=== PATIENT | female | born 1955 | race Caucasian/White ===

== ENCOUNTER 2020-11-11 16:25 | Emergency (ER) | payer MEDICARE, OTHER, SELFPAY ==
--- NOTE | 2020-11-11 | ECG_ITS ---
Test Reason : SHOTNESS OF BREATH Blood Pressure : / mmHG Vent. Rate : 059 BPM Atrial Rate : 059 BPM P-R Int : 150 ms QRS Dur : 084 ms QT Int : 410 ms P-R-T Axes : 073 034 065 degrees QTc Int : 405 ms Sinus bradycardia Otherwise normal ECG No previous ECGs available Referred By: Generic ED Physician Electronically Signed By:MARKY WEBB MD
--- NOTE | ~2020-11-11 | XR_ITS ---
EXAMINATION: CHEST 2 VIEWS CLINICAL INFORMATION: SOB . COMPARISON: No recent pertinent prior studies are available for comparison. TECHNIQUE: PA and lateral views of the chest obtained. FINDINGS: The lungs are well expanded. No focal infiltrate, effusion, edema, or pneumothorax. Cardiac and mediastinal silhouettes are within normal limits for technique. No acute bony abnormality seen XR/XR chest 2V IMPRESSION: No evidence of acute disease
[2020-11-11 16:40] VITALS: BP 128/84; PULSE 65; RESP 22; TEMP 36.6; O2SAT 100; BMI 24.3
[2020-11-11 17:06] LABS: MANUAL DIFF FLAG NO
[2020-11-11 17:07] LABS: Basophils Percent Auto 0.5 % (0-2); Eosinophils Absolute Auto 0.2 X10*3/uL (0.0-0.4); Eosinophils Percent Auto 3.6 % (0-4); Hematocrit 37.2 % (37-47); Hemoglobin 12.6 g/dl (12.0-16.0); Imm Gran Abs Auto 0.03 X10*3/uL (0.00-0.03); Imm Gran Pct Auto 0.5 % (0.0-0.4); Lymphocytes Absolute Auto 1.5 X10*3/uL (1.2-4.9); Lymphocytes Percent Auto 25.6 % (20-40); Mean Corpuscular HGB Conc 33.9 g/dl (31.0-35.0); Mean Corpuscular Hemoglobin 34.4 pg (27.0-33.0); Mean Corpuscular Volume 101.6 fL (80-98); Monocytes Absolute Auto 0.4 X10*3/uL (0.1-1.2); Monocytes Percent Auto 7.5 % (2-11); Neutrophils Absolute Auto 3.6 X10*3/uL (2.0-8.3); Neutrophils Percent Auto 62.3 % (45-73); Platelet Count 261 X10*3/uL (160-400); Red Blood Count 3.66 X10*6/uL (4.20-5.50); Red Cell Distribution Width 12.1 % (11.0-16.0); White Blood Count 5.9 X10*3/uL (4.8-10.8)
[2020-11-11 17:16] VITALS: BP 113/80; PULSE 66; RESP 18; TEMP 36.8; O2SAT 100
--- NOTE | 2020-11-11 17:19 | PC.NURSE ---
PT REPORTS FALLING ABOUT 2 WEEKS AGO. RIGHT RIB PAIN AFTER. NOW FEELING SOB AND HEAVY FEELING ON HER CHEST, PAIN WITH INSPIRATION. NSR ON TELE. PT CONCERNED OVER COVID BUT HAS HAD BOTH DOSES OF VACCINE. LABS DRAWN IN TRIAGE, WAITING RESULTS.
[2020-11-11 17:26] LABS: Anion Gap 10 (12-20); Blood Urea Nitrogen 15 mg/dL (9-16); Calcium 9.2 mg/dL (8.4-10.2); Carbon Dioxide 29 mmol/L (22-29); Chloride 101 mmol/L (96-108); Creatinine Clr Calc Pharmacy 57.2; Estimated Glomerular Filt Rate > 60; Glucose Random 88 mg/dL (60-115); Potassium 4.2 mmol/L (3.3-5.1); Sodium 136 mmol/L (135-145)
[2020-11-11 17:31] LABS: D Dimer < 200 NG/ML
[2020-11-11 17:33] LABS: Troponin-I High Sensitivity < 3.5 ng/L (<3.5-17.0)
--- NOTE | 2020-11-11 17:36 | ED.SOB ---
HPI - SOB/Dyspnea General Chief Complaint: Dyspnea Stated Complaint: SOB/Chest pressure Time Seen by Provider: 11/11/20 17:18 Source: patient Mode of arrival: ambulatory Limitations: no limitations History of Present Illness HPI Narrative: 64 years old female who is otherwise healthy, patient presented with mid chest pain started since yesterday described as pressure, pain has been constant since yesterday, no radiation for the pain just localized to the mid chest, nothing make it worse, nothing make it better, never had similar pain in the past, pain was associated with shortness of breath also been described as constant but worsen with exertion. Patient was skiing in her backyard 10 days ago when she fell on her right side complain of right-sided chest wall that is getting better now. Patient declined any recent travel, no lower extremity swelling or tenderness. No history of PE/DVT. Related Data Allergies Allergy/AdvReac Type Severity Reaction Status Date / Time No Known Allergies Allergy Verified 11/11/20 16:49 [No Known Allergies*] Review of Systems Review of Systems: All other systems are reviewed and are negative Constitutional: Reports as per HPI and Reports no additional constitutional complaints Eyes: Reports as per HPI and Reports no additional eye complaints Reports system reviewed and no additional complaints, except as documented Cardiovascular: Reports as per HPI and Reports no additional cardiovascular complaints Respiratory: Reports as per HPI and Reports no additional respiratory complaints Gastrointestinal: Reports as per HPI and Reports no additional gastrointestinal complaints Genitourinary: Reports no additional female genitourinary complaints Musculoskeletal: Reports no additional musculoskeletal complaints Skin/Breast: Reports system reviewed and no additional complaints, except as docu Psychiatric: Reports no additional psychiatric complaints Endocrine: Reports no additional endocrine complaints Hematologic/Lymphatic: Reports no additional hematologic/lymphatic complaints Allergic/Immunologic: Reports no additional allergic/immunologic complaints Reports system reviewed and no additional complaints, except as documented and Reports Abnormal speech present [facility] Past Medical History Medical History Hemochromatosis No known health problems Social History Social History Smoking Status: Never smoker Smoked in Last 30 Days: No Use of substances other than those prescribed or required for medical reasons: No Advance Directives: No Advance Directives Information Provided: Yes Physical Exam Vital Signs: Vital Signs: Last Vital Signs Temp 98.3 F 11/11/20 17:16 Pulse 66 11/11/20 17:16 Resp 18 11/11/20 17:16 BP 113/80 11/11/20 17:16 Pulse Ox 100 11/11/20 17:16 Body Mass Index 24.3 Vital signs have been reviewed as normal and appeared to be correct. Blood pressure normal. Heart rate normal. Respiration rate normal. Temperature normal. Oxygen saturation normal. Appearance: Alert. Oriented X3. No acute distress. Head: Normal external exam. Normocephalic. Atraumatic. No Franco signs noted. No raccoon eyes noted Eyes: PERRLA. EOMI. Conjunctiva and sclera normal. Eyelids normal. ENT: TM's Normal. Pharynx normal. Uvula midline. Moist mucous membranes. No trismus noted. No drooling noted. No muffled voice noted. Neck: Normal inspection. Neck supple. FROM. No adenopathy. Thyroid Normal. No meningeal signs. No neck mass noted. CVS: Normal heart rate and rhythm. Heart sound normal. No murmurs noted. Pulses normal throughout. Respiratory: No respiratory distress. Painless inspiration. Breath sounds normal. No wheezes/rales/rhonchi noted. Chest nontender. No accessory muscle usage noted or decreased air movement noted. Abdomen: Soft and nontender. Bowel sounds normal in all 4 quadrants. No distention noted. No organomegaly noted. No visible injury noted. Back: No CVA tenderness. Full range of motion noted. Skin: Skin warm and dry. Normal skin color. Normal skin turgor. No rashes/lesions/lacerations noted. Extremities: No lower extremity edema. Extremities exhibit normal range of motion. Extremities nontender. Neuro: Oriented X 3. No motor deficit. No sensory deficit. Reflexes normal. Course Course Course Narrative: Assessment and plan. 64-year-old female otherwise healthy, recently vaccinated for COVID-19, presented with chest pain/shortness of breath. Patient has HEART score 1, patient also has no risk for PE/DVT with normal D-dimer. Chest x-ray ruled out traumatic etiology for patient's symptoms. Patient maintains normal vital sign while she is in the emergency department. Patient was reassured and instructed to follow-up with her PCP for routine follow-up. MDM - SOB/Dyspnea Lab Data Attestation: I reviewed the patient's lab results. Result diagrams: 11/11/20 17:00 11/11/20 17:00 Labs: Lab Results 11/11/20 11/11/20 11/11/20 Range/Units 17:00 17:00 17:00 WBC 5.9 (4.8-10.8) X10*3/uL RBC 3.66 L (4.20-5.50) X10*6/uL Hgb 12.6 (12.0-16.0) g/dl Hct 37.2 (37-47) % MCV 101.6 H (80-98) fL MCH 34.4 H (27.0-33.0) pg MCHC 33.9 (31.0-35.0) g/dl RDW 12.1 (11.0-16.0) % Plt Count 261 (160-400) X10*3/uL MPV 9.0 L (9.4-12.3) fL Immature Gran % (Auto) 0.5 H (0.0-0.4) % Neut % (Auto) 62.3 (45-73) % Lymph % (Auto) 25.6 (20-40) % [place] % (Auto) 7.5 (2-11) % Eos % (Auto) 3.6 (0-4) % Baso % (Auto) 0.5 (0-2) % Lymph # (Auto) 1.5 (1.2-4.9) X10*3/uL [place] # (Auto) 0.4 (0.1-1.2) X10*3/uL Eos # (Auto) 0.2 (0.0-0.4) X10*3/uL Baso # (Auto) 0.0 (0.0-0.2) X10*3/uL Abs Immat Gran (auto) 0.03 (0.00-0.03) X10*3/uL Absolute Neuts (auto) 3.6 (2.0-8.3) X10*3/uL Absolute Nucleated RBC 0.000 (0.0-0.012) X10*3/uL Nucleated RBC % (auto) 0.0 (0.0-0.2) /100WBC D-Dimer < 200 NG/ML Hold Blue Top SEE NOTE Sodium 136 (135-145) mmol/L Potassium 4.2 (3.3-5.1) mmol/L Chloride 101 (96-108) mmol/L Carbon Dioxide 29 (22-29) mmol/L Anion Gap 10 L (12-20) BUN 15 (9-16) mg/dL Creatinine 0.80 (0.5-1.4) mg/dL Estim Creat Clear Calc 57.2 Estimated GFR > 60 Random Glucose 88 (60-115) mg/dL Calcium 9.2 (8.4-10.2) mg/dL Troponin I High Sens (<3.5-17.0) ng/L B-Natriuretic Peptide (<100) pg/mL Coronavirus (PCR) (Negative) Influenza Type A (PCR) (Negative) Influenza Type B (PCR) (Negative) RSV RNA Qual (PCR) (Negative) 11/11/20 11/11/20 11/11/20 Range/Units 17:00 17:00 17:00 WBC (4.8-10.8) X10*3/uL RBC (4.20-5.50) X10*6/uL Hgb (12.0-16.0) g/dl Hct (37-47) % MCV (80-98) fL MCH (27.0-33.0) pg MCHC (31.0-35.0) g/dl RDW (11.0-16.0) % Plt Count (160-400) X10*3/uL MPV (9.4-12.3) fL Immature Gran % (Auto) (0.0-0.4) % Neut % (Auto) (45-73) % Lymph % (Auto) (20-40) % [place] % (Auto) (2-11) % Eos % (Auto) (0-4) % Baso % (Auto) (0-2) % Lymph # (Auto) (1.2-4.9) X10*3/uL [place] # (Auto) (0.1-1.2) X10*3/uL Eos # (Auto) (0.0-0.4) X10*3/uL Baso # (Auto) (0.0-0.2) X10*3/uL Abs Immat Gran (auto) (0.00-0.03) X10*3/uL Absolute Neuts (auto) (2.0-8.3) X10*3/uL Absolute Nucleated RBC (0.0-0.012) X10*3/uL Nucleated RBC % (auto) (0.0-0.2) /100WBC D-Dimer NG/ML Hold Blue Top Sodium (135-145) mmol/L Potassium (3.3-5.1) mmol/L Chloride (96-108) mmol/L Carbon Dioxide (22-29) mmol/L Anion Gap (12-20) BUN (9-16) mg/dL Creatinine (0.5-1.4) mg/dL Estim Creat Clear Calc Estimated GFR Random Glucose (60-115) mg/dL Calcium (8.4-10.2) mg/dL Troponin I High Sens < 3.5 (<3.5-17.0) ng/L B-Natriuretic Peptide 54 (<100) pg/mL Coronavirus (PCR) NEGATIVE (Negative) Influenza Type A (PCR) NEGATIVE (Negative) Influenza Type B (PCR) NEGATIVE (Negative) RSV RNA Qual (PCR) NEGATIVE (Negative) Imaging Data Chest x-ray: Radiologist's impression: No evidence of acute disease. ECG Data Interpretation: Sinus bradycardia at 59 beats per minute, normal axis deviation, normal intervals, no ST-T changes. Discharge Plan Discharge Clinical Impression: Chest pain Patient Disposition: Home, Self-Care Instructions: Chest Pain (ED) Referrals: Juan David Ramos MD [Primary Care Provider] - 2 days
[2020-11-11 17:48] LABS: Influenza A PCR NEGATIVE (Negative); Influenza B PCR NEGATIVE (Negative); Resp Syncy Virus RNA Qual PCR NEGATIVE (Negative); SARS COV2 PCR INHOUSE NEGATIVE (Negative)
[2020-11-11 18:24] LABS: B Type Natriuretic Peptide 54 pg/mL (<100)
[2020-11-11 19:02] VITALS: BP 116/55; PULSE 64; RESP 16; O2SAT 98
== END 2020-11-11 19:04 | disposition home or self-care (01) ==
PROVIDERS: Emergency Provider Emergency Medicine; PCP Family Medicine
DX: R07.9 Chest pain, unspecified (principal); R00.1 Bradycardia, unspecified; Z20.822 Contact with and (suspected) exposure to COVID-19
CPT/HCPCS: 0241U; 36415; 71046; 80048; 83880; 84484; 85025; 85379; 93005; 99283; 99284

== ENCOUNTER 2021-04-17 13:58 | Outpatient (REF) | payer MEDICARE, OTHER, SELFPAY ==
[2021-04-17 15:27] LABS: MANUAL DIFF FLAG NO
[2021-04-17 15:29] LABS: Basophils Percent Auto 0.3 % (0-2); Eosinophils Absolute Auto 0.1 X10*3/uL (0.0-0.4); Eosinophils Percent Auto 1.7 % (0-4); Hematocrit 36.6 % (37-47); Hemoglobin 12.5 g/dl (12.0-16.0); Imm Gran Abs Auto 0.01 X10*3/uL (0.00-0.03); Imm Gran Pct Auto 0.2 % (0.0-0.4); Lymphocytes Absolute Auto 1.4 X10*3/uL (1.2-4.9); Lymphocytes Percent Auto 23.7 % (20-40); Mean Corpuscular HGB Conc 34.2 g/dl (31.0-35.0); Mean Corpuscular Hemoglobin 34.3 pg (27.0-33.0); Mean Corpuscular Volume 100.5 fL (80-98); Mean Platelet Volume 9.8 fL (9.4-12.3); Monocytes Absolute Auto 0.4 X10*3/uL (0.1-1.2); Monocytes Percent Auto 6.8 % (2-11); Neutrophils Absolute Auto 4.1 X10*3/uL (2.0-8.3); Neutrophils Percent Auto 67.3 % (45-73); Platelet Count 217 X10*3/uL (160-400); Red Blood Count 3.64 X10*6/uL (4.20-5.50); Red Cell Distribution Width 12.5 % (11.0-16.0)
[2021-04-17 15:48] LABS: Alanine Aminotransferase 12 U/L (0-31); Albumin Level 4.4 g/dL (3.5-5.0); Alkaline Phosphatase 58 U/L (39-117); Aspartate Amino Transferase 22 U/L (5-31); Bilirubin Direct 0.2 mg/dL (0.0-0.5); Bilirubin Total 0.5 mg/dL (0.0-1.0); Total Protein 7.1 g/dL (6.5-8.0)
[2021-04-18 16:37] LABS: Folate 13.9 ng/mL (> or = 4.0); Vitamin B12 592 pg/mL (200-900)
== END 2021-04-17 13:59 | disposition home or self-care (01) ==
LOC: HO.LAB 13:58
PROVIDERS: PCP Family Medicine; Visit Provider Nurse Practitioner
DX: D75.89 Other specified diseases of blood and blood-forming organs (principal); R14.0 Abdominal distension (gaseous)
CPT/HCPCS: 36415; 80076; 82607; 82746; 85025; 99202

== ENCOUNTER → 2021-06-07 13:42 | Outpatient (BNVA) | payer MEDICARE, OTHER, SELFPAY | PROVIDERS: PCP Family Medicine; Referring Provider Family Medicine; Visit Provider Nurse Practitioner | DX: Z12.11 Encounter for screening for malignant neoplasm of colon (principal); D75.89 Other specified diseases of blood and blood-forming organs; R23.8 Other skin changes | CPT/HCPCS: 99212 ==

== ENCOUNTER 2021-06-13 14:00 | Outpatient (RCR) | payer MEDICARE, OTHER, SELFPAY | END 2021-06-22 09:44 | disposition home or self-care (01) | LOC: HO.PT 14:00 | PROVIDERS: PCP Family Medicine; Visit Provider Nurse Practitioner Family | DX: M25.572 Pain in left ankle and joints of left foot (principal) | CPT/HCPCS: 97110; 97112; 97162; 97530 ==

== ENCOUNTER 2021-11-19 13:59 | Outpatient (REF) | payer MEDICARE, OTHER, SELFPAY ==
--- NOTE | ~2021-11-19 | XR_ITS ---
EXAMINATION: XR LUMBOSACRAL SPINE CLINICAL INFORMATION: Low back pain. COMPARISON: None TECHNIQUE: Three views of the lumbosacral spine. FINDINGS: There is normal lumbar lordosis. The vertebral heights, alignment and disc heights are normal. There is no visible acute fracture, dislocation or lytic process seen. There is moderate right L4-L5 facet joint arthropathy. No lytic or sclerotic process seen. Incidental findings of a radiopaque density adjacent to right L2 vertebra, question pelvic stone. Paravertebral soft tissues are normal. XR/XR lumbar spine 2-3V IMPRESSION: Moderate right L4-L5 facet joint arthropathy. No visible acute fracture, dislocation or lytic process seen. Suspect right renal pelvic stone.
== END 2021-11-19 14:00 | disposition home or self-care (01) ==
LOC: HO.XRAY 13:59
PROVIDERS: PCP Nurse Practitioner Family; Visit Provider Nurse Practitioner Family
DX: M54.50 Low back pain, unspecified (principal)
CPT/HCPCS: 72100

== ENCOUNTER → 2021-12-28 13:30 | Outpatient (BNVA) | payer MEDICARE, OTHER, SELFPAY | PROVIDERS: PCP Nurse Practitioner Family; Visit Provider Advanced Practice Midwife | DX: Z01.411 Encounter for gynecological examination (general) (routine) with abnormal findings (principal); N95.1 Menopausal and female climacteric states | CPT/HCPCS: 99212 ==

== ENCOUNTER 2022-04-08 11:51 | Outpatient (REF) | payer MEDICARE, OTHER, SELFPAY ==
--- NOTE | ~2022-04-08 | MM_ITS ---
EXAMINATION: MM SCREENING DIGITAL BREAST TOMOSYNTHESIS, BILATERAL CLINICAL INFORMATION: Screening. Asymptomatic. The lifetime risk of breast cancer based on the Tyrer-Cuzick Model is 4%. COMPARISON: Outside mammography 2-D images: 04/29/2014, 04/28/2013 ([facility]). TECHNIQUE: Digital breast tomosynthesis is performed in both the craniocaudal and mediolateral oblique views along with computer-aided detection (CAD). Synthesized 2D images are generated from the tomosynthesis. FINDINGS: There are scattered areas of fibroglandular density (ACR BI-RADS breast composition Category b). Left breast parenchymal pattern is similar to prior outside studies. There is no mass or architectural abnormality. Neither breast shows abnormal calcifications. The bilateral axilla and skin contours are unremarkable. Right CC view has subtle asymmetric density outer quadrant mid depth 6.5 cm from nipple without MLO correlate, possibly summation artifact. Patient will be recalled for additional imaging. MM/MM tomosynthesis screening BI IMPRESSION: Right: -Asymmetric density mid outer quadrant on CC view, possibly summation artifact. Left: -No mammographic evidence of malignancy. ASSESSMENT: BI-RADS 0: Incomplete - Need Additional Imaging Evaluation RECOMMENDATION: 1. Additional views of the right breast (spot CC, rolled CC x2). 2. Targeted ultrasound if warranted after review of the additional views. 3. Radiology department staff will contact the patient for additional imaging. This patient's information was entered into a reminder system with a target due date for their next mammogram.
== END 2022-04-08 11:52 | disposition home or self-care (01) ==
LOC: HO.MAMMO 11:51
PROVIDERS: Visit Provider Advanced Practice Midwife
DX: Z12.31 Encounter for screening mammogram for malignant neoplasm of breast (principal)
CPT/HCPCS: 77063; 77067

== ENCOUNTER 2022-04-23 13:00 | Outpatient (RCR) | payer MEDICARE, OTHER, SELFPAY | END 2022-06-11 14:37 | disposition home or self-care (01) | LOC: HO.PTWFD 13:00 | PROVIDERS: PCP Nurse Practitioner Family; Visit Provider Nurse Practitioner Family | DX: M25.511 Pain in right shoulder (principal) | CPT/HCPCS: 97014; 97110; 97140; 97161; 97535 ==

== ENCOUNTER 2022-04-24 13:16 | Outpatient (REF) | payer MEDICARE, OTHER, SELFPAY ==
--- NOTE | ~2022-04-24 | XR_ITS ---
EXAMINATION: XR SACROILIAC JOINTS CLINICAL INFORMATION: Sacrococcygeal disorder COMPARISON: None TECHNIQUE: 3 views of the sacroiliac joints FINDINGS: Bone alignment is normal. No fracture or dislocation is seen. Sacroiliac joints are normal without evidence of sacroiliitis. There are degenerative changes of the visualized lower lumbar spine. There are mild degenerative changes at the hip joints with small acetabular osteophytes. Soft tissues are unremarkable. XR/XR sacroiliac joint 1-2V IMPRESSION: Normal sacroiliac joints.
--- NOTE | ~2022-04-24 | XR_ITS ---
EXAMINATION: XR HIP, RIGHT CLINICAL INFORMATION: Sacrococcygeal disorder COMPARISON: None TECHNIQUE: Two views of the right hip and one view of the pelvis. FINDINGS: Bone alignment is normal. No fracture or dislocation is seen. There is mild right hip arthritis with superior lateral acetabular osteophyte. Bones of the pelvis are normal. There are degenerative changes of the visualized lower lumbar spine, right greater than left. Soft tissues are unremarkable. XR/XR hip RT w PEL1V IMPRESSION: Mild right hip arthritis.
== END 2022-04-24 13:17 | disposition home or self-care (01) ==
LOC: HO.XRAY 13:16
PROVIDERS: PCP Physician Assistant; Visit Provider Nurse Practitioner Family
DX: M53.3 Sacrococcygeal disorders, not elsewhere classified (principal)
CPT/HCPCS: 72200; 73502

== ENCOUNTER 2022-06-27 09:16 | Outpatient (REF) | payer MEDICARE, OTHER, SELFPAY ==
[2022-06-27 10:18] LABS: Hematocrit 37.5 % (37.0-47.0); Hemoglobin 12.7 g/dl (12.0-16.0); Mean Corpuscular HGB Conc 33.9 g/dl (31.0-35.0); Mean Corpuscular Volume 100.3 fL (80.0-98.0); Mean Platelet Volume 9.4 fL (9.4-12.3); Platelet Count 254 X10*3/uL (160-400); Red Blood Count 3.74 X10*6/uL (4.20-5.50); Red Cell Distribution Width 12.3 % (11.0-16.0); White Blood Count 4.4 X10*3/uL (4.8-10.8)
[2022-06-27 10:43] LABS: Alanine Aminotransferase 16 U/L (0-31); Albumin Level 4.3 g/dL (3.5-5.0); Alkaline Phosphatase 47 U/L (39-117); Anion Gap 14 (12-20); Aspartate Amino Transferase 23 U/L (5-31); Bilirubin Total 0.3 mg/dL (0.0-1.0); Blood Urea Nitrogen 11 mg/dL (9-16); Calcium 9.1 mg/dL (8.4-10.2); Carbon Dioxide 25 mmol/L (22-29); Chloride 100 mmol/L (96-108); Cholesterol 184 mg/dL; Estimated Glomerular Filt Rate > 60; Glucose Fasting 88 mg/dL (60-99); HDL Cholesterol 75 mg/dL; Iron 138 mcg/dL (30-160); LDL Cholesterol Calculated 97 mg/dl; Percent Iron Saturation 59 % (15-50); Potassium 4.4 mmol/L (3.3-5.1); Sodium 135 mmol/L (135-145); Total Iron Binding Capacity 234 mcg/dL (228-428); Total Protein 6.7 g/dL (6.5-8.0); Triglycerides 61 mg/dL; Unsaturated Iron Binding 96 ug/dL
[2022-06-27 11:07] LABS: Ferritin 128 ng/mL (10-250); TSH reflex Free T4 1.42 uIU/mL (0.32-4.0)
== END 2022-06-27 09:17 | disposition home or self-care (01) ==
LOC: HO.LAB 09:16
PROVIDERS: Visit Provider Physician Assistant
DX: E83.119 Hemochromatosis, unspecified (principal); Z13.220 Encounter for screening for lipoid disorders; Z13.29 Encounter for screening for other suspected endocrine disorder; Z13.1 Encounter for screening for diabetes mellitus
CPT/HCPCS: 36415; 80053; 80061; 82728; 83540; 84443; 85027

== ENCOUNTER 2022-07-02 10:21 | Outpatient (REF) | payer MEDICARE, OTHER, SELFPAY ==
--- NOTE | ~2022-07-02 | MM_ITS ---
EXAMINATION: MM DIAGNOSTIC DIGITAL BREAST TOMOSYNTHESIS, RIGHT CLINICAL INFORMATION: Recall from screening for subtle asymmetric density mid outer right breast limited to CC view, possibly summation artifact. COMPARISON: Mammography: 04/08/2022, outside mammography 04/29/2014 and 04/28/2013 ([facility]). TECHNIQUE: Digital breast tomosynthesis is performed. 2D images are generated from the tomosynthesis. The following views are obtained: Spot CC, rolled CC x2. FINDINGS: There are scattered areas of fibroglandular density (ACR BI-RADS breast composition Category b). The subtle asymmetric density is less conspicuous on the spot CC view. There is no correlate on the rolled CC views and no correlate is seen on the MLO screening exam. Finding is therefore believed to represent summation artifact. As a precaution, short interval follow-up right mammography will be requested to exclude remote possibility of a developing density. Results are discussed with the patient at time of visit. MM/MM tomosynthesis added views R IMPRESSION: Additional views show no persistent asymmetric density on the rolled CC view is suggesting summation artifact as suspected. ASSESSMENT: BI-RADS 3: Probably Benign RECOMMENDATION: Diagnostic right mammography in 6 months. This patient's information was entered into a reminder system with a target due date for their next mammogram.
== END 2022-07-02 10:22 | disposition home or self-care (01) ==
LOC: HO.MAMMO 10:21
PROVIDERS: PCP Physician Assistant; Visit Provider Physician Assistant
DX: R92.2 Inconclusive mammogram (principal)
CPT/HCPCS: 77061; 77065

== ENCOUNTER 2022-08-09 11:42 | Outpatient (REF) | payer MEDICARE, OTHER, SELFPAY ==
[2022-08-09 12:21] LABS: Appearance Urine Clear; Color Urine Yellow; Glucose Urine UA Negative (Negative); Leukocyte Esterase Urine Negative (Negative); Nitrite Urine Negative (Negative); Urine Blood Negative (Negative); Urine Ketones Negative (Negative); Urine Protein Negative (Neg-Trace)
== END 2022-08-09 11:43 | disposition home or self-care (01) ==
LOC: HO.LAB 11:42
PROVIDERS: PCP Physician Assistant; Visit Provider Physician Assistant
DX: R30.0 Dysuria (principal)
CPT/HCPCS: 81003

== ENCOUNTER 2022-11-05 11:40 | Outpatient (REF) | payer MEDICARE, OTHER, SELFPAY ==
--- NOTE | ~2022-11-05 | XR_ITS ---
EXAMINATION: RIGHT HIP AND RIGHT SHOULDER CLINICAL INFORMATION: Pain COMPARISON: None TECHNIQUE: Right shoulder 4 views. Right hip 2 views FINDINGS: Right hip: There is no visible acute fracture, dislocation or subluxation. The joint space is maintained normal. No bony erosive changes seen. The soft tissues are normal. Right shoulder: The glenohumeral and AC joint space is maintained normal. No visible acute fracture, dislocation or subluxation seen. The soft tissues are normal. XR/XR hip RT min 2V IMPRESSION: 1. Unremarkable right hip exam. 2. Unremarkable right shoulder exam.
--- NOTE | ~2022-11-05 | XR_ITS ---
EXAMINATION: RIGHT HIP AND RIGHT SHOULDER CLINICAL INFORMATION: Pain COMPARISON: None TECHNIQUE: Right shoulder 4 views. Right hip 2 views FINDINGS: Right hip: There is no visible acute fracture, dislocation or subluxation. The joint space is maintained normal. No bony erosive changes seen. The soft tissues are normal. Right shoulder: The glenohumeral and AC joint space is maintained normal. No visible acute fracture, dislocation or subluxation seen. The soft tissues are normal. XR/XR shoulder RT min 2V IMPRESSION: 1. Unremarkable right hip exam. 2. Unremarkable right shoulder exam.
== END 2022-11-05 11:41 | disposition home or self-care (01) ==
LOC: HO.XRAY 11:40
PROVIDERS: PCP Physician Assistant; Visit Provider Internal Medicine
DX: M25.511 Pain in right shoulder (principal); M25.551 Pain in right hip
CPT/HCPCS: 73030; 73502

== ENCOUNTER → 2022-12-30 13:49 | Outpatient (BNVA) | payer MEDICARE, OTHER, SELFPAY | PROVIDERS: PCP Physician Assistant; Visit Provider Advanced Practice Midwife ==

== ENCOUNTER 2022-12-31 14:25 | Outpatient (REF) | payer MEDICARE, OTHER, SELFPAY ==
--- NOTE | ~2022-12-31 | MM_ITS ---
EXAMINATION: MM DIAGNOSTIC DIGITAL BREAST TOMOSYNTHESIS, RIGHT CLINICAL INFORMATION: Short interval six-month follow-up right breast for subtle asymmetric density mid outer breast limited to CC view, suspected summation artifact. Assess for developing density. The lifetime risk of breast cancer based on the Tyrer-Cuzick Model is 4%. COMPARISON: Mammography: 07/02/2022, 04/08/2022, outside mammography 05/13/2018 ([facility]) TECHNIQUE: Digital breast tomosynthesis is performed in both the craniocaudal and mediolateral oblique views along with computer-aided detection (CAD). Synthesized 2D images are generated from the tomosynthesis. FINDINGS: There are scattered areas of fibroglandular density (ACR BI-RADS breast composition Category b). The asymmetric density noted on prior exam 04/08/2022 is no longer demonstrated. There is no developing density or interval mass or architectural abnormality. No abnormal calcifications. The stromal markings appearing normal. The skin contours are smooth. The axilla is unremarkable. Results are provided to the patient at time of visit by the technologist. MM/MM tomosynthesis diagnostic RT IMPRESSION: -The asymmetric density for follow-up is no longer demonstrated. -No mammographic evidence of malignancy. ASSESSMENT: BI-RADS 1: Negative RECOMMENDATION: Routine annual mammography screening. This patient's information was entered into a reminder system with a target due date for their next mammogram.
== END 2022-12-31 14:26 | disposition home or self-care (01) ==
LOC: HO.MAMMO 14:25
PROVIDERS: PCP Physician Assistant; Visit Provider Physician Assistant
DX: N64.89 Other specified disorders of breast (principal)
CPT/HCPCS: 77061; 77065

== ENCOUNTER 2023-02-04 11:18 | Outpatient (REF) | payer MEDICARE, OTHER, SELFPAY ==
[2023-02-04 12:10] LABS: Hematocrit 36.1 % (37.0-47.0); Hemoglobin 12.1 g/dl (12.0-16.0); Mean Corpuscular HGB Conc 33.5 g/dl (31.0-35.0); Mean Corpuscular Hemoglobin 34.1 pg (27.0-33.0); Mean Corpuscular Volume 101.7 fL (80.0-98.0); Mean Platelet Volume 9.4 fL (9.4-12.3); Platelet Count 233 X10*3/uL (160-400); Red Blood Count 3.55 X10*6/uL (4.20-5.50); Red Cell Distribution Width 12.1 % (11.0-16.0); White Blood Count 3.9 X10*3/uL (4.8-10.8)
[2023-02-04 13:53] LABS: Alanine Aminotransferase 13 U/L (0-31); Albumin Level 4.2 g/dL (3.5-5.0); Alkaline Phosphatase 57 U/L (39-117); Anion Gap 10 (12-20); Aspartate Amino Transferase 22 U/L (5-31); Bilirubin Total 0.6 mg/dL (0.0-1.0); Blood Urea Nitrogen 9 mg/dL (9-16); Calcium 9.3 mg/dL (8.4-10.2); Carbon Dioxide 28 mmol/L (22-29); Chloride 105 mmol/L (96-108); Cholesterol 187 mg/dL; Estimated Glomerular Filt Rate > 60; Glucose Fasting 95 mg/dL (60-99); HDL Cholesterol 83 mg/dL; LDL Cholesterol Calculated 94 mg/dl; Magnesium 2.2 mg/dL (1.6-2.6); Potassium 4.5 mmol/L (3.3-5.1); Sodium 138 mmol/L (135-145); Total Protein 6.6 g/dL (6.5-8.0); Triglycerides 52 mg/dL
[2023-02-04 14:21] LABS: Vitamin B12 803 pg/mL (200-900)
== END 2023-02-04 11:19 | disposition home or self-care (01) ==
LOC: HO.LAB 11:18
PROVIDERS: PCP Physician Assistant; Visit Provider Physician Assistant
DX: M25.551 Pain in right hip (principal); M25.552 Pain in left hip; E83.110 Hereditary hemochromatosis; M81.0 Age-related osteoporosis without current pathological fracture; E53.8 Deficiency of other specified B group vitamins; D75.89 Other specified diseases of blood and blood-forming organs; Z13.1 Encounter for screening for diabetes mellitus; Z13.220 Encounter for screening for lipoid disorders
CPT/HCPCS: 36415; 80053; 80061; 82607; 82746; 83735; 85027

== ENCOUNTER 2023-05-20 12:29 | Outpatient (AMB) | payer MEDICARE, OTHER, SELFPAY ==
--- NOTE | 2023-05-20 12:32 | A.OFFVIS_ITS ---
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 Hx of PT with mild relief. Patient reports off and on pain for many years. She states a pulling sensation when walking, sit ting and exercising. She describes her pain as sharp and severe in nature. Most of the pain is located within her right groin. Patient states that she has not been able to walk for exercise because of her pain. She has tried Tylenol and anti-inflammatory medicines which gave her minimal relief. Allergies No Known Allergies [No Known Allergies*] Allergy (Verified 05/20/23 12:38) Medication List - Last Reconciled 05/20/23 by Irvin Zamora MD alendronate 70 mg PO QWEEK buspirone 75 mg PO BEDTIME calcium carbonate (Calcium 500) 500 mg PO DAILY cholecalciferol (vitamin D3) 10 mcg PO DAILY escitalopram oxalate 20 mg PO DAILY 90 days estradiol 0.01%(0.1mg/gram) (Estrace) 1 g vaginal 2XW PRN [id number] 500-400-80 mg tabs PO omega-3 fatty acids (Fish Oil Concentrate) 1,000 mg PO DAILY turmeric mg PO vitamin B complex 1 tab PO DAILY PFSH Medical History Hemochromatosis No known health problems Osteoporosis Surgical History H/O colonoscopy History of esophagogastroduodenoscopy (EGD) Family History Other Mental health disorder Social History Household Members Other:: partner Housing: House Alcohol intake: current Alcohol intake frequency: a few times a week Alcohol type: beer Patient Tobacco Use Status: Former Tobacco user Cigarettes Per Day: 20 Years Smoked: 15 e-Cigarette/Vaping Use: Never Used service: No Current occupational status: retired Cognitive needs: No Hearing needs: No Vision needs: Yes (Glasses) Physical Exam Const Other: Well-nourished well-developed very friendly female awake alert and oriented x3 in no acute distress Extrem Other: Bilateral lower extremity examination shows good capillary refill, no skin lesions noted, normal sensation light touch Right hip examination shows decreased range of motion when compared to her left hip, pain with range of motion, no tenderness over her bursa, increased pain with forward flexion and internal rotation Results Reviewed Results Reviewed: X-rays of the patient's right hip show mild diffuse joint space narrowing, no acute bony abnormalities Assessment & Plan Assessment & Plan (1) Right hip pain: Code(s): M25.551 - Pain in right hip Plan: Ms. Pepper presents with progressively worsening right hip pain possibly due to avascular necrosis of her femoral head. Thus, I will send the patient for an MRI for further evaluation. I will contact her by phone once the MRI results are available. She will continue with her activity modifications in the meantime. Feel free to call me at any time should questions regarding her orthopedic management arise. I spent 22 minutes in reviewing the patient's records and imaging studies, seeing the patient and documenting in the medical record. Orders: Orders MR hip RT wo con Today M25.551 - Pain in right hip Coding Level of Care Code New Pt Level 2 (66996) Diagnoses Right hip pain M25.551
== END 2023-05-20 13:12 | disposition home or self-care (01) ==
PROVIDERS: PCP Physician Assistant; Visit Provider Orthopaedic Surgery
DX: M25.551 Pain in right hip (principal)
CPT/HCPCS: 99202

== ENCOUNTER → 2023-05-20 12:29 | Outpatient (BNVA) | payer MEDICARE, OTHER, SELFPAY | PROVIDERS: PCP Physician Assistant; Visit Provider Orthopaedic Surgery | DX: M25.551 Pain in right hip (principal) | CPT/HCPCS: 99202 ==

== ENCOUNTER 2023-06-24 17:47 | Outpatient (REF) | payer MEDICARE, OTHER, SELFPAY ==
--- NOTE | ~2023-06-24 | MR_ITS ---
EXAMINATION: MR HIP WITHOUT CONTRAST, RIGHT CLINICAL INFORMATION: Chronic right hip pain. Gluteal pain. COMPARISON: Right hip radiographs dated 11/05/2022. TECHNIQUE: MRI of the right hip was obtained using routine sequences on a high-field strength magnet. FINDINGS: ACETABULAR LABRUM: Mild attenuation and irregularity of the anterosuperior labrum consistent with nondisplaced, irregular tearing. ARTICULAR CARTILAGE/BONE: Mild articular cartilage thinning with small marginal osteophytes. No stress reaction, fracture, or avascular necrosis. No concerning lytic or blastic osseous lesion. The alpha angle equals approximately 40 degrees as measured at the 3 o'clock position on the sagittal oblique images. The acetabular depth is within normal limits. Partially visualized mild osteoarthritis within the left hip on large [id number] imaging. Mild degenerative disc disease within the lower lumbar spine. Tarlov cysts within the sacrum. MUSCLES/TENDONS: Attenuation and irregularity of the gluteus minimus tendon with adjacent edema. There are thin anterior tendon fibers remain intact. Findings are consistent with tendinosis and chronic partial tearing. There is more moderate edema adjacent to the gluteus medius tendon, consistent with moderate tendinosis. Mild proximal right hamstring tendinosis. JOINT FLUID/BURSA: Small amount of fluid within the greater trochanteric bursa, consistent with mild bursitis. No significant joint effusion. INTRAPELVIC STRUCTURES: Unremarkable. MR/MR hip RT wo con IMPRESSION: 1. Mild right hip osteoarthritis. No stress reaction, fracture, or avascular necrosis. 2. Nondisplaced, irregular tearing of the anterosuperior labrum. 3. Prominent tendinosis and chronic partial tearing of the gluteus minimus tendon. More moderate gluteus medius tendinosis. Mild proximal right hamstring tendinosis. 4. Mild greater trochanteric bursitis.
== END 2023-06-24 17:48 | disposition home or self-care (01) ==
LOC: HO.MRI 17:47
PROVIDERS: PCP Physician Assistant; Visit Provider Physician Assistant
DX: M25.551 Pain in right hip (principal)
CPT/HCPCS: 73721

== ENCOUNTER 2023-07-02 11:29 | Outpatient (AMB) | payer MEDICARE, OTHER, SELFPAY ==
--- NOTE | 2023-07-02 11:31 | MHC.OFFVIS ---
Intake Vital Signs 07/02/23 11:37 Height 5 ft 3 in Weight 138 lb BMI 24.4 Intake Visit Reasons: MRI review of RT hip Intake Note: Ema is a 67 year old female who presents today for a MRI review of her right hip. The patient states that her symptoms did decrease somewhat when she stops exercising for a while. She has gotten massages in the past. She has also been seen by a myofascial retail marketing specialist. Those treatments gave her fairly good relief. Patient does take fish oil. She has taken glucosamine and chondroitin which gave her minimal relief. Allergies No Known Allergies [No Known Allergies*] Allergy (Verified 05/20/23 12:38) Medication List - Last Reconciled 07/02/23 by Irvin Zamora MD alendronate 70 mg PO QWEEK buspirone 75 mg PO BEDTIME calcium carbonate (Calcium 500) 500 mg PO DAILY cholecalciferol (vitamin D3) 10 mcg PO DAILY escitalopram oxalate 20 mg PO DAILY 90 days estradiol 0.01%(0.1mg/gram) (Estrace) 1 g vaginal 2XW PRN jjfirvqqazr-qiyzwyaomyd-gobpjw 500-400-80 mg tabs PO omega-3 fatty acids (Fish Oil Concentrate) 1,000 mg PO DAILY turmeric mg PO vitamin B complex 1 tab PO DAILY PFSH Medical History Hemochromatosis No known health problems Osteoporosis Surgical History H/O colonoscopy History of esophagogastroduodenoscopy (EGD) Family History Other Mental health disorder Social History Household Members Other:: partner Housing: House Alcohol intake: current Alcohol intake frequency: a few times a week Alcohol type: beer Patient Tobacco Use Status: Former Tobacco user Cigarettes Per Day: 20 Years Smoked: 15 e-Cigarette/Vaping Use: Never Used service: No Current occupational status: retired Cognitive needs: No Hearing needs: No Vision needs: Yes (Glasses) Physical Exam Vital Signs: BMI result Body Mass Index 24.4 Const Other: Well-nourished well-developed very friendly female awake alert and oriented x3 in no acute distress Extrem Other: Right hip examination shows slightly decreased range of motion when compared to her left hip, mild tenderness over her bursa Results Reviewed Results Reviewed: MRI of the patient's right hip shows mild diffuse degenerative changes as well as a small labral tear, inflammation versus possible partial-thickness tearing of her gluteus medius tendon, no evidence of avascular necrosis or severe degenerative joint disease Assessment & Plan Assessment & Plan (1) Right hip pain: Code(s): M25.551 - Pain in right hip Plan: Ms. Pepper presents with intermittent right hip pain most likely due to soft tissue tightness and inflammation. At this point the patient does not appear to have a surgically correctable problem. I had a lengthy discussion with the patient regarding exercise, stretching and modalities such as massage therapy and myofascial release. The patient will continue to focus on exercises and treatments that improve or do not exacerbate her symptoms. She will follow up with me on an as-needed basis. Feel free to call me at any time should questions regarding her orthopedic management arise. I spent 22 minutes in reviewing the patient's records and imaging studies, seeing the patient and documenting in the medical record. Coding Level of Care Code Est Pt Level 2 (70146) Diagnoses Right hip pain M25.551
[2023-07-02 11:37] VITALS: BMI 24.4
== END 2023-07-02 12:08 | disposition home or self-care (01) ==
PROVIDERS: PCP Physician Assistant; Visit Provider Orthopaedic Surgery
DX: M25.551 Pain in right hip (principal)
CPT/HCPCS: 99212

== ENCOUNTER → 2023-07-02 11:29 | Outpatient (BNVA) | payer MEDICARE, OTHER, SELFPAY | PROVIDERS: PCP Physician Assistant; Visit Provider Orthopaedic Surgery | DX: M25.551 Pain in right hip (principal) | CPT/HCPCS: 99212 ==

== ENCOUNTER → 2023-07-29 12:45 | Outpatient (BNV) | payer MEDICARE, OTHER, SELFPAY | PROVIDERS: PCP Physician Assistant; Visit Provider Radiology Diagnostic Radiology | DX: Z12.31 Encounter for screening mammogram for malignant neoplasm of breast (principal) | CPT/HCPCS: 77063; 77067 ==

== ENCOUNTER 2023-07-29 12:52 | Outpatient (REF) | payer MEDICARE, OTHER, SELFPAY | END 2023-07-29 12:53 | disposition home or self-care (01) | LOC: HO.MAMMO 12:52 | PROVIDERS: PCP Physician Assistant; Visit Provider Physician Assistant | DX: Z12.31 Encounter for screening mammogram for malignant neoplasm of breast (principal) | CPT/HCPCS: 77063; 77067 ==

== ENCOUNTER 2024-01-14 20:00 | Emergency (ER) | payer MEDICARE, OTHER, SELFPAY ==
[2024-01-14 20:03] VITALS: BP 151/97; PULSE 52; RESP 16; TEMP 36.6; O2SAT 96; BMI 25.8
--- NOTE | 2024-01-14 23:32 | ED_ITS ---
HPI - Skin/Abscess/Foreign Bdy General Chief complaint: Skin/Abscess/Foreign Body Stated complaint: tick stuck in neck Time Seen by Provider: 01/14/24 23:05 Source: patient Mode of arrival: ambulatory Limitations: no limitations History of Present Illness HPI narrative: 68-year-old female who presents emergency department for imbedded tick in her left neck. She states she went for a hike yesterday. She noted pain in her left neck and then size small tick embedded in her neck. She states she tried to remove it at home but was unsuccessful. Related Data Home Medications ?Medication ?Instructions ?Recorded ?Confirmed cholecalciferol (vitamin D3) 10 10 mcg PO DAILY 04/17/21 07/02/23 mcg (400 unit) capsule omega-3 fatty acids 1,000 mg 1,000 mg PO DAILY 04/17/21 07/02/23 capsule (Fish Oil Concentrate) turmeric 400 mg capsule mg PO 04/17/21 07/02/23 alendronate 70 mg tablet 70 mg PO QWEEK 01/30/22 07/02/23 calcium carbonate 500 mg calcium 500 mg PO DAILY 12/30/22 07/02/23 (1,250 mg) chewable tablet (Calcium 500) cvjavukcini-duopxiugvlc-nfjdwn 500 tab PO 12/30/22 07/02/23 mg-400 mg-80 mg tablet vitamin B complex 1 tab PO DAILY 12/30/22 07/02/23 Previous Rx's ?Medication ?Instructions ?Recorded estradiol 0.01% (0.1 mg/gram) 1 g vaginal 2XW PRN atrophy #42.5 12/30/22 vaginal cream (Estrace) grams escitalopram oxalate 20 mg tablet 20 mg PO DAILY 90 days #90 tabs 09/25/23 buspirone 30 mg tablet 75 mg (2.5 x 30 mg) PO BEDTIME 11/04/23 #225 tabs Allergies Allergy/AdvReac Type Severity Reaction Status Date / Time No Known Allergies Allergy Verified 01/14/24 20:05 [No Known Allergies*] Review of Systems Review of Systems: Yes all other systems are reviewed and are negative PMFSH Past Medical History Medical History Hemochromatosis No known health problems Osteoporosis Surgical History H/O colonoscopy History of esophagogastroduodenoscopy (EGD) Family History Family History Other Mental health disorder Social History Social History Household Members Other:: partner Housing: House Alcohol intake: current Alcohol intake frequency: a few times a week Alcohol type: beer Patient Tobacco Use Status: Former Tobacco user Cigarettes Per Day: 20 Years Smoked: 15 e-Cigarette/Vaping Use: Never Used Advance Directives: Yes Advance Directives on File: Yes Advance Directives Date on File: 10/08/21 service: No Current occupational status: retired Cognitive needs: No Hearing needs: No Vision needs: Yes (Glasses) Physical Exam Vital Signs: Vital Signs: Last Vital Signs Temp 97.9 F 01/14/24 20:03 Pulse 52 01/14/24 20:03 Resp 16 01/14/24 20:03 BP 151/97 H 01/14/24 20:03 Pulse Ox 96 01/14/24 20:03 O2 Del Method Room Air 01/14/24 20:03 BMI result Body Mass Index 25.8 Vital signs revealed an elevated blood pressure of 151/97 Exam: Skin: Patient has a small imbedded tick in her left neck, no surrounding erythema Medical Decision Making Medical Decision Making MDM Narrative: 68-year-old female who presents emergency department for evaluation of an imbedded tick in her left neck, tick his probably been embedded for proximally 24 hours since the patient went for a hike yesterday. Differential diagnosis: ?Includes but is not limited to deer tick, dog tick, cellulitis Patient was initially treated with the following: Doxycycline 200 mg orally prop hylactically for Lyme disease Course: The take was successfully removed intact by me. Patient was given doxycycline 200 mg prophylactically for Lyme disease Bacitracin was applied to her wound. She was given printed and verbal instructions discharged home Procedures Procedure Narrative Procedure Narrative: Left neck imbedded tick removal procedure Using forceps I was able to grasp the tick in using a metal tick spoon with gentle pressure and rotation was able to extract the tick intact. The patient tolerated the procedure well Discharge Plan Discharge Clinical Impression: Tick bite Qualifiers: Encounter type: initial encounter Site of tick bite: throat Qualified Code(s): S10.16XA - Insect bite (nonvenomous) of throat, initial encounter Patient Disposition: Home, Self-Care Instructions: Tick Bite (ED) Additional Instructions: You had a very small tick embedded in her neck and I do not think this is a deer tick so I think that your low risk for Lyme disease. I did give you doxycycline 200 mg orally. This 1 time dose reduces the risk of getting Lyme disease from a female deer tick. Apply bacitracin twice a day to the left neck wound for 1 week, watch for signs of infection which would include redness, swelling, drainage of pus, red streaks going away from the wound, increased pain. Over the next 2-6 weeks if you develope a flu-like illness with symptoms such as fever, chills, muscle aches, joint pains, rash then you should get treated for Lyme disease. Follow-up with your doctor in 2 days. Please return to the emergency department if your symptoms get worse or if you develop any symptoms that are concerning to you. Prescriptions: No Action escitalopram oxalate 20 mg tablet 20 mg PO DAILY 90 Days Qty: 90 2RF buspirone 30 mg tablet 75 mg PO BEDTIME Qty: 225 3RF alendronate 70 mg tablet 70 mg PO QWEEK omega-3 fatty acids [Fish Oil Concentrate] 1,000 mg capsule 1,000 mg PO DAILY turmeric 400 mg capsule PO cholecalciferol (vitamin D3) 10 mcg (400 unit) capsule 10 mcg PO DAILY fmgbxdenrac-cctmhzmexsn-vakxlj 500-400-80 mg tablet PO calcium carbonate [Calcium 500] 500 mg calcium (1,250 mg) tablet,chewable 500 mg PO DAILY vitamin B complex Tablet 1 tab PO DAILY estradiol [Estrace] 0.01 % (0.1 mg/gram) cream 1 g vaginal 2XW PRN (Reason: atrophy) Qty: 42.5 3RF Rx Instructions: use twice a week at bedtime Print Language: Belarusian
[2024-01-14 23:49] VITALS: BP 122/74; PULSE 65; RESP 16; TEMP 36.3; O2SAT 97
[2024-01-15] MEDS: Bacitracin Oint 0.9 GM PACKET 1 APPL TOPICAL (00:03)
[2024-01-15] MEDS: Doxycycline Monohydrate 100 MG CAPSULE 200 MG PO (00:03)
--- NOTE | 2024-01-15 00:05 | PC.NURSE ---
This RN is not the primarily nurse, medicated upon discharge, reviewed discharge instructions. pt verbalized understanding, no sign of distress
[2024-01-15 00:07] VITALS: BP 122/74; PULSE 65; RESP 16; TEMP 36.3; O2SAT 97
== END 2024-01-15 00:08 | disposition home or self-care (01) ==
PROVIDERS: Emergency Provider Emergency Medicine Emergency Medical Services; PCP Physician Assistant
DX: S10.16XA Insect bite (nonvenomous) of throat, initial encounter (principal); X58.XXXA Exposure to other specified factors, initial encounter; Y93.9 Activity, unspecified; Y92.9 Unspecified place or not applicable; Y99.8 Other external cause status
CPT/HCPCS: 99283

== ENCOUNTER 2024-01-15 12:56 | Outpatient (AMB) | payer MEDICARE, OTHER, SELFPAY ==
--- NOTE | 2024-01-15 12:56 | MHC.OFFVIS ---
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 She is doing well with no concerns. She has a Naturopathetic who Rx her estrogen and progesterone, unclear of the dosages, used for transitioning with hot flashes, weight gain, mood changes. She requests refill for her Valtrex due to her sporadic episodes of lesions, and would like to have enough to take daily at times. History of large uterine fibroids. Menopausal x2 years. Attempting to eat a healthy diet with calcium and vitamin D and stays active with exercise. Currently sexually active. Last pap smear; 2018. Last mammogram; 2022. Colonoscopy is UTD. Denies any family history of breast, ovarian or colon cancer. [facility] Medical History Osteoporosis Hemochromatosis No known health problems Surgical History (Updated 01/15/24 @ 13:10 by KAYLA Stringer) History of bladder suspension procedure History of esophagogastroduodenoscopy (EGD) H/O colonoscopy Family History Other Mental health disorder Social History Household Members Other:: partner Housing: House Alcohol intake: current Alcohol intake frequency: a few times a week Alcohol type: beer Patient Tobacco Use Status: Former Tobacco user Cigarettes Per Day: 20 Years Smoked: 15 e-Cigarette/Vaping Use: Never Used Advance Directives Date on File: 10/08/21 service: No Current occupational status: retired Cognitive needs: No Hearing needs: No Vision needs: Yes (Glasses) Female Reproductive History Menstrual Total pregnancies: 3 Premature: 3 Number of Living Children: 3 Date of last pap smear: 05/07/19 (neg pap and hpv) Date of Mammogram: 07/29/23 (Birad 1) Review of Systems Const All systems reviewed & are unremarkable except as noted in HPI and below Reports as per HPI Eyes Reports no additional complaints ENT Reports no additional complaints Card Reports no additional complaints Resp Reports no additional complaints GI Reports as per HPI and Reports no additional complaints Reports as per HPI Musc Reports no additional complaints Skin/Breast Reports as per HPI Neuro Reports no additional complaints Psych Reports no additional complaints Endo Reports no additional complaints Marko/Lymph Reports no additional complaints Aller/Immun Reports no additional complaints Physical Exam Vital Signs: Last Vital Signs BP 104/66 01/15/24 13:00 BMI result Body Mass Index 25.0 Const General: cooperative, healthy appearing, no acute distress, well developed and alert Orientation/consciousness: patient oriented x3 HEENT Head: Yes normal to inspection Eyes General: appearance normal, both eyes and all related structures Neck Neck: Yes normal visual inspection Thyroid: Thyroid normal Chest Chest palpation & inspection: normal inspection of the chest and other (no puckering, dimpling, peau de orange, retraction, discharge, masses) Breast/axilla inspection: normal inspection of the breasts Breast/axilla palpation: normal palpation of the breasts Resp Effort & Inspection: normal respiratory effort GI Inspection: Yes normal to inspection Palpation (GI): Soft to palpation Rectal Exam - Female: deferred General: Yes bladder normal to palpation External Female Exam: normal external appearance and normal appearance of the urethra Speculum Exam - Vagina: normal appearance of the vagina, normal palpation and normal vaginal discharge Speculum Exam - Cervix: normal appearance of the cervix and normal palpation Bimanual exam- vagina & uterus: normal bimanual exam, normal palpation, bladder normal to palpation, normal palpation, non-tender and enlarged Bimanual Exam- Adnexa, other: no masses Skin General skin exam: no rashes or lesions noted Rashes: no rashes Neuro General: patient oriented x3 Cognition (Neuro): normal cognition Extrem General: Yes normal to inspection Psych Attitude: cooperative Thought process: Normal thought process present Assessment & Plan Assessment & Plan (1) Encounter for well woman exam with routine gynecological exam: Code(s): Z01.419 - Encounter for gynecological examination (general) (routine) without abnormal findings Plan Discussed: Current recommendations for pap smears per ASCCP guidelines. Breast awareness, periodic self breast exams and yearly mammogram. Maintain a healthy lifestyle, well balanced diet including Calcium 1,200 mg and Vitamin D 800 IU daily, and routine exercise. Patient to send in via portal -dosages of the estrogen and progesterone. Fibroids: Plan ultrasound to check size of fibroids for stability. Counseled re: Leiomyoma: common pelvic neoplasm. Differential diagnosis-may include leiomyosarcoma which is a rare uterine sarcoma 3-7/100,000, difficult to distinguish from fibroids on ultrasound from uterine sarcoma's. Report any PMB, pelvic pressure, bloating, or pain. Sign up for the patient portal if not already enrolled. Follow-up ultrasound findings okay for tele visit due to patient living in [place]. Patient verbalizes understanding and agrees to the plan of care. She was given opportunity to ask questions and all questions were answered to the best of my ability. Return to the office 1 year. This note is constructed using voice recognition software. While every effort has been made to ensure accuracy, senior medical transcriptionist errors may have been included. RTO in 1 year for annual china decorator exam. Medications: Refilled estradiol 0.01%(0.1mg/gram) (Estrace) use twice a week at bedtime 1 g vaginal 2XW PRN 42.5 grams 3RF atrophy
[2024-01-15 13:00] VITALS: BP 104/66; BMI 25.0
--- NOTE | 2024-01-16 10:33 | MHC.OFFVIS ---
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 She is doing well with no concerns. Attempting to eat a healthy diet with calcium and vitamin D and stays active with exercise. Currently sexually active. Uses Estrace and needs a refill. Denies any risks to medication use. Last pap smear; 2018. Last mammogram; 2022. Cologard method utilized. Denies any family history of breast, ovarian or colon cancer. [facility] Medical History (Updated 01/20/24 @ 07:51 by Michele Pal PA-C) COVID-19 Osteoporosis Hemochromatosis No known health problems Surgical History History of bladder suspension procedure History of esophagogastroduodenoscopy (EGD) H/O colonoscopy Family History Other Mental health disorder Social History (Updated 01/19/24 @ 15:29 by Michele Pal PA-C) Household Members Other:: partner Housing: House Alcohol intake: current Alcohol intake frequency: 0-2 drinks per day Alcohol type: beer Patient Tobacco Use Status: Former Tobacco user Quit Date: 2004 Cigarettes Per Day: 20 Years Smoked: 15 e-Cigarette/Vaping Use: Never Used Advance Directives Date on File: 10/08/21 service: No Current occupational status: retired Cognitive needs: No Hearing needs: No Vision needs: Yes (Glasses) Female Reproductive History Menstrual Total pregnancies: 3 Full term: 3 Number of Living Children: 3 Date of last pap smear: 05/07/19 (neg pap and hpv) Date of Mammogram: 07/29/23 (Birad 1) Review of Systems Const All systems reviewed & are unremarkable except as noted in HPI and below Reports as per HPI Eyes Reports no additional complaints ENT Reports no additional complaints Card Reports no additional complaints Resp Reports no additional complaints GI Reports as per HPI and Reports no additional complaints Reports as per HPI Musc Reports no additional complaints Skin/Breast Reports as per HPI Neuro Reports no additional complaints Psych Reports no additional complaints Endo Reports no additional complaints Marko/Lymph Reports no additional complaints Aller/Immun Reports no additional complaints Physical Exam Vital Signs: Last Vital Signs BP 104/66 01/15/24 13:00 BMI result Body Mass Index 25.0 Const General: cooperative, healthy appearing, no acute distress, well developed and alert Orientation/consciousness: patient oriented x3 HEENT Head: Yes normal to inspection Eyes General: appearance normal, both eyes and all related structures Neck Neck: Yes normal visual inspection Thyroid: Thyroid normal Chest Chest palpation & inspection: normal inspection of the chest and other (no puckering, dimpling, peau de orange, retraction, discharge, masses) Breast/axilla inspection: normal inspection of the breasts Breast/axilla palpation: normal palpation of the breasts Resp Effort & Inspection: normal respiratory effort GI Inspection: Yes normal to inspection Palpation (GI): Soft to palpation Rectal Exam - Female: deferred Other: Age-related changes General: Yes bladder normal to palpation External Female Exam: normal external appearance and normal appearance of the urethra Speculum Exam - Vagina: normal appearance of the vagina, normal palpation, normal vaginal discharge and vagina atrophic Speculum Exam - Cervix: normal appearance of the cervix and normal palpation Bimanual exam- vagina & uterus: normal bimanual exam, normal palpation, uterine size normal, bladder normal to palpation, normal palpation and non-tender Bimanual Exam- Adnexa, other: no masses Skin General skin exam: no rashes or lesions noted Rashes: no rashes Neuro General: patient oriented x3 Cognition (Neuro): normal cognition Extrem General: Yes normal to inspection Psych Attitude: cooperative Thought process: Normal thought process present Assessment & Plan Assessment & Plan (1) Encounter for well woman exam with routine gynecological exam: Code(s): Z01.419 - Encounter for gynecological examination (general) (routine) without abnormal findings Plan Discussed: Current recommendations for pap smears per ASCCP guidelines. Breast awareness, periodic self breast exams and yearly mammogram. Maintain a healthy lifestyle, well balanced diet including Calcium 1,200 mg and Vitamin D 600 IU daily, and routine exercise. Contact the office with any postmenopausal bleeding. Continue use of Estrace as directed, advised contraindications if any breast cancer, continue with yearly mammograms and report any unusual findings with breast. Patient verbalizes understanding and agrees to the plan of care. She was given opportunity to ask questions and all questions were answered to the best of my ability. 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 This note is constructed using voice recognition software. While every effort has been made to ensure accuracy, cable assembler errors may have been included. Medications: Refilled estradiol 0.01%(0.1mg/gram) (Estrace) use twice a week at bedtime 1 g vaginal 2XW PRN 42.5 grams 3RF atrophy
[2024-01-16 10:34] VITALS: BMI 25.0
== END 2024-01-15 13:55 | disposition home or self-care (01) ==
PROVIDERS: PCP Physician Assistant; Visit Provider Advanced Practice Midwife
DX: Z01.419 Encounter for gynecological examination (general) (routine) without abnormal findings (principal)
CPT/HCPCS: G0101

== ENCOUNTER → 2024-01-15 12:56 | Outpatient (BNVA) | payer MEDICARE, OTHER, SELFPAY | PROVIDERS: PCP Physician Assistant; Visit Provider Advanced Practice Midwife | DX: Z01.419 Encounter for gynecological examination (general) (routine) without abnormal findings (principal); M81.0 Age-related osteoporosis without current pathological fracture; Z78.0 Asymptomatic menopausal state | CPT/HCPCS: G0101 ==

== ENCOUNTER 2024-01-19 14:54 | Outpatient (AMB) | payer MEDICARE, OTHER, SELFPAY ==
--- NOTE | 2024-01-19 15:08 | MHC.PC.OV ---
Vital Signs 01/19/24 15:09 Height 5 ft 2.4 in Weight 141 lb 2 oz BMI 25.5 BP 118/64 Blood Pressure Location Lt brachial Position Sitting Pulse 56 Pulse Source Pulse Oximeter Pulse Oximetry (%) 98 Oxygen Delivery Method Room Air Intake Visit Reasons: PE Intake Note: Patient is here today for a physical. 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 Accompanied by: Self / Same As Patient Allergies No Known Allergies [No Known Allergies*] Allergy (Verified 01/19/24 15:17) Medication List - Last Reconciled 01/19/24 by Michele Pal PA-C alendronate 70 mg PO QWEEK buspirone 75 mg (2.5 x 30 mg) PO BEDTIME calcium carbonate (Calcium 500) 500 mg PO DAILY cholecalciferol (vitamin D3) 10 mcg PO DAILY escitalopram oxalate 20 mg PO DAILY 90 days estradiol 0.01%(0.1mg/gram) (Estrace) 1 g vaginal 2XW PRN omega-3 fatty acids (Fish Oil Concentrate) 1,000 mg PO DAILY turmeric mg PO vitamin B complex 1 tab PO DAILY Tobacco use date assessed: 01/19/24 HPI PE HPI Details Patient is a 68-year-old female here today for an annual physical. Patient has a past medical history significant for osteoporosis, anxiety and depression, hemochromatosis. Concern--> have noted a low heart rate today in office. On auscultation her heart rate does seem fairly low. She is fairly asymptomatic without any presyncopal episodes or acute dizziness. She does report feeling somewhat fatigued though attributes this to age. PLAN: Will send for EKG to [facility] for AV heart block. Hip osteoarthritis: Patient continues in manual physical therapy and has been doing deep myofascial massage which is very beneficial. She has noted her ability to walk further. .. Osteoporosis:? Followed by endocrinology continues on once weekly alendronate .. Anxiety and depression:? Has been stable over the last several years.? Is followed by a psychiatrist who manages her mental health medications. .. Hemochromatosis: Patient followed by head batcher ( Dr Phan) and gets therapeutic phlebotomies annually .. MAmmo: Done June 2023- BIRADS- 1 .. 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 Colonoscopy: She follows a GI specialist, she gets Cologuard every 3 years. Did have colonoscopy in 2020 .. Vaccines: Up-to-date with COVID, tetanus, shingles, up-to-date with pneumonia vaccine [facility] Medical History (Updated 01/20/24 @ 07:51 by Michele Pal PA-C) COVID-19 Osteoporosis Hemochromatosis No known health problems Surgical History History of bladder suspension procedure History of esophagogastroduodenoscopy (EGD) H/O colonoscopy Family History Other Mental health disorder Social History (Updated 01/19/24 @ 15:29 by Michele Pal PA-C) Household Members Other:: partner Housing: House Alcohol intake: current Alcohol intake frequency: 0-2 drinks per day Alcohol type: beer Patient Tobacco Use Status: Former Tobacco user Quit Date: 2004 Cigarettes Per Day: 20 Years Smoked: 15 e-Cigarette/Vaping Use: Never Used Advance Directives Date on File: 10/08/21 service: No Current occupational status: retired Cognitive needs: No Hearing needs: No Vision needs: Yes (Glasses) Questionnaire PHQ-9 Over the last 2 weeks, how often have you been bothered by any of the following problems? 1. Little interest or pleasure in doing things: not at all 2. Feeling down, depressed, or hopeless: not at all 3. Trouble falling or staying asleep, or sleeping too much: not at all 4. Feeling tired or having little energy: not at all 5. Poor appetite or overeating: not at all 6. Feeling bad about yourself - or that you are a failure or have let yourself or your family down: not at all 7. Trouble concentrating on things, such as reading the newspaper or watching television: not at all 8. Moving or speaking so slowly that other people could have noticed. Or the opposite - being so fidgety or restless that you have been moving around a lot more than usual: not at all 9. Thoughts that you would be better off or of hurting yourself in some way: not at all Total score: 0 Depression Screening Interpretation: Negative Depression Screening Done: Yes 02860 - PHQ-9 Billing: Yes Source: Developed by Drs. Brodie Morales, Sepideh Tristan, Joseph Mcdonald and colleagues, with an educational charito from [employer]. Thrive Questionnaire Date Thrive assessed: 01/19/24 I am a: Patient What is your living situation today?: I have a steady place to live Within the past 12 months, did the food you bought not last and you didn't have the money to get more?: Never true Within the past 12 months, did you worry whether your food would run out before you got money to buy more?: Never true Do you have trouble paying for medicines?: No Do you have trouble getting transportation to medical appointments?: No Do you have trouble paying your heating and electricity bill?: No Do you have trouble taking care of your child, family member or friend?: No Do you have trouble with day-to-day activities such as bathing, preparing meals, shopping, managing finances, etc.?: No Are you currently unemployed and looking for a job?: No Are you interested in more education?: No Please select the resources that you would like help with: None Currently or been in a relationship where the following occur: no concerns reported THRIVE Score: 0 AUDIT C Alcohol Use Questionnaire (AUDIT-C) 1. How often do you have a drink containing alcohol?: 2-3 times a week 2. How many drinks containing alcohol do you have on a typical day when you are drinking?: 1 or 2 3. How often do you have six or more drinks on one occasion?: Never Total Score: 3 Score Reviewed/Action Taken: No JOSE-7 AMB Questionnaire JOSE-7 Date JOSE - 7 assessed: 01/19/24 Feeling nervous, anxious, or on edge: 0 = Not at all Not being able to stop or control worryin = Not at all Worrying too much about different things: 0 = Not at all Trouble relaxin = Not at all Being so restless that it is hard to sit still: 0 = Not at all Becoming easily annoyed or irritable: 0 = Not at all Feeling afraid as if something awful might happen: 0 = Not at all Total JOSE-7 score (0-4 normal; 5-9 mild; 10-14 moderate; 15-21 severe): 0 Source: Developed by Sepideh Rutledge.W. Kun, Joseph Mcdonald and colleagues, with an educational charito from [employer]. JOSE-7 Assessment Billing JOSE-7 Assessment Tool: JOSE-7 Assessment 75566 Review of Systems Const Denies body aches, Denies chills, Denies excessive sweating, Denies fatigue, Denies fever(s) and Denies headache(s) Eyes Denies blurry vision ENT Denies dysphagia, Denies vertigo, Denies dizziness, Denies headache(s), Denies hearing loss and Denies tinnitus Card Denies chest pain, Denies chest pain with activity, Denies syncope, Denies irregular heart rhythm and Denies dyspnea Resp Denies chest congestion, Denies cough, Denies hemoptysis, Denies dyspnea and Denies wheezing GI Denies abdominal pain, Denies melena, Denies hematochezia, Denies coffee ground emesis, Denies dysphagia, Denies diarrhea, Denies nausea and Denies vomiting Denies urinary frequency, Denies dysuria, Denies urinary hesitancy and Denies urinary urgency Musc Denies arthralgias, Denies limited range of motion, Denies muscle cramps and Denies muscle weakness Skin/Breast Denies rash and Denies skin ulcer Neuro Denies Abnormal speech present, Denies confusion, Denies vertigo, Denies dizziness, Denies syncope, Denies headache(s), Denies memory loss and Denies seizure-like activity Psych Denies anxiety, Denies confusion, Denies depression, Denies memory loss, Denies panic attacks and Denies paranoia Endo Denies excessive sweating, Denies fatigue, Denies flushing, Denies polydipsia and Denies polyuria Aller/Immun Denies wheezing Physical exam (Primary Care) Vital Signs: Last Vital Signs Pulse 56 01/19/24 15:09 BP 118/64 01/19/24 15:09 Pulse Ox 98 01/19/24 15:09 Oxygen Delivery Method Room Air 01/19/24 15:09 BMI result Body Mass Index 25.5 Tobacco/Smoking Status: Tobacco use Status Tobacco use date assessed 01/19/24 01/19/24 15:16 Patient Tobacco Use Status Former Tobacco user 01/19/24 15:29 e-Cigarette/Vaping Use Never Used 01/19/24 15:29 PHQ-9: PHQ-9 Score PHQ-9: Total score 0 01/19/24 15:18 Depression Screening Interpretation: Negative Thrive Assessment: Date of Thrive Assessment Date Thrive assessed 01/19/24 01/19/24 15:16 Currently or been in a relationship where the following occur: no concerns reported Const General: cooperative, comfortable, no acute distress, alert and awake; No confusion Orientation/consciousness: oriented to person, oriented to place, patient oriented x3 and No confusion HENMT Head: Yes normocephalic Ears: external ears normal and TM's normal bilaterally Face and sinus: No sinus tenderness Mouth: Normal oral and palatal mucosa present and tongue normal Teeth and gingiva: dentition normal and gingiva normal Throat: Yes posterior oropharynx normal, Yes tonsils normal and Yes uvula midline Eyes Conjunctivae: conjunctivae normal Sclerae: sclerae normal Pupils: Equal, round and reactive pupils present EOM: EOMs intact bilaterally Direct Ophthalmoscopy: No no photophobia Neck Neck: Yes no lymphadenopathy, No tender and Yes no JVD Thyroid: Thyroid normal Carotids: no bruits Chest Chest palpation & inspection: no tenderness Resp Effort & Inspection: normal respiratory effort, no audible wheezes, not labored and no stridor Auscultation: no crackles, no rales, no rhonchi and no wheezes Cardio Jugular venous distension: no JVD Rate: regular rate, not bradycardic and not tachycardic Rhythm: regular rhythm Bruits: no carotid bruits Peripheral pulses: Peripheral pulses 2+ throughout GI Inspection: Yes normal to inspection, No abdominal wall ecchymosis and No visible herniation Palpation (GI): Soft to palpation, nontender, no guarding, not rigid and No hepatosplenomegaly present Auscultation: normoactive bowel sounds General: Yes no CVA tenderness Back/Spine/Pelvis Back: no CVA tenderness and No back tenderness Cervical Spine: cervical ROM normal Thoracic/Lumbar Spine: thoracic and lumbar spine normal to inspection, straight leg raise negative bilaterally, No thoraco-lumbar ROM limited and No lumbar spinal tenderness Skin Lesions: no lesions Rashes: no rashes Wounds: no wounds Neuro General: oriented to person, oriented to place, patient oriented x3, CN's II-XI intact bilaterally and No confusion Cranial nerves: Yes Equal, round and reactive pupils present and Yes Normal accommodation reflex present Cognition (Neuro): normal cognition Speech: No Abnormal speech present Gait exam (Neuro): Normal gait present Motor exam (neuro): 5/5 motor strength present throughout Extrem Right upper extremity: full ROM; no cyanosis Left upper extremity: full ROM; no cyanosis Right lower extremity: no edema Left lower extremity: no edema Psych Appearance: grossly normal Mental Status: mental status grossly normal Affect: normal affect Attitude: cooperative Thought process: Normal thought process present Assessment and Plan Assessment & Plan (1) Annual physical exam: Code(s): Z00.00 - Encounter for general adult medical examination without abnormal findings (2) Anxiety and depression: Code(s): F41.9 - Anxiety disorder, unspecified; F32.A - Depression, unspecified Plan: Patient's PHQ-9 and jose 7 score 0, she does have a history of anxiety and depression.. She reports her anxiety depression has been fairly well controlled with current dose of BuSpar and Lexapro. (3) Macrocytosis: Code(s): D75.89 - Other specified diseases of blood and blood-forming organs Plan: Patient does have a macrocytosis related to her hemochromatosis. She does report drinking 4-5 heavy alcohol drinks per week. (4) Hemochromatosis: Code(s): E83.119 - Hemochromatosis, unspecified Qualifiers: Hemochromatosis type: hereditary Qualified Code(s): E83.110 - Hereditary hemochromatosis Plan: Followed by GI specialty. Most recent ferritin stable, she does get therapeutic phlebotomies annually. (5) Bradycardia: Code(s): R00.1 - Bradycardia, unspecified Plan: Have noted bradycardia on auscultation on physical exam today. Patient asymptomatic. Will send for EKG to evaluate for AV block. (6) Right hip pain: Code(s): M25.551 - Pain in right hip Plan: Her hip pains have been improving with physical therapy. She is doing some specialized manual therapy which has been very helpful thus far. Orders: Orders Comprehensive [place]. Panel Fast 01/19/24 Z13.1 - Encounter for screening for diabetes mellitus ECG 12 lead EKG 01/19/24 R00.1 - Bradycardia, unspecified Complete Blood Count no Diff 01/19/24 D75.89 - Other specified diseases of blood and blood-forming organs IRON PROFILE 01/19/24 D50.9 - Iron deficiency anemia, unspecified, E83.110 - Hereditary hemochromatosis Patient Instructions: Goals: Continue to try to reduce hip pain, reduce the amount of alcohol intake weekly Barriers: Hip osteoarthritis and minor labral tears, Age Coding Level of Care Code Est Pt Prev Care >65y(06026) Diagnoses Annual physical exam Z00.00 Anxiety and depression F41.9; F32.A Macrocytosis D75.89 Hereditary hemochromatosis E83.110 Hemochromatosis type: hereditary Bradycardia R00.1 Right hip pain M25.551 Additional Codes JOSE-7 Assessment Billing - JOSE-7 Assessment Tool: JOSE-7 Assessment [id number] ([id number])
[2024-01-19 15:09] VITALS: BP 118/64; PULSE 56; O2SAT 98; BMI 25.5
== END 2024-01-19 15:47 | disposition home or self-care (01) ==
LOC: HO.HMGH 14:55
PROVIDERS: PCP Physician Assistant; Visit Provider Physician Assistant
DX: Z00.00 Encounter for general adult medical examination without abnormal findings (principal); F41.9 Anxiety disorder, unspecified; E83.110 Hereditary hemochromatosis; F32.A Depression, unspecified; D75.89 Other specified diseases of blood and blood-forming organs; R00.1 Bradycardia, unspecified; M25.551 Pain in right hip
CPT/HCPCS: 99397

== ENCOUNTER 2024-01-23 11:03 | Outpatient (REF) | payer MEDICARE, OTHER, SELFPAY ==
--- NOTE | 2024-01-23 11:07 | ECG_ITS ---
Test Reason : BRADYCARDIA Blood Pressure : / mmHG Vent. Rate : 054 BPM Atrial Rate : 054 BPM P-R Int : 152 ms QRS Dur : 084 ms QT Int : 430 ms P-R-T Axes : 070 040 067 degrees QTc Int : 407 ms Sinus bradycardia with occasional Premature ventricular complexes Otherwise normal ECG When compared with ECG of 11-NOV-2020 17:24, Premature ventricular complexes are now Present Referred By: Michele Pal Electronically Signed By:MARKY WEBB MD
[2024-01-23 11:53] LABS: Hematocrit 37.9 % (37.0-47.0); Mean Corpuscular HGB Conc 34.3 g/dl (31.0-35.0); Mean Corpuscular Hemoglobin 34.9 pg (27.0-33.0); Mean Corpuscular Volume 101.9 fL (80.0-98.0); Mean Platelet Volume 9.4 fL (9.4-12.3); Platelet Count 203 X10*3/uL (160-400); Red Blood Count 3.72 X10*6/uL (4.20-5.50); Red Cell Distribution Width 11.9 % (11.0-16.0); White Blood Count 4.5 X10*3/uL (4.8-10.8)
[2024-01-23 12:36] LABS: Alanine Aminotransferase 12 U/L (0-31); Albumin Level 4.1 g/dL (3.5-5.0); Alkaline Phosphatase 45 U/L (39-117); Anion Gap 11 (12-20); Aspartate Amino Transferase 17 U/L (5-31); Bilirubin Total 0.5 mg/dL (0.0-1.0); Blood Urea Nitrogen 12 mg/dL (9-16); Calcium 9.3 mg/dL (8.4-10.2); Carbon Dioxide 26 mmol/L (22-29); Chloride 102 mmol/L (96-108); Estimated Glomerular Filt Rate > 60; Glucose Fasting 88 mg/dL (60-99); Iron 175 mcg/dL (30-160); Percent Iron Saturation 72 % (15-50); Potassium 4.5 mmol/L (3.3-5.1); Sodium 134 mmol/L (135-145); Total Iron Binding Capacity 243 mcg/dL (228-428); Total Protein 6.7 g/dL (6.5-8.0); Unsaturated Iron Binding 68 ug/dL
== END 2024-01-23 11:04 | disposition home or self-care (01) ==
LOC: HO.LAB 11:03
PROVIDERS: PCP Physician Assistant; Visit Provider Physician Assistant
DX: Z13.1 Encounter for screening for diabetes mellitus (principal); D75.89 Other specified diseases of blood and blood-forming organs; R00.1 Bradycardia, unspecified; E83.110 Hereditary hemochromatosis
CPT/HCPCS: 36415; 80053; 83540; 85027; 93005

== ENCOUNTER → 2024-01-23 11:07 | Outpatient (BNV) | payer MEDICARE, OTHER, SELFPAY | PROVIDERS: PCP Physician Assistant; Visit Provider Internal Medicine Cardiovascular Disease | DX: R00.1 Bradycardia, unspecified (principal) | CPT/HCPCS: 93010 ==

== ENCOUNTER → 2024-03-08 11:24 | Outpatient (REF) | payer MEDICARE, OTHER, SELFPAY ==
--- NOTE | 2024-03-08 11:36 | HM_ITS ---
* Total monitoring time 3 days. * Underlying rhythm is sinus with an average rate of 59/Min. Range 47 to 91/Min. About 56% of the time, rate < 60/Min. * Rare supraventricular ectopy. Very brief runs noted. * Rare ventricular ectopy. * No significant pauses or AV blocks. * No patient markers or diary events. MTDD
== END ==
LOC: HO.CARD 11:24
PROVIDERS: PCP Physician Assistant; Visit Provider Physician Assistant
DX: R00.1 Bradycardia, unspecified (principal)
CPT/HCPCS: 93242

== ENCOUNTER → 2024-03-08 11:36 | Outpatient (BNV) | payer MEDICARE, OTHER, SELFPAY | PROVIDERS: PCP Physician Assistant; Visit Provider Internal Medicine | DX: I47.10 Supraventricular tachycardia, unspecified (principal) | CPT/HCPCS: 93244 ==

== ENCOUNTER 2024-05-11 11:27 | Outpatient (AMB) | payer MEDICARE, OTHER, SELFPAY ==
--- NOTE | 2024-05-11 11:34 | MHC.OFFVIS ---
Vital Signs 05/11/24 11:36 Height 5 ft 2.4 in Weight 136 lb 3.931 oz BMI 24.6 BP 118/61 Blood Pressure Location Lt brachial Position Sitting Pulse 64 Intake Visit Reasons: Cologuard 3 years f/u Intake Note: Patient in office today in follow up for repeat cologuard. CC: Patient states that she would like to be tested for Hep C. Denies having any GI concerns. 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 She was having dry mouth and increased her water consumption - she also had a UTI. We review the cologuard results and that we will repeat it in 3 years. She is trying to drink her microbrew beer only q3days r/t all fo this. Her B-12 and folate levels were normal and her liver appears to be fine. She is recovering from a broken foot recently stepping on a metal bar. Her only other complaint are some extremely itchy areas with small pin dot bumps. She has tried using her triamcinolone cream on them without good success I recommended she try [id number] Benadryl cream as they appear allergy driven and may be related to please open bites. As we are working on any active problems at this time I will put her on a 3 year recall list for Cologuard. She is quite happy with this. (2) Macrocytosis: Code(s): D75.89 - Other specified diseases of blood and blood-forming organs (3) Vesicular rash: Comment: Itchy not painful appears like he may be blood bites Code(s): R23.8 - Other skin changes Laboratory Tests 01/23/24 11:32 WBC 4.5 L Hgb 13.0 Hct 37.9 MCV 101.9 H MCH 34.9 H MCHC 34.3 Plt Count 203 Estimated GFR > 60 Total Bilirubin 0.5 AST 17 ALT 12 Alkaline Phosphatase 45 TODAY'S VISIT She continues to like her micro beers, John makes a sweet/dark beer she likes. She has occasional abd bloating but she attributes this to fruits eaten - ex mangos. No alarm sn/sx. Will repeat COloguard. ROV 8 weeks. [facility] Medical History (Updated 05/11/24 @ 14:55 by SHAWANDA Queen) Right hip pain Back pain Acute low back pain Vesicular rash Encounter to establish care Screening for diabetes mellitus (DM) Screening for hypothyroidism Screening for hypercholesterolemia Annual physical exam COVID-19 Osteoporosis Hemochromatosis No known health problems Surgical History History of bladder suspension procedure History of esophagogastroduodenoscopy (EGD) H/O colonoscopy Family History Other Mental health disorder Social History (Updated 01/19/24 @ 15:29 by Michele Pal PA-C) Household Members Other:: partner Housing: House Alcohol intake: current Alcohol intake frequency: 0-2 drinks per day Alcohol type: beer Patient Tobacco Use Status: Former Tobacco user Cigarettes Per Day: 20 Years Smoked: 15 e-Cigarette/Vaping Use: Never Used Advance Directives Date on File: 10/08/21 service: No Current occupational status: retired Cognitive needs: No Hearing needs: No Vision needs: Yes (Glasses) Review of Systems Const Denies fatigue, Denies fever(s), Denies night sweats, Denies poor appetite and Denies weight loss ENT Reports Normal hearing present, Denies dental pain, Denies dysphagia, Denies hearing loss, Denies mouth pain, Denies odynophagia, Denies throat swelling, Denies tongue swelling and Reports other (Dentition adequate) Card Reports no additional complaints Resp Reports no additional complaints GI Details: Denies abdominal pain, Denies melena, Denies bloating, Denies hematochezia, Denies constipation, Denies GI cramping, Denies dysphagia, Denies excessive flatus, Denies early satiety, Denies heartburn, Denies diarrhea, Denies nausea, Denies odynophagia, Denies vomiting and Denies hematemesis Skin/Breast Denies pruritus, Denies lesions, Denies rash and Denies jaundice Neuro Reports Normal hearing present and Denies Abnormal speech present Endo Denies fatigue Aller/Immun Denies throat swelling and Denies tongue swelling Physical Exam Vital Signs: Last Vital Signs Pulse 64 05/11/24 11:36 BP 118/61 05/11/24 11:36 BMI result Body Mass Index 24.6 Const General: cooperative, no acute distress, well developed and well groomed Nutritional Appearance: average body habitus and well nourished Orientation/consciousness: oriented to person, oriented to place and oriented to time Limitations: No language barrier HEENT Head: Yes normocephalic and Yes atraumatic Eyes General: appearance normal, both eyes and all related structures Pupils: Equal, round and reactive pupils present Neck Neck: Yes normal visual inspection and Yes no lymphadenopathy Thyroid: Thyroid normal Resp Effort & Inspection: normal respiratory effort and able to speak in complete sentences Auscultation: clear to auscultation bilaterally Cardio Rate: regular rate Rhythm: regular rhythm Heart sounds: Normal, physiologic split S2 sound present Peripheral pulses: radial pulses present and posterior tibial pulses present GI Inspection: No distended and No Abdominal panniculus present Palpation (GI): Soft to palpation, nontender, no guarding, not rigid and No hepatosplenomegaly present Percussion: Yes normal to percussion Auscultation: normal bowel sounds Rectal Exam - Female: deferred Skin General skin exam: no rashes or lesions noted, turgor normal, skin not dry, no jaundice, No spider nevi and no striae Rashes: no rashes Nails: normal Neuro General: oriented to person, oriented to place and oriented to time Cranial nerves: Yes Equal, round and reactive pupils present and Yes Normal hearing present Speech: No Abnormal speech present Extrem General: Yes normal to inspection, No clubbing, No cyanosis and No edema Psych Appearance: grossly normal and well kempt Mental Status: mental status grossly normal Speech and movement: Normal speech and movement present Affect: normal affect Attitude: cooperative Thought process: Normal thought process present and not confabulating Thought content: Normal thought content present Insight: Good insight present (Psych) Judgement: Good judgement present (Psych) Assessment & Plan Assessment & Plan (1) Colon cancer screening: Comment: NEGATIVE COLOGUARD 05/2021 REPEAT 3 YEARS Code(s): Z12.11 - Encounter for screening for malignant neoplasm of colon Category: Medical Plan She continues to like her micro beers, John makes a sweet/dark beer she likes. She has occasional abd bloating but she attributes this to fruits eaten - ex mangos. No alarm sn/sx. Will repeat COloguard. ROV 8 weeks. Coding Level of Care Code New Pt Level 3 (32225) Diagnoses Colon cancer screening Z12.11
[2024-05-11 11:36] VITALS: BP 118/61; PULSE 64; BMI 24.6
== END 2024-05-11 12:23 | disposition home or self-care (01) ==
PROVIDERS: PCP Physician Assistant; Visit Provider Nurse Practitioner
DX: Z12.11 Encounter for screening for malignant neoplasm of colon (principal)
CPT/HCPCS: 99024

== ENCOUNTER → 2024-05-11 11:27 | Outpatient (BNVA) | payer MEDICARE, OTHER, SELFPAY | PROVIDERS: PCP Physician Assistant; Visit Provider Nurse Practitioner | DX: Z12.11 Encounter for screening for malignant neoplasm of colon (principal) | CPT/HCPCS: 99212 ==

== ENCOUNTER 2024-06-29 13:46 | Outpatient (AMB) | payer MEDICARE, OTHER, SELFPAY ==
--- NOTE | 2024-06-29 13:47 | MHC.PC.OV ---
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 Accompanied by: Self / Same As Patient Allergies No Known Allergies [No Known Allergies*] Allergy (Verified 06/29/24 13:58) Medication List - Last Reconciled 06/29/24 by Michele Pal PA-C alendronate 70 mg PO QWEEK buspirone 75 mg (2.5 x 30 mg) PO BEDTIME calcium carbonate (Calcium 500) 1,000 mg PO DAILY calcium carbonate-vitamin D3 600 mg-12.5 mcg (500 unit) (Calcium 600 with Vitamin D3) caps PO escitalopram oxalate 20 mg PO DAILY 90 days estradiol 0.01%(0.1mg/gram) (Estrace) 1 g vaginal 2XW PRN omega-3 fatty acids (Fish Oil Concentrate) 1,000 mg PO DAILY turmeric mg PO vitamin B complex 1 tab PO DAILY Tobacco use date assessed: 01/19/24 Fall risk assessment: No Falls in past year Last assessed Fall Risk: 06/29/24 Dental Screening Dental Screen Date: 06/29/24 Did you have a dental visit in the last 12 months?: Yes Did you have a dental problem in the last 6 months where you did not have access to dental care?: No Was dental information given to patient?: Patient has dentist HPI Back problems HPI Details Patient is a 68-year-old female here today for problem visit. Over the last 3 days she has been having very bad lower back pain and having difficulty ambulating. She reports she bent down to do a like stretch and felt a very sharp pain in her lower back. She reports she seems to be having frequent muscle spasms in her low back.. He has no radiculopathy down lower extremities and denies any bowel or bladder dysfunction. She has had her back evaluated the 2021 where x-ray showed--> Moderate right L4-L5 facet joint arthropathy. No visible acute fracture, dislocation or lytic process seen. [facility], LAT[facility] Medical History (Updated 06/29/24 @ 13:59 by Michele Pal PA-C) Right hip pain Back pain Acute low back pain Vesicular rash Encounter to establish care Screening for diabetes mellitus (DM) Screening for hypothyroidism Screening for hypercholesterolemia Annual physical exam COVID-19 Osteoporosis Hemochromatosis No known health problems Surgical History History of bladder suspension procedure History of esophagogastroduodenoscopy (EGD) H/O colonoscopy Family History Other Mental health disorder Social History Household Members Other:: partner Housing: House Alcohol intake: current Alcohol intake frequency: 0-2 drinks per day Alcohol type: beer Patient Tobacco Use Status: Former Tobacco user Cigarettes Per Day: 20 Years Smoked: 15 e-Cigarette/Vaping Use: Never Used Second Hand Smoke Exposure: No Advance Directives Date on File: 10/08/21 service: No Current occupational status: retired Cognitive needs: No Hearing needs: No Vision needs: Yes (Glasses) Questionnaire Thrive Questionnaire Date Thrive assessed: 01/19/24 JOSE-7 AMB Questionnaire JOSE-7 Date JOSE - 7 assessed: 01/19/24 Source: Developed by Drs. Brodie Morales, Sepideh Tristan, Joseph Mcdonald and colleagues, with an educational charito from [employer]. Review of Systems Const Denies headache(s) Eyes Denies loss of vision ENT Denies vertigo, Denies dizziness, Denies headache(s) and Denies sore throat Card Denies chest pain, Denies leg edema and Denies lightheadedness Resp Denies cough, Denies hemoptysis and Denies wheezing GI Denies abdominal pain, Denies melena, Denies constipation, Denies diarrhea and Denies vomiting Denies urinary frequency, Denies dysuria and Denies urinary urgency Musc Reports back pain, Denies arthralgias, Denies joint swelling, Denies numbness and Denies tingling Neuro Denies Abnormal speech present, Denies behavioral changes, Denies vertigo, Denies dizziness, Denies headache(s), Denies loss of vision, Denies memory loss, Denies numbness and Denies tingling Psych Denies anxiety, Denies behavioral changes, Denies depression, Denies memory loss and Denies panic attacks Marko/Lymph Denies easy bleeding and Denies easy bruising Aller/Immun Denies wheezing Physical exam (Primary Care) Vital Signs: Last Vital Signs Pulse 59 06/29/24 13:49 BP 132/80 06/29/24 13:49 Pulse Ox 98 06/29/24 13:49 Oxygen Delivery Method Room Air 06/29/24 13:49 BMI result Body Mass Index 25.1 Tobacco/Smoking Status: Tobacco use Status Tobacco use date assessed 01/19/24 06/29/24 13:49 Patient Tobacco Use Status Former Tobacco user 06/29/24 13:49 e-Cigarette/Vaping Use Never Used 06/29/24 13:49 Thrive Assessment: Date of Thrive Assessment Date Thrive assessed 01/19/24 06/29/24 13:49 Const General: healthy appearing, no acute distress, alert and awake Nutritional Appearance: well nourished Orientation/consciousness: oriented to person, oriented to place and oriented to time HENMT Ears: TM's normal bilaterally General nose exam: Normal nasal mucous membranes and turbinates present Eyes Conjunctivae: conjunctivae normal Sclerae: sclerae normal Pupils: Equal, round and reactive pupils present Neck Neck: Yes no lymphadenopathy and Yes no JVD Thyroid: Thyroid normal Carotids: no bruits Resp Effort & Inspection: normal respiratory effort and not tachypneic Auscultation: no crackles, no rales, no rhonchi and no wheezes Cardio Rate: regular rate Rhythm: regular rhythm Heart sounds: no murmurs and normal S1 and S2 GI Palpation (GI): Soft to palpation, nontender, no hepatomegaly and no splenomegaly Auscultation: normal bowel sounds Back/Spine/Pelvis Other: LIMITED RANGE OF MOTION LUMBAR SPINE DUE TO PAIN AND STIFFNESS. AMBULATING WITH AN ANTALGIC GAIT PATIENT WEARING A LUMBAR SUPPORT BRACE Skin General skin exam: no rashes or lesions noted and dry skin Neuro General: oriented to person, oriented to place and oriented to time Cranial nerves: Yes Equal, round and reactive pupils present Speech: No Abnormal speech present Gait exam (Neuro): Normal gait present Motor exam (neuro): no tremor noted Extrem Right upper extremity: full ROM Left upper extremity: full ROM Right lower extremity: full ROM; no edema Left lower extremity: full ROM; no edema Psych Mental Status: mental status grossly normal Speech and movement: Normal speech and movement present Affect: normal affect Attitude: cooperative Thought process: Normal thought process present Office Procedures Flu Questionnaire Does the patient have a severe egg allergy?: No Immunizations Fluarix Triv [id number] (PF) 45 mcg (15 mcg x 3)/0.5 mL IM syringe Performing Provider: Michele Pal PA-C [facility] Documented (not given) by: KAYLA Nino on 06/29/24 14:15 Reason Not Given: Not Given Coding Level of Care Code Est Pt Level 3 (03437) Diagnoses Lumbar sprain, initial encounter S33.5XXA Encounter type: initial encounter Assessment & Plan Assessment & Plan (1) Lumbar back sprain: Code(s): S33.5XXA - Sprain of ligaments of lumbar spine, initial encounter Category: Medical Qualifiers: Encounter type: initial encounter Qualified Code(s): S33.5XXA - Sprain of ligaments of lumbar spine, initial encounter Plan: Patient's signs symptoms most consistent with a lumbar spine muscular sprain. Will likely benefit from muscle relaxers and p.r.n. use of pain medication. She will continue ibuprofen and Tylenol alternating dosing. Advised on light stretches and cool compresses. At this time do not feel it was necessary to get imaging as symptoms seem to be muscular though if symptoms worsen will consider x-ray or MRI. Medications: New tramadol 50 mg PO DAILY 5 days 5 tabs 0RF S33.5XXA - Sprain of ligaments of lumbar spine, initial encounter baclofen 10 mg PO BID 7 days 14 tabs 0RF S33.5XXA - Sprain of ligaments of lumbar spine, initial encounter
[2024-06-29 13:49] VITALS: BP 132/80; PULSE 59; O2SAT 98; BMI 25.1
== END 2024-06-29 14:42 | disposition home or self-care (01) ==
PROVIDERS: PCP Physician Assistant; Visit Provider Physician Assistant
DX: S33.5XXA Sprain of ligaments of lumbar spine, initial encounter (principal); Z23 Encounter for immunization

== ENCOUNTER → 2024-06-29 13:46 | Outpatient (BNVA) | payer MEDICARE, OTHER, SELFPAY | PROVIDERS: PCP Physician Assistant; Visit Provider Physician Assistant | DX: S33.5XXA Sprain of ligaments of lumbar spine, initial encounter (principal) | CPT/HCPCS: 99212 ==

== ENCOUNTER 2024-07-16 10:28 | Outpatient (AMB) | payer MEDICARE, OTHER, SELFPAY ==
[2024-07-16 10:34] VITALS: BP 137/75; PULSE 54; BMI 24.6
--- NOTE | 2024-07-16 10:34 | MHC.OFFVIS ---
Vital Signs 07/16/24 10:34 Height 5 ft 2.4 in Weight 136 lb BMI 24.6 BP 137/75 Blood Pressure Location Rt brachial Position Sitting Pulse 54 Intake Visit Reasons: 8 week follow up Intake Note: Ema returns in follow up of cologuard. CC: Patient reports doing well from GI standpoint. She reports some back and hip pain. 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 She has occasional abd bloating but she attributes this to fruits eaten - ex mangos. No alarm sn/sx. Will repeat COloguard. ROV 8 weeks. TODAY'S VISIT The Cologuard came back negative She continues to like her micro beers, [employer] makes a sweet/dark beer she likes. Her favorite was by abandoned building but they since discontinued it to her chagrin. Return office visit in 3 years for repeat Cologuard PFS Medical History Right hip pain Back pain Acute low back pain Vesicular rash Encounter to establish care Screening for diabetes mellitus (DM) Screening for hypothyroidism Screening for hypercholesterolemia Annual physical exam COVID-19 Osteoporosis Hemochromatosis No known health problems Surgical History History of bladder suspension procedure History of esophagogastroduodenoscopy (EGD) H/O colonoscopy Family History Other Mental health disorder Social History Household Members Other:: partner Housing: House Alcohol intake: current Alcohol intake frequency: 0-2 drinks per day Alcohol type: beer Patient Tobacco Use Status: Former Tobacco user Cigarettes Per Day: 20 Years Smoked: 15 e-Cigarette/Vaping Use: Never Used Second Hand Smoke Exposure: No Advance Directives Date on File: 10/08/21 service: No Current occupational status: retired Cognitive needs: No Hearing needs: No Vision needs: Yes (Glasses) Review of Systems Const Denies fatigue, Denies fever(s), Denies night sweats, Denies poor appetite and Denies weight loss ENT Reports Normal hearing present, Denies dental pain, Denies dysphagia, Denies hearing loss, Denies mouth pain, Denies odynophagia, Denies throat swelling, Denies tongue swelling and Reports other (Dentition adequate) Card Reports no additional complaints Resp Reports no additional complaints GI Details: Denies abdominal pain, Denies melena, Denies bloating, Denies hematochezia, Denies constipation, Denies GI cramping, Denies dysphagia, Denies excessive flatus, Denies early satiety, Denies heartburn, Denies diarrhea, Denies nausea, Denies odynophagia, Denies vomiting and Denies hematemesis Skin/Breast Denies pruritus, Denies lesions, Denies rash and Denies jaundice Neuro Reports Normal hearing present and Denies Abnormal speech present Endo Denies fatigue Aller/Immun Denies throat swelling and Denies tongue swelling Physical Exam Vital Signs: Last Vital Signs Pulse 54 07/16/24 10:34 BP 137/75 07/16/24 10:34 BMI result Body Mass Index 24.6 Const General: cooperative, no acute distress, well developed and well groomed Nutritional Appearance: average body habitus and well nourished Orientation/consciousness: oriented to person, oriented to place and oriented to time Limitations: No language barrier HEENT Head: Yes normocephalic and Yes atraumatic Eyes General: appearance normal, both eyes and all related structures Pupils: Equal, round and reactive pupils present Neck Neck: Yes normal visual inspection Resp Effort & Inspection: normal respiratory effort and able to speak in complete sentences GI Rectal Exam - Female: deferred Skin General skin exam: no rashes or lesions noted, turgor normal, skin not dry, no jaundice, No spider nevi and no striae Rashes: no rashes Nails: normal Neuro General: oriented to person, oriented to place and oriented to time Cranial nerves: Yes Equal, round and reactive pupils present and Yes Normal hearing present Speech: No Abnormal speech present Extrem General: Yes normal to inspection, No clubbing, No cyanosis and No edema Psych Appearance: grossly normal and well kempt Mental Status: mental status grossly normal Speech and movement: Normal speech and movement present Affect: normal affect Attitude: cooperative Thought process: Normal thought process present and not confabulating Thought content: Normal thought content present Insight: Good insight present (Psych) Judgement: Good judgement present (Psych) Assessment & Plan Assessment & Plan (1) Colon cancer screening: Comment: 2023= 2023 negative Cologuard repeat in 3 years; NEGATIVE COLOGUARD 05/2021 REPEAT 3 YEARS Code(s): Z12.11 - Encounter for screening for malignant neoplasm of colon Category: Medical Plan The Cologuard came back negative She continues to like her micro beers, [employer] makes a sweet/dark beer she likes. Her favorite was by abandoned building but they since discontinued it to her chagrin. Return office visit in 3 years for repeat Cologuard Coding Level of Care Code Est Pt Level 3 (41179) Diagnoses Colon cancer screening Z12.11
== END 2024-07-16 11:07 | disposition home or self-care (01) ==
PROVIDERS: PCP Physician Assistant; Visit Provider Nurse Practitioner
DX: Z71.2 Person consulting for explanation of examination or test findings (principal); Z12.11 Encounter for screening for malignant neoplasm of colon
CPT/HCPCS: 99024

== ENCOUNTER → 2024-07-16 10:28 | Outpatient (BNVA) | payer MEDICARE, OTHER, SELFPAY | PROVIDERS: PCP Physician Assistant; Visit Provider Nurse Practitioner | DX: Z12.11 Encounter for screening for malignant neoplasm of colon (principal) | CPT/HCPCS: 99212 ==

== ENCOUNTER 2024-08-03 10:46 | Outpatient (REF) | payer MEDICARE, OTHER, SELFPAY ==
--- NOTE | ~2024-08-03 | MM_ITS ---
EXAMINATION: MM SCREENING DIGITAL BREAST TOMOSYNTHESIS, BILATERAL CLINICAL INFORMATION: Screening. Asymptomatic. COMPARISON: Mammography: Comparison is made with available priors TECHNIQUE: Digital breast mammography with tomosynthesis is performed in both the craniocaudal and mediolateral oblique views along with computer-aided detection (CAD). FINDINGS: There are scattered areas of fibroglandular density (ACR BI-RADS breast composition Category b). There are no significant masses, abnormal calcifications, or other abnormalities. MM/MM tomosynthesis screening BI IMPRESSION: No mammographic evidence of malignancy. ASSESSMENT: BI-RADS BI-RADS 1 - Negative RECOMMENDATION: Routine annual mammography screening. 1 year F/U This examination should not preclude the clinical evaluation of a suspicious palpable abnormality. This patient's information was entered into a reminder system with a target due date for their next mammogram. Electronically signed by: Josefa Elaine DO 08/11/2024 01:16 PM [facility]
== END 2024-08-03 10:47 | disposition home or self-care (01) ==
LOC: HO.MAMMO 10:46
PROVIDERS: PCP Physician Assistant; Visit Provider Physician Assistant
DX: Z12.31 Encounter for screening mammogram for malignant neoplasm of breast (principal)
CPT/HCPCS: 77063; 77067

== ENCOUNTER → 2024-08-03 11:00 | Outpatient (BNV) | payer MEDICARE, OTHER, SELFPAY | PROVIDERS: PCP Physician Assistant; Visit Provider Internal Medicine | DX: Z12.31 Encounter for screening mammogram for malignant neoplasm of breast (principal) | CPT/HCPCS: 77063; 77067 ==

== ENCOUNTER 2024-09-20 15:31 | Outpatient (REF) | payer MEDICARE, OTHER, SELFPAY | END 2024-09-20 15:32 | disposition home or self-care (01) | LOC: HO.HOSX 15:31 | PROVIDERS: Visit Provider Orthopaedic Surgery | DX: Z13.89 Encounter for screening for other disorder (principal) ==

== ENCOUNTER 2024-10-13 10:59 | Outpatient (AMB) | payer MEDICARE, OTHER, SELFPAY ==
--- NOTE | 2024-10-13 11:38 | AM.OFFWIN_ITS ---
Intake Vital Signs 10/13/24 11:41 Weight 142 lb BP 118/72 Blood Pressure Location Rt brachial Position Sitting Pulse 64 Pulse Source Pulse Oximeter Pulse Oximetry (%) 98 Oxygen Delivery Method Room Air Intake Visit Reasons: EP-lymph nodes swollen Intake Note: Patient here for swollen lymph nodes that has been present for about 1 week. Patient Tobacco Use Status: Former Tobacco user Allergies No Known Allergies [No Known Allergies*] Allergy (Verified 10/13/24 11:41) Do you need a note to return to daycare/school/sports/work: No HPI HPI Comments History of Present Illness Details She presents to office with ? swollen lymph nodes Ongoing x 1 week No other cold like symptoms Denies fever or chills No congestion, ST, ear pain No weight loss of fatigue + symptoms similar intermittently Denies cough, CP or SOB PFSH Medical History Right hip pain Back pain Acute low back pain Vesicular rash Encounter to establish care Screening for diabetes mellitus (DM) Screening for hypothyroidism Screening for hypercholesterolemia Annual physical exam COVID-19 Osteoporosis Hemochromatosis No known health problems Surgical History History of bladder suspension procedure History of esophagogastroduodenoscopy (EGD) H/O colonoscopy Family History Other Mental health disorder Social History Household Members Other:: partner Housing: House Alcohol intake: current Alcohol intake frequency: 0-2 drinks per day Alcohol type: beer Patient Tobacco Use Status: Former Tobacco user Cigarettes Per Day: 20 Years Smoked: 15 e-Cigarette/Vaping Use: Never Used Second Hand Smoke Exposure: No Advance Directives Date on File: 10/08/21 service: No Current occupational status: retired Cognitive needs: No Hearing needs: No Vision needs: Yes (Glasses) Review of Systems Const Denies body aches, Denies chills, Denies fatigue, Denies fever(s), Denies frequent falls, Denies headache(s), Denies poor appetite and Denies weight loss Eyes Denies change in vision ENT Denies otalgia, Denies headache(s), Denies sinus pressure and Denies sore throat Card Denies chest pain Resp Denies cough Musc Denies myalgias Skin/Breast Denies rash Neuro Denies frequent falls and Denies headache(s) Endo Denies fatigue Marko/Lymph Reports lymphadenopathy Physical Exam Vital Signs: Last Vital Signs Pulse 64 10/13/24 11:41 BP 118/72 10/13/24 11:41 Pulse Ox 98 10/13/24 11:41 Oxygen Delivery Method Room Air 10/13/24 11:41 General: Non-toxic, NAD. Speaking full sentences. Skin: Warm dry throughout Eye: EOMI Neck: + palpation Bilateral submandibular lymph node enlargement minimal with tenderness to palpation. No other lyphadenopathy to posterior cervicsl chain, anterior cervical chain, tonsillar, submental, infra/supraclavicual HENT: Airway patent. Uvula midline. No pharyngeal erythema or edema. 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 No mass to floor of mouth. No gingival edema, erythema or abscess visualized or palpated. Bilateral canals clear. TM non-erythematous, non-bulging. No TM perforation or hemotympanum noted. Respiratory: CTA bilaterally. No wheezes, rales or rhonchi Cardiac: RRR. No murmur MSK: Full ROM extremities. Neurology: Alert. No aphasia or facial droop. Gait without abnormality Psych: Good mood and affect Assessment & Plan Assessment & Plan (1) Lymphadenopathy: Code(s): R59.1 - Generalized enlarged lymph nodes Plan: Advised pt to monitor Discussed warm compress and motrin prn x 1 week Will call if persistent another 1-1.5 weeks Advised needs follow up with PCP Any CP, SOB etc go to ER Pt expressed verbal understanding and had no additional questions Coding Level of Care Code Est Pt Level 3 (79555) Diagnoses Lymphadenopathy R59.1
[2024-10-13 11:41] VITALS: BP 118/72; PULSE 64; O2SAT 98
== END 2024-10-13 12:12 | disposition home or self-care (01) ==
PROVIDERS: PCP Physician Assistant; Visit Provider Physician Assistant
DX: R59.1 Generalized enlarged lymph nodes (principal)

== ENCOUNTER → 2024-10-13 10:59 | Outpatient (BNVA) | payer MEDICARE, OTHER, SELFPAY | PROVIDERS: PCP Physician Assistant | DX: R59.1 Generalized enlarged lymph nodes (principal) | CPT/HCPCS: 99212 ==

== ENCOUNTER 2024-10-21 11:30 | Outpatient (AMB) | payer MEDICARE, OTHER, SELFPAY ==
--- NOTE | 2024-10-21 11:41 | A.OFFVIS_ITS ---
Intake Visit Reasons: OV- B/L hip pain, Low back pain radiating to both legs Intake Note: Ema is a 68 year old female who presents with complaints of progressively worsening low back pain which radiates down the posterior aspects of both of her hips. The patient also reports intermittent weakness in both of her legs. She has been walking with a walker because of her pain and weakness. The patient has been going to formal physical therapy for the last few months which has given her minimal relief. She has also tried Tylenol and anti-inflammatory medicines which gave her only mild relief. Allergies No Known Allergies [No Known Allergies*] Allergy (Verified 10/13/24 11:41) Medication List - Last Reconciled 10/21/24 by Irvin Zamora MD buspirone 75 mg (2.5 x 30 mg) PO BEDTIME calcium carbonate (Calcium 500) 1,000 mg PO DAILY calcium carbonate-vitamin D3 600 mg-12.5 mcg (500 unit) (Calcium with Vit D3) caps PO escitalopram oxalate 20 mg PO DAILY 90 days estradiol 0.01%(0.1mg/gram) (Estrace) 1 g vaginal 2XW PRN omega-3 fatty acids (Fish Oil Concentrate) 1,000 mg PO DAILY turmeric mg PO vitamin B complex 1 tab PO DAILY walker (Ultra-Light Rollator misc) As directed [facility] Medical History Right hip pain Back pain Acute low back pain Vesicular rash Encounter to establish care Screening for diabetes mellitus (DM) Screening for hypothyroidism Screening for hypercholesterolemia Annual physical exam COVID-19 Osteoporosis Hemochromatosis No known health problems Surgical History History of bladder suspension procedure History of esophagogastroduodenoscopy (EGD) H/O colonoscopy Family History Other Mental health disorder Social History Household Members Other:: partner Housing: House Alcohol intake: current Alcohol intake frequency: 0-2 drinks per day Alcohol type: beer Patient Tobacco Use Status: Former Tobacco user Cigarettes Per Day: 20 Years Smoked: 15 e-Cigarette/Vaping Use: Never Used Second Hand Smoke Exposure: No Advance Directives Date on File: 10/08/21 service: No Current occupational status: retired Cognitive needs: No Hearing needs: No Vision needs: Yes (Glasses) Physical Exam Const Other: Well-nourished well-developed very friendly female awake alert and oriented x3 in no acute distress Back/Spine/Pelvis Other: Low back examination shows bilateral paraspinal muscle tenderness, pain with range of motion, positive straight leg raise tests bilaterally at 70 degrees Extrem Other: Bilateral hip examination shows minimal discomfort with range of motion, mild tenderness over her bursa, no overlying skin lesions Results Reviewed Results Reviewed: X-rays of the patient's bilateral hip show mild diffuse joint space narrowing, no acute bony abnormalities; AP x-ray of the patient's lower lumbar spine shows diffuse degenerative disc disease Assessment & Plan Assessment & Plan (1) Low back pain radiating to both legs: Code(s): M54.50 - Low back pain, unspecified; M79.604 - Pain in right leg; M79.605 - Pain in left leg Plan Ms. Pepper presents with progressively worsening low back pain which radiates down both of her legs as well as associated bilateral leg weakness most likely due to lumbar stenosis or a disc herniation. Thus, I will send the patient for an MRI of her lumbar spine for further evaluation. I will contact her by phone once the MRI results are available. She will call me prior to that time should her symptoms worsen in any way. Feel free to call me at any time should questions regarding her orthopedic management arise. I spent 20 minutes in reviewing the patient's records and imaging studies, seeing the patient and documenting in the medical record. Orders: Orders XR pelvis 1-2V Today G89.29 - Other chronic pain, M25.551 - Pain in right hip, M25.552 - Pain in left hip MR lumbar spine wo con Today M54.50 - Low back pain, unspecified, M79.604 - Pain in right leg, M79.605 - Pain in left leg Coding Level of Care Code Est Pt Level 3 (53860) Complex EM visit Add On G2211 Diagnoses Low back pain radiating to both legs M54.50; M79.604; M79.605
== END 2024-10-21 11:58 | disposition home or self-care (01) ==
PROVIDERS: PCP Physician Assistant; Visit Provider Orthopaedic Surgery
DX: M54.50 Low back pain, unspecified (principal); M79.604 Pain in right leg; M79.605 Pain in left leg
CPT/HCPCS: 99213; G2211

== ENCOUNTER 2024-10-21 12:20 | Outpatient (REF) | payer MEDICARE, OTHER, SELFPAY ==
--- NOTE | ~2024-10-21 | XR_ITS ---
EXAMINATION: XR PELVIS 1-2 VIEWS HISTORY: M25.551 - Pain in right hip COMPARISON: Comparison is made with the prior examination of the right hip dated 11/05/2022. FINDINGS: A single AP view of the pelvis and one additional view of each hip are submitted. The bones are osteopenic. There is no fracture or dislocation. The hip and sacroiliac joint spaces are maintained. The soft tissues are unremarkable. XR/XR pelvis 1-2V IMPRESSION: Osteopenia. Otherwise unremarkable examination of the pelvis and hips. Electronically signed by: Brodie Wilburn MD 10/22/2024 02:32 PM [facility]
== END 2024-10-21 12:21 | disposition home or self-care (01) ==
LOC: HO.HOSX 12:20
PROVIDERS: Visit Provider Orthopaedic Surgery
DX: M25.551 Pain in right hip (principal); M25.552 Pain in left hip; G89.29 Other chronic pain; R53.1 Weakness; M85.88 Other specified disorders of bone density and structure, other site
CPT/HCPCS: 72170; 99212

== ENCOUNTER → 2024-11-03 10:23 | Outpatient (BNV) | payer MEDICARE, OTHER, SELFPAY | PROVIDERS: PCP Physician Assistant; Visit Provider Radiology Diagnostic Radiology | DX: M48.061 Spinal stenosis, lumbar region without neurogenic claudication (principal) | CPT/HCPCS: 72148 ==

== ENCOUNTER 2024-11-18 12:51 | Outpatient (AMB) | payer MEDICARE, OTHER, SELFPAY ==
--- NOTE | 2024-11-18 12:56 | HO.SPINEOV ---
Vital Signs 11/18/24 13:04 Height 5 ft 3 in Weight 140 lb BMI 24.8 Intake Visit Reasons: LBP Intake Note: Ms. Pepper is here today c/o Low back pain that radiates to the hips. 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 This is a very nice 68-year-old female presents today for evaluation of a bilateral, right greater than left, lower lumbar, pelvic/buttock area pain that started about 3-1/2 years ago. It initially started when she was out for a hike. She was starting to get back into hiking, and got lost on a trail and had to go a few miles further than what she normally would go. She started to feel some discomfort and then it became quite intense to where she was limping to get back to her car. It got a little bit better over the course of a week so she did the hike again and had similar events in terms of the pain. Unfortunately, the pain has never gone away since that day. In fact it has only gotten worse to the point now where she has gone from hiking 5-6 miles every day now to where she can barely walk for more than a few 100 ft before she has to sit down. There is no tingling, numbness or radicular pains down the legs into the feet. The pain is present when she is walking, standing, sitting and lying down at night. There is a constant changing of positions that makes it improves slightly but never fully goes away. Car rides are particularly bad. She will take Motrin and Tylenol as needed but generally tries to wait that out and avoided if possible. She went through extensive physical therapy regimens with multiple providers and never saw any significant improvement. She has also seen a chiropractor that did not help. She is very frustrated with her quality of life at this point. She can not walk flight of stairs because the next day the pain will be so intense. She is here today to be evaluated with a lumbar spine MRI showing some spinal stenosis and degenerative disc disease. PMH: She is otherwise healthy, no major medical problems or major operations. She did have a mid urethral sling done, and has history of osteoporosis. There has been some development of anxiety and depression with this pain syndrome that she has been dealing with. Social hx: She does not smoke, has 1 beer a day, no marijuana Medications: Advil PM, Tylenol, Fosamax, calcium Allergies: None Physical exam: She is awake alert oriented no acute distress, very slow to stand up, has difficulty getting in a vertical posture, her gait has normal stride length but she has very tentative steps. It appears antalgic when she tries to speed up her walking. Positive finger Stevie test. Hip internal and external range of motion appears normal but significant pain with JANIS testing on the right side. Some localized pain over the greater trochanter of the right hip to palpation and pressure. Strength and reflexes are normal. Imaging review: Lumbar MRI done here at [facility] shows some very modest degenerative disc disease at L2-3, no significant stenosis, no nerve compression, no misalignment or significant degenerative disc disease. Hip MRI done in 2022 shows Nondisplaced, irregular tearing of the anterosuperior labrum. . Prominent tendinosis and chronic partial tearing of the gluteus minimus tendon. More moderate gluteus medius tendinosis. Mild proximal right hamstring tendinosis Impression: 68-year-old female presents with progressive severe bilateral low low back/sacral/buttock pain bilateral, right greater than left without radicular features. Her overall lumbar MRI is not all that impressive. There is just some very mild degenerative changes and no meaningful stenosis or disc collapse. I do not think the pain is coming from her lumbar spine. If you do not think the pain is coming from the issues with the right hip and the labral tear/tendinosis of the gluteus minimus, then an alternative diagnosis would be SI joint dysfunction. I would like to send her to our colleague Dr. Duncan and have him do a right SI joint block to see if that is where the pain is coming from. If not, I am wondering if there is any role for re-evaluating the right hip with a new MRI as the last one was 2 years old. She looks very uncomfortable walking, and she has gone from being able to hike 5 miles a day to now being able to barely walk more than a few 100 ft before she has to sit down. I told her to give me a call after the injection is completed and we can re-evaluate. Thank you for allowing us to care for your patient. The total time spent with this visit with this patient was 45 minutes reviewing history, physical exam, lumbar imaging review, and implementation of treatment plan or further diagnostic testing Tony Georges MD,PhD [facility] Orders: Referrals Physiatry Referral G89.29 - Other chronic pain, M53.3 - Sacrococcygeal disorders, not elsewhere classified Coding Level of Care Code New Pt Level 4 (90363) Diagnoses Chronic SI joint pain M53.3; G89.29
[2024-11-18 13:04] VITALS: BMI 24.8
== END 2024-11-18 14:10 | disposition home or self-care (01) ==
PROVIDERS: PCP Physician Assistant; Referring Provider Orthopaedic Surgery; Visit Provider Physician Assistant
DX: M53.3 Sacrococcygeal disorders, not elsewhere classified (principal); G89.29 Other chronic pain
CPT/HCPCS: 99204

== ENCOUNTER → 2024-11-18 12:51 | Outpatient (BNVA) | payer MEDICARE, OTHER, SELFPAY | PROVIDERS: PCP Physician Assistant; Referring Provider Orthopaedic Surgery; Visit Provider Physician Assistant | DX: M53.3 Sacrococcygeal disorders, not elsewhere classified (principal); G89.29 Other chronic pain | CPT/HCPCS: 99202 ==

== ENCOUNTER 2025-02-05 16:03 | Outpatient (REF) | payer MEDICARE, OTHER, SELFPAY ==
--- NOTE | ~2025-02-05 | MR_ITS ---
CLINICAL HISTORY: M25.551 - Pain in right hip MR right hip with and without Comparison: MD/SR - XR PELVIS 1-2V - 10/21/24 11:41 EST MR/SR - MR HIP RT WO CON - 06/24/23 18:02 EDT CR/SR - XR HIP RT MIN 2V - 11/05/22 12:22 EST CR/SR - XR HIP RT W PEL1V - 04/24/22 13:45 EDT Findings: No bone marrow edema or abnormal enhancement. Normal alignment without subluxation. No retroversion, over coverage, os acetabuli. Normal head neck angle. No fibrocystic lesion of the femoral neck. No dysplasia. Trace joint fluid. There is increased signal and irregularity in the labrum most prominent at the anterior aspect, also present on the prior study although more extensive on this examination. Partial-thickness femoral/acetabular chondromalacia. Increased signal in ligamentum teres. The capsule and ligaments are otherwise normal. Tear of gluteus medius and minimus tendons at their insertion upon greater trochanter. Adjacent edema and enhancement without a discrete fluid collection; on the prior study there was a trace amount of fluid. Otherwise unremarkable muscle, tendons and entheses. Normal vessels, nerves and soft tissues. No acute intrapelvic pathology. Colonic diverticulosis. Impression: Tear of the labrum, also present on the prior study, although more extensive. Trace joint effusion. Partial-thickness femoral/acetabular chondromalacia, degenerative. Increased signal in ligamentum teres may indicate partial tear, degenerative. Tears of gluteus medius and minimus tendons at their insertion upon the greater trochanter, also present on the prior study. There is edema and enhancement indicating inflammation without a discrete fluid collection to indicate trochanteric bursitis. This document has been electronically signed by: Kimberly Pereyra MD on 02/07/2025 21:54:11
[2025-02-05] MEDS: gadobutroL 7.5 ML VIAL IVPUSH (17:05)
== END 2025-02-05 16:04 | disposition home or self-care (01) ==
LOC: HO.MRI 16:03
PROVIDERS: PCP Physician Assistant; Visit Provider Physician Assistant
DX: M25.551 Pain in right hip (principal); M25.552 Pain in left hip; G89.29 Other chronic pain
CPT/HCPCS: 73723; A9585

== ENCOUNTER → 2025-02-05 16:03 | Outpatient (BNV) | payer MEDICARE, OTHER, SELFPAY | PROVIDERS: PCP Physician Assistant; Visit Provider Radiology Diagnostic Radiology | DX: M25.551 Pain in right hip (principal) | CPT/HCPCS: 73723 ==

== ENCOUNTER 2025-03-21 15:13 | Outpatient (AMB) | payer MEDICARE, OTHER, SELFPAY ==
[2025-03-21 15:17] VITALS: BP 138/72; PULSE 72; TEMP 36.2; O2SAT 97; BMI 24.6
--- NOTE | 2025-03-21 15:17 | A.OFFPC_ITS ---
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 Accompanied by: Self / Same As Patient Allergies No Known Allergies (No Known Allergies*) Allergy (Verified 03/21/25 15:41) Medication List - Last Reconciled 03/21/25 by Michele Pal PA-C buspirone 75 mg (2.5 x 30 mg) PO BEDTIME calcium carbonate (Calcium 500) 1,000 mg PO DAILY calcium carbonate-vitamin D3 600 mg-12.5 mcg (500 unit) (Calcium with Vit D3) caps PO escitalopram oxalate 20 mg PO DAILY 90 days estradiol 0.01%(0.1mg/gram) (Estrace) 1 g vaginal 2XW PRN omega-3 fatty acids (Fish Oil Concentrate) 1,000 mg PO DAILY turmeric mg PO vitamin B complex 1 tab PO DAILY walker (Ultra-Light Rollator misc) As directed Tobacco use date assessed: 03/21/25 Fall risk assessment: No Falls in past year Last assessed Fall Risk: 03/21/25 Dental Screening Dental Screen Date: 03/21/25 Did you have a dental visit in the last 12 months?: Yes Did you have a dental problem in the last 6 months where you did not have access to dental care?: No Was dental information given to patient?: Patient has dentist HPI annual exam HPI Details Patient is a 69-year-old female here today for an annual physical. Patient has a past medical history significant for osteoporosis, anxiety and depression, hemochromatosis. Major depressive disorder: The patient reports a history of depression, which has been exacerbated by alcohol consumption, specifically [place] beer, leading to macrocytosis as noted in her lab results. She has been self-medicating with alcohol to manage her depression, which has led to increased depressive symptoms and a realization of the negative impact of alcohol on her mental health. Hip osteoarthritis: Patient continues in manual physical therapy and has been doing deep myofascial massage which is very beneficial. She reports she has stopped the use of Fosamax in her joint pains has significantly reduced She has noted her ability to walk further. .. Osteoporosis:? Followed by endocrinology at [facility], as above she has stopped Fosamax as she believed this was causing her joint pains. .. .. Hemochromatosis: Patient followed by audience development manager ( Dr Phan) and gets therape [facility] phlebotomies annually, most recent ferritin at 49 .. MAmmo: Done Jul 2024- BIRADS- 1 .. COMMERCIAL LITIGATION PARALEGAL: See A COMMERCIAL LITIGATION PARALEGAL here in [place]. Colonoscopy: She follows a GI specialist, she gets Cologuard every 3 years. .. Vaccines: Up-to-date with COVID, tetanus, shingles, up-to-date with pneumonia vaccine [facility] Medical History (Updated 03/22/25 @ 07:24 by Michele Pal PA-C) Annual physical exam Right hip pain Back pain Acute low back pain Vesicular rash Encounter to establish care Screening for diabetes mellitus (DM) Screening for hypothyroidism Screening for hypercholesterolemia COVID-19 Osteoporosis Hemochromatosis No known health problems Surgical History History of bladder suspension procedure History of esophagogastroduodenoscopy (EGD) H/O colonoscopy Family History Other Mental health disorder Social History Household Members Other:: partner Housing: House Alcohol intake: current Alcohol intake frequency: 0-2 drinks per day Alcohol type: beer Patient Tobacco Use Status: Former Tobacco user Cigarettes Per Day: 20 Years Smoked: 15 e-Cigarette/Vaping Use: Never Used Second Hand Smoke Exposure: No Advance Directives Date on File: 10/08/21 service: No Current occupational status: retired Cognitive needs: No Hearing needs: No Vision needs: Yes (Glasses) Questionnaire PHQ-9 Over the last 2 weeks, how often have you been bothered by any of the following problems? 1. Little interest or pleasure in doing things: not at all 2. Feeling down, depressed, or hopeless: several days 3. Trouble falling or staying asleep, or sleeping too much: not at all 4. Feeling tired or having little energy: several days 5. Poor appetite or overeating: more than half the days 6. Feeling bad about yourself - or that you are a failure or have let yourself or your family down: not at all 7. Trouble concentrating on things, such as reading the newspaper or watching television: not at all 8. Moving or speaking so slowly that other people could have noticed. Or the opposite - being so fidgety or restless that you have been moving around a lot more than usual: not at all 9. Thoughts that you would be better off or of hurting yourself in some way: not at all Total score: 4 37590 - PHQ-9 Billing: Yes Source: Developed by Drs. Brodie Morales, Sepideh Tristan, Joseph Mcdonald and colleagues, with an educational charito from [employer]. Thrive Questionnaire Date Thrive assessed: 03/21/25 I am a: Patient What is your living situation today?: I have a steady place to live Within the past 12 months, did the food you bought not last and you didn't have the money to get more?: Never true Within the past 12 months, did you worry whether your food would run out before you got money to buy more?: Never true Do you have trouble paying for medicines?: No Do you have trouble getting transportation to medical appointments?: No Do you have trouble paying your heating and electricity bill?: No Do you have trouble taking care of your child, family member or friend?: No Do you have trouble with day-to-day activities such as bathing, preparing meals, shopping, managing finances, etc.?: No Are you currently unemployed and looking for a job?: No Are you interested in more education?: No Please select the resources that you would like help with: None Currently or been in a relationship where the following occur: I choose not to answer THRIVE Score: 0 AUDIT C Alcohol Use Questionnaire (AUDIT-C) 1. How often do you have a drink containing alcohol?: 4 or more times a week 2. How many drinks containing alcohol do you have on a typical day when you are drinking?: 1 or 2 3. How often do you have six or more drinks on one occasion?: Never Total Score: 4 JOSE-7 AMB Questionnaire JOSE-7 Date JOSE - 7 assessed: 03/21/25 Feeling nervous, anxious, or on edge: 2 = More than half the days Not being able to stop or control worryin = Several days Worrying too much about different things: 1 = Several days Trouble relaxin = Several days Being so restless that it is hard to sit still: 0 = Not at all Becoming easily annoyed or irritable: 1 = Several days Feeling afraid as if something awful might happen: 1 = Several days Total JOSE-7 score (0-4 normal; 5-9 mild; 10-14 moderate; 15-21 severe): 7 Source: Developed by Drs. Brodie Morales, Sepideh Tristan, Joseph Mcdonald and colleagues, with an educational charito from [employer]. JOSE-7 Assessment Billing JOSE-7 Assessment Tool: JOSE-7 Assessment 04075 Review of Systems Const Denies body aches, Denies chills, Denies excessive sweating, Denies fatigue, Denies fever(s) and Denies headache(s) Eyes Denies blurry vision ENT Denies dysphagia, Denies vertigo, Denies dizziness, Denies headache(s), Denies hearing loss and Denies tinnitus Card Denies chest pain, Denies chest pain with activity, Denies syncope, Denies irregular heart rhythm and Denies dyspnea Resp Denies chest congestion, Denies cough, Denies hemoptysis, Denies dyspnea and Denies wheezing GI Denies abdominal pain, Denies melena, Denies hematochezia, Denies coffee ground emesis, Denies dysphagia, Denies diarrhea, Denies nausea and Denies vomiting Denies urinary frequency, Denies dysuria, Denies urinary hesitancy and Denies urinary urgency Musc Denies arthralgias, Denies limited range of motion, Denies muscle cramps and Denies muscle weakness Skin/Breast Denies rash and Denies skin ulcer Neuro Denies Abnormal speech present, Denies confusion, Denies vertigo, Denies dizziness, Denies syncope, Denies headache(s), Denies memory loss and Denies seizure-like activity Psych Denies anxiety, Denies confusion, Denies depression, Denies memory loss, Denies panic attacks and Denies paranoia Endo Denies excessive sweating, Denies fatigue, Denies flushing, Denies polydipsia and Denies polyuria Aller/Immun Denies wheezing Physical exam (Primary Care) Vital Signs: Last Vital Signs Temp 97.1 F 03/21/25 15:17 Pulse 72 03/21/25 15:17 BP 138/72 03/21/25 15:17 Pulse Ox 97 03/21/25 15:17 Oxygen Delivery Method Room Air 03/21/25 15:17 BMI result Body Mass Index 24.6 Tobacco/Smoking Status: Tobacco use Status Tobacco use date assessed 03/21/25 03/21/25 15:19 Patient Tobacco Use Status Former Tobacco user 03/21/25 15:17 e-Cigarette/Vaping Use Never Used 03/21/25 15:17 PHQ-9: PHQ-9 Score PHQ-9: Total score 4 03/21/25 15:45 Thrive Assessment: Date of Thrive Assessment Date Thrive assessed 03/21/25 03/21/25 15:19 Currently or been in a relationship where the following occur: I choose not to answer Const General: cooperative, comfortable, no acute distress, alert and awake; No confusion Orientation/consciousness: oriented to person, oriented to place, patient oriented x3 and No confusion HENMT Head: Yes normocephalic Ears: external ears normal and TM's normal bilaterally Face and sinus: No sinus tenderness Mouth: Normal oral and palatal mucosa present and tongue normal Teeth and gingiva: dentition normal and gingiva normal Throat: Yes posterior oropharynx normal, Yes tonsils normal and Yes uvula midline Eyes Conjunctivae: conjunctivae normal Sclerae: sclerae normal Pupils: Equal, round and reactive pupils present EOM: EOMs intact bilaterally Direct Ophthalmoscopy: No no photophobia Neck Neck: Yes no lymphadenopathy, No tender and Yes no JVD Thyroid: Thyroid normal Carotids: no bruits Chest Chest palpation & inspection: no tenderness Resp Effort & Inspection: normal respiratory effort, no audible wheezes, not labored and no stridor Auscultation: no crackles, no rales, no rhonchi and no wheezes Cardio Jugular venous distension: no JVD Rate: regular rate, not bradycardic and not tachycardic Rhythm: regular rhythm Bruits: no carotid bruits Peripheral pulses: Peripheral pulses 2+ throughout GI Inspection: Yes normal to inspection, No abdominal wall ecchymosis and No visible herniation Palpation (GI): Soft to palpation, nontender, no guarding, not rigid and No hepatosplenomegaly present Auscultation: normoactive bowel sounds General: Yes no CVA tenderness Back/Spine/Pelvis Back: no CVA tenderness and No back tenderness Cervical Spine: cervical ROM normal Thoracic/Lumbar Spine: thoracic and lumbar spine normal to inspection, straight leg raise negative bilaterally, No thoraco-lumbar ROM limited and No lumbar spinal tenderness Skin Lesions: no lesions Rashes: no rashes Wounds: no wounds Neuro General: oriented to person, oriented to place, patient oriented x3, CN's II-XI intact bilaterally and No confusion Cranial nerves: Yes Equal, round and reactive pupils present and Yes Normal accommodation reflex present Cognition (Neuro): normal cognition Speech: No Abnormal speech present Gait exam (Neuro): Normal gait present Motor exam (neuro): 5/5 motor strength present throughout Extrem Right upper extremity: full ROM; no cyanosis Left upper extremity: full ROM; no cyanosis Right lower extremity: no edema Left lower extremity: no edema Psych Appearance: grossly normal Mental Status: mental status grossly normal Affect: normal affect Attitude: cooperative Thought process: Normal thought process present Coding Level of Care Code Est Pt Prev Care >65y(34678) Diagnoses Annual physical exam Z00.00 Macrocytosis D75.89 MDD (major depressive disorder), recurrent episode, moderate F33.1 Hereditary hemochromatosis E83.110 Hemochromatosis type: hereditary Spinal stenosis of lumbar region without neurogenic claudication M48.061 Neurogenic claudication status: without neurogenic claudication Additional Codes JOSE-7 Assessment Billing - JOSE-7 Assessment Tool: JOSE-7 Assessment 25621 ([id number]) PHQ-9 - 33861 - PHQ-9 Billing: Yes ([id number]) Assessment & Plan Assessment & Plan (1) Annual physical exam: Code(s): Z00.00 - Encounter for general adult medical examination without abnormal findings Category: Medical Plan: As per HPI (2) Macrocytosis: Code(s): D75.89 - Other specified diseases of blood and blood-forming organs Category: Medical Plan: Has been noted to have slight macrocytosis likely related to her regular alcohol use. She reports she has stopped drinking over the last week (3) MDD (major depressive disorder), recurrent episode, moderate: Code(s): F33.1 - Major depressive disorder, recurrent, moderate Category: Medical Plan: The patient is experiencing exacerbated depression due to alcohol use, particu larly [place] beer. She plans to see a psychiatrist for reassessment and potential medication management, with an appointment scheduled in March. (4) Hemochromatosis: Code(s): E83.119 - Hemochromatosis, unspecified Category: Medical Qualifiers: Hemochromatosis type: hereditary Qualified Code(s): E83.110 - Hereditary hemochromatosis Plan: Patient continues to follow gastroenterology at [facility], most recent ferritin was at 49. (5) Lumbar canal stenosis: Code(s): M48.061 - Spinal stenosis, lumbar region without neurogenic claudication Category: Medical Qualifiers: Neurogenic claudication status: without neurogenic claudication Qualified Code(s): M48.061 - Spinal stenosis, lumbar region without neurogenic claudication Plan: Has seen neurosurgeon for her lumbar spine disc herniation and stenosis, was not a surgical candidate and will continue working on her own physical therapy. Orders: Orders Complete Blood Count no Diff 03/21/25 D75.89 - Other specified diseases of blood and blood-forming organs Vitamin B12 and Folate 03/21/25 D75.89 - Other specified diseases of blood and blood-forming organs, E53.8 - Deficiency of other specified B group vitamins
== END 2025-03-21 16:19 | disposition home or self-care (01) ==
LOC: HO.HMCH 15:13
PROVIDERS: PCP Physician Assistant; Visit Provider Physician Assistant
DX: Z00.00 Encounter for general adult medical examination without abnormal findings (principal); D75.89 Other specified diseases of blood and blood-forming organs; F33.1 Major depressive disorder, recurrent, moderate; E83.110 Hereditary hemochromatosis; M48.061 Spinal stenosis, lumbar region without neurogenic claudication

== ENCOUNTER → 2025-03-21 15:13 | Outpatient (BNVA) | payer MEDICARE, OTHER, SELFPAY | PROVIDERS: PCP Physician Assistant; Visit Provider Physician Assistant | DX: Z00.00 Encounter for general adult medical examination without abnormal findings (principal); D75.89 Other specified diseases of blood and blood-forming organs; F33.1 Major depressive disorder, recurrent, moderate; E83.110 Hereditary hemochromatosis; M48.061 Spinal stenosis, lumbar region without neurogenic claudication | CPT/HCPCS: 96127; 99397 ==

== ENCOUNTER 2025-03-24 10:52 | Outpatient (AMB) | payer MEDICARE, OTHER, SELFPAY ==
--- NOTE | 2025-03-24 10:58 | A.OFFVIS_ITS ---
Vital Signs 03/24/25 11:14 Height 5 ft 3 in Weight 139 lb BMI 24.6 BP 106/54 L Blood Pressure Location Rt brachial Position Sitting Pulse 68 Pulse Source Pulse Oximeter Pulse Oximetry (%) 98 Oxygen Delivery Method Room Air Intake Visit Reasons: Bloating Intake Note: Est pt for eval and mgmt of bloating CC; C.O. bloating, abd distention, lack of appetite, B/L UQ pain and loose stools. Pt reports recent + acute onset within the last week. Idiopathic in nature. No additional concerns reported per pt at this time. 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 Her favorite was by abandoned building but they since discontinued it to her chagrin. Return office visit in 3 years for repeat Cologuard TODAYS VISIT She has episodic occurrences of bloating and looser stools it feels like someone is pushing outward with 2 fists. When this happens she is very uncomfortable. No illness, no new mediations, no diet changes except that she has tried the low FODMAP w/o success. She has been holding off on her kombucha r/t carbonation - but this limits her probiotics. She has never had a lot of digestive issues however her children seem to have quite a bit. They have a lot of problems with tolerance of certain foods such as pork oils etc. and she had a daughter who self treated via diet restrictions for SIBO. Shows no known family history other than this of similar symptoms in terms of her mother and father. Because this is episodic I think that treating for SIBO would be confusing since we would not know if her symptoms recessed because of the treatment or because she simply has cycled out of this occurrence. I think will start by giving a trial of dicyclomine to use for symptomatic relief we will do some food allergy testing, GI panel to make sure there is no microbes involved, and a CRP and general lab work to rule out episodic inflammatory bowel disease. I encouraged her to try restarting her come food check because I think that the carbonation in this situation would be offset by the probiotic, but of course she can listen to her body and modify her intake depending on her experience. She is curious about the breath test for lactose intolerance but this isn't well covered by insurance so we do not perform it here. I tell her that this is usually a trial and error clinical diagnosis and she says she sometimes notices looser stools after milk but she has not consumed any large amounts recently. She does endorse a great deal of anxiety and depression recently especially with the world news and her hx of PTSD, Return office visit in 6 weeks [facility] Medical History (Updated 03/24/25 @ 11:56 by SHAWANDA Queen) Colon cancer screening History of measles, mumps, rubella (MMR) vaccination unknown Right shoulder pain Bilateral hip pain Pain of right sacroiliac joint Annual physical exam Right hip pain Back pain Acute low back pain Vesicular rash Encounter to establish care Screening for diabetes mellitus (DM) Screening for hypothyroidism Screening for hypercholesterolemia COVID-19 Osteoporosis Hemochromatosis No known health problems Surgical History History of bladder suspension procedure History of esophagogastroduodenoscopy (EGD) H/O colonoscopy Family History Other Mental health disorder Social History Household Members Other:: partner Housing: House Alcohol intake: current Alcohol intake frequency: 0-2 drinks per day Alcohol type: beer Patient Tobacco Use Status: Former Tobacco user Cigarettes Per Day: 20 Years Smoked: 15 e-Cigarette/Vaping Use: Never Used Second Hand Smoke Exposure: No Advance Directives Date on File: 10/08/21 service: No Current occupational status: retired Cognitive needs: No Hearing needs: No Vision needs: Yes (Glasses) Review of Systems Const Denies fatigue, Denies fever(s), Denies night sweats, Denies poor appetite and Denies weight loss Eyes Details: Glasses Reports requires corrective lenses ENT Reports Normal hearing present, Denies dental pain, Denies dysphagia, Denies hearing loss, Denies mouth pain, Denies odynophagia, Denies throat swelling, Denies tongue swelling and Reports other (Dentition adequate) Card Reports no additional complaints Resp Reports no additional complaints GI Details: Denies abdominal pain, Denies melena, Reports bloating, Denies hematochezia, Denies constipation, Denies GI cramping, Denies dysphagia, Denies excessive flatus, Denies early satiety, Denies heartburn, Denies diarrhea, Reports loose stools, Denies nausea, Denies odynophagia, Denies vomiting and Denies hematemesis Skin/Breast Denies pruritus, Denies lesions, Denies rash and Denies jaundice Neuro Reports Normal hearing present and Denies Abnormal speech present Psych Reports abnormal sleep pattern, Reports anxiety, Reports change in appetite and Reports depression Endo Denies fatigue Aller/Immun Denies throat swelling and Denies tongue swelling Physical Exam Vital Signs: Last Vital Signs Pulse 68 03/24/25 11:14 BP 106/54 L 03/24/25 11:14 Pulse Ox 98 03/24/25 11:14 Oxygen Delivery Method Room Air 03/24/25 11:14 BMI result Body Mass Index 24.6 Const General: cooperative, no acute distress, well developed and well groomed Nutritional Appearance: well nourished Orientation/consciousness: oriented to person, oriented to place and oriented to time Limitations: No language barrier HEENT Head: Yes normocephalic and Yes atraumatic Eyes General: appearance normal, both eyes and all related structures Pupils: Equal, round and reactive pupils present Neck Neck: Yes normal visual inspection and Yes no lymphadenopathy Thyroid: Thyroid normal Resp Effort & Inspection: normal respiratory effort and able to speak in complete sen tences Auscultation: clear to auscultation bilaterally Cardio Rate: regular rate Rhythm: regular rhythm Heart sounds: Normal, physiologic split S2 sound present Peripheral pulses: radial pulses present and posterior tibial pulses present GI Inspection: No distended and No Abdominal panniculus present Palpation (GI): Soft to palpation, nontender, no guarding, not rigid and No hepa tosplenomegaly present Percussion: Yes normal to percussion Auscultation: normal bowel sounds Rectal Exam - Female: deferred Skin General skin exam: no rashes or lesions noted, turgor normal, skin not dry, no jaundice, No spider nevi and no striae Rashes: no rashes Nails: normal Neuro General: oriented to person, oriented to place and oriented to time Cranial nerves: Yes Equal, round and reactive pupils present and Yes Normal hearing present Speech: No Abnormal speech present Extrem General: Yes normal to inspection, No clubbing, No cyanosis and No edema Psych Appearance: grossly normal and well kempt Mental Status: mental status grossly normal Speech and movement: Normal speech and movement present Affect: normal affect Attitude: cooperative Thought process: Normal thought process present and not confabulating Thought content: Normal thought content present Insight: Fair insight present (Psych) Judgement: Fair judgement present (Psych) Assessment & Plan Assessment & Plan (1) Abdominal bloating: Code(s): R14.0 - Abdominal distension (gaseous) Category: Medical (2) Diarrhea: Code(s): R19.7 - Diarrhea, unspecified Category: Medical Plan She has episodic occurrences of bloating and looser stools it feels like someone is pushing outward with 2 fists. When this happens she is very uncomfortable. No illness, no new mediations, no diet changes except that she has tried the low FODMAP w/o success. She has been holding off on her kombucha r/t carbonation - but this limits her probiotics. She has never had a lot of digestive issues however her children seem to have quite a bit. They have a lot of problems with tolerance of certain foods such as pork oils etc. and she had a daughter who self treated via diet restrictions for SIBO. Shows no known family history other than this of similar symptoms in terms of her mother and father. Because this is episodic I think that treating for SIBO would be confusing since we would not know if her symptoms recessed because of the treatment or because she simply has cycled out of this occurrence. I think will start by giving a trial of dicyclomine to use for symptomatic relief we will do some food allergy testing, GI panel to make sure there is no microbes involved, and a CRP and general lab work to rule out episodic inflammatory bowel disease. I encouraged her to try restarting her come food check because I think that the carbonation in this situation would be offset by the probiotic, but of course she can listen to her body and modify her intake depending on her experience. She is curious about the breath test for lactose intolerance but this isn't well covered by insurance so we do not perform it here. I tell her that this is usually a trial and error clinical diagnosis and she says she sometimes notices looser stools after milk but she has not consumed any large amounts recently. She does endorse a great deal of anxiety and depression recently especially with the world news and her hx of PTSD, Return office visit in 6 weeks Orders: Orders Rast Allergen Today R19.7 - Diarrhea, unspecified Transglutaminase IgA Today R19.7 - Diarrhea, unspecified Transglutaminase Ab IgG Today R19.7 - Diarrhea, unspecified GI Panel Today R19.7 - Diarrhea, unspecified C Reactive Protein Today R19.7 - Diarrhea, unspecified H Pylori Breath Test Today Medications: New dicyclomine 10 mg PO QID 120 caps 3RF R19.7 - Diarrhea, unspecified Coding Level of Care Code Est Pt Level 4 (22043) Diagnoses Abdominal bloating R14.0 Diarrhea R19.7 Time Spent (min) 40
[2025-03-24 11:14] VITALS: BP 106/54; PULSE 68; O2SAT 98; BMI 24.6
== END 2025-03-24 12:20 | disposition home or self-care (01) ==
LOC: HO.HGI 10:53
PROVIDERS: PCP Physician Assistant; Visit Provider Nurse Practitioner
DX: R14.0 Abdominal distension (gaseous) (principal); R19.7 Diarrhea, unspecified
CPT/HCPCS: 99214

== ENCOUNTER 2025-03-24 10:52 | Outpatient (REF) | payer MEDICARE, OTHER, SELFPAY ==
[2025-03-24 14:20] LABS: Hematocrit 37.9 % (37.0-47.0); Hemoglobin 13.2 g/dl (12.0-16.0); Mean Corpuscular HGB Conc 34.8 g/dl (31.0-35.0); Mean Corpuscular Volume 100.5 fL (80.0-98.0); Mean Platelet Volume 10.3 fL (9.4-12.3); Platelet Count 186 X10*3/uL (160-400); Red Blood Count 3.77 X10*6/uL (4.20-5.50); Red Cell Distribution Width 11.8 % (11.0-16.0); White Blood Count 3.6 X10*3/uL (4.8-10.8)
[2025-03-24 14:50] LABS: C Reactive Protein < 0.10 mg/dL (< or = 0.50)
[2025-03-24 15:20] LABS: Folate 14.4 ng/mL (> or = 4.0); Vitamin B12 690 pg/mL (200-900)
[2025-03-25 17:44] LABS: Transglutaminase Ab IgG <1.0 U/mL; Transglutaminase IgA <1.0 U/mL
== END 2025-03-24 10:53 | disposition home or self-care (01) ==
LOC: HO.LAB 10:52
PROVIDERS: PCP Physician Assistant; Visit Provider Nurse Practitioner
DX: R19.7 Diarrhea, unspecified (principal); D75.89 Other specified diseases of blood and blood-forming organs; E53.8 Deficiency of other specified B group vitamins; Z78.9 Other specified health status; Z91.09 Other allergy status, other than to drugs and biological substances
CPT/HCPCS: 36415; 82607; 82746; 85027; 86003; 86140; 86364; 86765; 99212

== ENCOUNTER 2025-03-30 12:09 | Outpatient (REF) | payer MEDICARE, OTHER, SELFPAY ==
[2025-03-31 17:27] LABS: E. coli EAEC Not Detected (Not Detect.); E. coli EPEC Not Detected (Not Detect.); E. coli ETEC Not Detected (Not Detect.); E. coli STEC Not Detected (Not Detect.); Shigella sp./EIEC Not Detected (Not Detect.)
== END 2025-03-30 12:10 | disposition home or self-care (01) ==
LOC: HO.LNP 12:09
PROVIDERS: Visit Provider Nurse Practitioner
DX: R19.7 Diarrhea, unspecified (principal)
CPT/HCPCS: 87507

== ENCOUNTER 2025-04-04 14:28 | Outpatient (AMB) | payer MEDICARE, OTHER, SELFPAY ==
--- NOTE | 2025-04-04 14:32 | MHC.PC.OV ---
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 The right shoulder pain has been persistent, with a history of tendinitis diagnosed previously. The patient reported re-injury of the shoulder after carrying heavy boxes, leading to significant discomfort and inability to sleep on the affected side. Physical therapy was previously undertaken, which initially improved the condition until overexertion led to a recurrence of symptoms. The patient also expressed concerns about cognitive impairment, noting episodes of forgetfulness and difficulty maintaining conversations. There is a significant family history of Alzheimer's disease, with the patient's mother and great aunt having been affected. The patient requested cognitive testing due to these concerns. [facility] Medical History (Updated 04/04/25 @ 15:10 by Michele Pal PA-C) Right shoulder pain Colon cancer screening History of measles, mumps, rubella (MMR) vaccination unknown Bilateral hip pain Pain of right sacroiliac joint Annual physical exam Right hip pain Back pain Acute low back pain Vesicular rash Encounter to establish care Screening for diabetes mellitus (DM) Screening for hypothyroidism Screening for hypercholesterolemia COVID-19 Osteoporosis Hemochromatosis No known health problems Surgical History History of bladder suspension procedure History of esophagogastroduodenoscopy (EGD) H/O colonoscopy Family History Other Mental health disorder Social History Household Members Other:: partner Housing: House Alcohol intake: current Alcohol intake frequency: 0-2 drinks per day Alcohol type: beer Patient Tobacco Use Status: Former Tobacco user Cigarettes Per Day: 20 Years Smoked: 15 e-Cigarette/Vaping Use: Never Used Second Hand Smoke Exposure: No Advance Directives Date on File: 10/08/21 service: No Current occupational status: retired Cognitive needs: No Hearing needs: No Vision needs: Yes (Glasses) Questionnaire Thrive Questionnaire Date Thrive assessed: 04/04/25 I am a: Patient What is your living situation today?: I have a steady place to live Within the past 12 months, did the food you bought not last and you didn't have the money to get more?: Never true Within the past 12 months, did you worry whether your food would run out before you got money to buy more?: Never true Do you have trouble paying for medicines?: No Do you have trouble getting transportation to medical appointments?: No Do you have trouble paying your heating and electricity bill?: No Do you have trouble taking care of your child, family member or friend?: No Do you have trouble with day-to-day activities such as bathing, preparing meals, shopping, managing finances, etc.?: No Are you currently unemployed and looking for a job?: No Are you interested in more education?: No Please select the resources that you would like help with: None Currently or been in a relationship where the following occur: I choose not to answer THRIVE Score: 0 JOSE-7 AMB Questionnaire JOSE-7 Date JOSE - 7 assessed: 04/04/25 Source: Developed by Drs. Brodie Morales, Sepideh Tristan, Joseph Mcdonald and colleagues, with an educational charito from [employer]. Review of Systems Const Denies headache(s) Eyes Denies loss of vision ENT Denies vertigo, Denies dizziness, Denies headache(s) and Denies sore throat Card Denies chest pain, Denies leg edema and Denies lightheadedness Resp Denies cough, Denies hemoptysis and Denies wheezing GI Denies abdominal pain, Denies melena, Denies constipation, Denies diarrhea and Denies vomiting Denies urinary frequency, Denies dysuria and Denies urinary urgency Musc Denies arthralgias, Denies joint swelling, Denies numbness and Denies tingling Neuro Denies Abnormal speech present, Denies behavioral changes, Denies vertigo, Denies dizziness, Denies headache(s), Denies loss of vision, Reports memory loss, Denies numbness and Denies tingling Psych Denies anxiety, Denies behavioral changes, Denies depression, Reports memory loss and Denies panic attacks Marko/Lymph Denies easy bleeding and Denies easy bruising Aller/Immun Denies wheezing Physical exam (Primary Care) Vital Signs: Last Vital Signs Pulse 54 04/04/25 14:33 BP 132/74 04/04/25 14:33 Pulse Ox 98 04/04/25 14:33 Oxygen Delivery Method Room Air 04/04/25 14:33 BMI result Body Mass Index 25.2 Tobacco/Smoking Status: Tobacco use Status Tobacco use date assessed 03/21/25 04/04/25 14:34 Patient Tobacco Use Status Former Tobacco user 04/04/25 14:34 e-Cigarette/Vaping Use Never Used 04/04/25 14:34 Thrive Assessment: Date of Thrive Assessment Date Thrive assessed 04/04/25 04/04/25 14:41 Currently or been in a relationship where the following occur: I choose not to answer Const General: healthy appearing, no acute distress, alert and awake Nutritional Appearance: well nourished Orientation/consciousness: oriented to person, oriented to place and oriented to time HENMT Ears: TM's normal bilaterally General nose exam: Normal nasal mucous membranes and turbinates present Eyes Conjunctivae: conjunctivae normal Sclerae: sclerae normal Pupils: Equal, round and reactive pupils present Neck Neck: Yes no lymphadenopathy and Yes no JVD Thyroid: Thyroid normal Carotids: no bruits Resp Effort & Inspection: normal respiratory effort and not tachypneic Auscultation: no crackles, no rales, no rhonchi and no wheezes Cardio Rate: regular rate Rhythm: regular rhythm Heart sounds: no murmurs and normal S1 and S2 GI Palpation (GI): Soft to palpation, nontender, no hepatomegaly and no splenomegaly Auscultation: normal bowel sounds Skin General skin exam: no rashes or lesions noted and dry skin Neuro General: oriented to person, oriented to place and oriented to time Cranial nerves: Yes Equal, round and reactive pupils present Speech: No Abnormal speech present Gait exam (Neuro): Normal gait present Motor exam (neuro): no tremor noted Extrem Other: RIGHT SHOULDER WITH FULL RANGE OF MOTION, HAS BEEN PAIN TO DEEP PALPATION OVER THE POSTERIOR ASPECT OF THE RIGHT SHOULDER JUST ABOVE THE SCAPULA Right upper extremity: full ROM Left upper extremity: full ROM Shoulder/upper arm images:  1. PAIN TO PALPATION LOCATED IN THE AREA OUTLINED Right lower extremity: full ROM; no edema Left lower extremity: full ROM; no edema Psych Mental Status: mental status grossly normal Speech and movement: Normal speech and movement present Affect: normal affect Attitude: cooperative Thought process: Normal thought process present Orientation What is the (year) (season) (date) (day) (month)?: year Where are we (state) (county) (town or city) (hospital) (floor)?: town or city Attention & Calculation (CHOOSE ONE) Ask pt to begin with 100 & count backward by 7. Stop after 5 repeats. If pt cannot ask them to spell the word WORLD backward.: 79 Spell WORLD backwards (DLROW): 5 letters Language Show patient a wristwatch & ask what it is. Repeat for pencil.: watch and pencil Ask the patient to repeat the phrase 'No ifs, ands, or buts' after you.: correct Score Score: 11 Coding Level of Care Code Est Pt Level 4 (53047) Diagnoses Chronic right shoulder pain M25.511; G89.29 Chronicity: chronic Right shoulder tendinitis M77.8 Family history of Alzheimer disease Z82.0 Memory impairment R41.3 Assessment & Plan Assessment & Plan (1) Right shoulder pain: Code(s): M25.511 - Pain in right shoulder Category: Medical Qualifiers: Chronicity: chronic Qualified Code(s): M25.511 - Pain in right shoulder; G89.29 - Other chronic pain Plan: Patient continues to have posterior right shoulder pain, most consistent with rotator tendinopathy. She is eager to start physical therapy to help her pain. She has gotten an x-ray in 2021 over right shoulder which was essentially stable (2) Right shoulder tendinitis: Code(s): M77.8 - Other enthesopathies, not elsewhere classified Category: Medical Plan: As above (3) Family history of Alzheimer disease: Code(s): Z82.0 - Family history of epilepsy and other diseases of the nervous system Category: Medical Plan: Patient has a family history of Alzheimer dementia disease in her mother and brother. She reports she has been having some trouble with her memory impairment herself. Mini-mental exam and clock drawing test has been done today in office. (4) Memory impairment: Code(s): R41.3 - Other amnesia Category: Medical Plan: Cognitive testing was initiated with a Mini-Mental State Examination, including clock drawing and memory recall tests. A neurology referral was discussed to further evaluate cognitive concerns, considering the family history of Alzheimer's disease. Orders: Orders PT Evaluation and Treatment Today M25.511 - Pain in right shoulder
[2025-04-04 14:33] VITALS: BP 132/74; PULSE 54; O2SAT 98; BMI 25.2
== END 2025-04-04 15:14 | disposition home or self-care (01) ==
LOC: HO.HMCH 14:29
PROVIDERS: PCP Physician Assistant; Visit Provider Physician Assistant
DX: M25.511 Pain in right shoulder (principal); G89.29 Other chronic pain; M77.8 Other enthesopathies, not elsewhere classified; Z82.0 Family history of epilepsy and other diseases of the nervous system; R41.3 Other amnesia

== ENCOUNTER → 2025-04-04 14:28 | Outpatient (BNVA) | payer MEDICARE, OTHER, SELFPAY | PROVIDERS: PCP Physician Assistant; Visit Provider Physician Assistant | DX: M25.511 Pain in right shoulder (principal); G89.29 Other chronic pain; M77.8 Other enthesopathies, not elsewhere classified; R41.3 Other amnesia; Z82.0 Family history of epilepsy and other diseases of the nervous system | CPT/HCPCS: 99212 ==

== ENCOUNTER 2025-04-07 10:54 | Outpatient (REF) | payer MEDICARE, OTHER, SELFPAY | END 2025-04-07 10:55 | disposition home or self-care (01) | LOC: HO.LNP 10:54 | PROVIDERS: PCP Physician Assistant; Visit Provider Nurse Practitioner | DX: Z11.0 Encounter for screening for intestinal infectious diseases (principal) | CPT/HCPCS: 83013; 99211 ==

== ENCOUNTER 2025-04-07 10:54 | Outpatient (AMB) | payer MEDICARE, OTHER, SELFPAY ==
--- NOTE | 2025-04-07 11:10 | AM.OFFVISNUR ---
Intake Visit Reasons: HP Breath Test. Nothing held, NPO. Allergies No Known Allergies (No Known Allergies*) Allergy (Verified 04/04/25 14:33) Nursing Note Patient presents for collection of H Pylori breath test. Patient has been fasting for 1 hour (nothing to eat, drink, no chewing gum or smoking) has not taken any antacid medication for at least 2 weeks and has no allergies to artificial sweeteners.?? Assessment & Plan Assessment & Plan (1) Abdominal bloating: Code(s): R14.0 - Abdominal distension (gaseous) Category: Medical Plan Patient presents for collection of H Pylori breath test. Patient has been fasting for 1 hour (nothing to eat, drink, no chewing gum or smoking) has not taken any antacid medication for at least 2 weeks and has no allergies to artificial sweeteners.???This test checks for an overgrowth of bacteria in your stomach. We all have bacteria but some may have more than others. It is treatable. if the test comes back negative there is nothing else to do. If the test result is positive we will treat you with 2 antibiotics and a medication to decrease the acid in your stomach (PPI) for 2 weeks. Two weeks after you have completed the treatment we will retest you to make sure the overgrowth has resolved. Patient Instructions: Process for specimen collection and reason for testing was explained to the patient. Specimen collection. Patient instructed to take a deep breath and then exhale into the blue bag, filling it up as much as possible. Patient instructed to drink a mixture of water and the artificial sweetener with a straw. A 15 minute wait period was observed. Patient instructed to take a deep breath and then exhale into the pink bag, filling it up as much as possible.?? Coding Level of Care Code Established Pt Est Pt Level 1 (24482) Patient Type Established Medical Decision Making Straight Forward Diagnoses Abdominal bloating R14.0
== END 2025-04-07 11:11 | disposition home or self-care (01) ==
LOC: HO.HGI 10:55
PROVIDERS: PCP Physician Assistant; Visit Provider Nurse Practitioner
DX: R14.0 Abdominal distension (gaseous) (principal)

== ENCOUNTER 2025-05-06 11:56 | Outpatient (AMB) | payer MEDICARE, OTHER, SELFPAY ==
[2025-05-06 11:58] VITALS: BP 127/80; PULSE 64; BMI 23.7
--- NOTE | 2025-05-06 11:58 | MHC.OFFVIS ---
Vital Signs 05/06/25 11:58 Height 5 ft 3 in Weight 134 lb 0.657 oz BMI 23.7 BP 127/80 Blood Pressure Location Lt brachial Position Sitting Pulse 64 Intake Visit Reasons: 6 wks f/u Intake Note: Patient in office today in follow up of abdominal pain. CC: Patient states that has been feeling better with the Creon but last night she ate some kale with garlic and onions and 40 mins later her abdomen became very bloated. She also states that she also saw some undigested food in her stool. Supervisor Cartography Required: No Accompanied by: Self / Same As Patient Allergies No Known Allergies (No Known Allergies*) Allergy (Verified 05/06/25 12:15) HPI HPI 6 wks f/u: Details: Assessment & Plan (1) Abdominal bloating: Code(s): R14.0 - Abdominal distension (gaseous) Category: Medical (2) Diarrhea: Code(s): R19.7 - Diarrhea, unspecified Category: Medical Plan She has episodic occurrences of bloating and looser stools it feels like someone is pushing outward with 2 fists. When this happens she is very uncomfortable. No illness, no new mediations, no diet changes except that she has tried the low FODMAP w/o success. She has been holding off on her kombucha r/t carbonation - but this limits her probiotics. She has never had a lot of digestive issues however her children seem to have quite a bit. They have a lot of problems with tolerance of certain foods such as pork oils etc. and she had a daughter who self treated via diet restrictions for SIBO. Shows no known family history other than this of similar symptoms in terms of her mother and father. Because this is episodic I think that treating for SIBO would be confusing since we would not know if her symptoms recessed because of the treatment or because she simply has cycled out of this occurrence. I think will start by giving a trial of dicyclomine to use for symptomatic relief we will do some food allergy testing, GI panel to make sure there is no microbes involved, and a CRP and general lab work to rule out episodic inflammatory bowel disease. I encouraged her to try restarting her come food check because I think that the carbonation in this situation would be offset by the probiotic, but of course she can listen to her body and modify her intake depending on her experience. She is curious about the breath test for lactose intolerance but this isn't well covered by insurance so we do not perform it here. I tell her that this is usually a trial and error clinical diagnosis and she says she sometimes notices looser stools after milk but she has not consumed any large amounts recently. She does endorse a great deal of anxiety and depression recently especially with the world news and her hx of PTSD, Return office visit in 6 weeks Orders: Orders Rast Allergen Today R19.7 - Diarrhea, unspecified Transglutaminase IgA Today R19.7 - Diarrhea, unspecified Transglutaminase Ab IgG Today R19.7 - Diarrhea, unspecified GI Panel Today R19.7 - Diarrhea, unspecified C Reactive Protein Today R19.7 - Diarrhea, unspecified H Pylori Breath Test Today Medications: New dicyclomine 10 mg PO QID 120 caps 3RF R19.7 - Diarrhea, unspecified LABS; Laboratory Tests 03/24/25 04/07/25 13:03 11:21 C-Reactive Protein < 0.10 Tiss Transglutamin IgG <1.0 Tiss Transglutamin IgA <1.0 H. pylori Breath Test Negative RAST panel shows no significant food allergies 03/30/25-[address]: ORDERED: GI Panel Test Result Flag Reference Campylobacter Not Detected Not Detect. P. shigelloides Not Detected Not Detect. Salmonella Not Detected Not Detect. Vibrio Not Detected Not Detect. Vibrio Cholerae Not Detected Not Detect. Y. enterocolit. Not Detected Not Detect. E. coli EAEC Not Detected Not Detect. E. coli EPEC Not Detected Not Detect. E. coli ETEC Not Detected Not Detect. E. coli STEC Not Detected Not Detect. E. coli O157 Not applicable Not Detect. E. coli containing the O157 antigen are a subset of Shiga-like toxin-producing E. coli (STEC). Shigella/EIEC Not Detected Not Detect. Cryptosporidium Not Detected Not Detect. Cyclospora Not Detected Not Detect. E. histolytica Not Detected Not Detect. Giardia lamblia Not Detected Not Detect. Adenovirus Not Detected Not Detect. Astrovirus Not Detected Not Detect. Norovirus Not Detected Not Detect. Rotavirus A Not Detected Not Detect. Sapovirus Not Detected Not Detect. TODAYS VISIT We review the results. So far, the bentyl did not help her but the FODMAP and creon is working for her. She was doing the FODMAP diet but then just started adding foods back in . She was doing well until she had a kale sauce and became very bloated. She also stopped drinking beer as well. She has lost 8 lbs. We discuss that it could be the kale or even the garlic causing the problem. She was only taking 1 - 2 creon a day. I encourage her to take more, more frequently in a day. Had a nurse call her in stead of reacting just via the portal. She likes to speak with live people. She is encouraged with her progress. Her stooling has improved from ROV 8 weeks. [facility] Medical History (Updated 04/04/25 @ 15:10 by Michele Pla PA-C) Right shoulder pain Colon cancer screening History of measles, mumps, rubella (MMR) vaccination unknown Bilateral hip pain Pain of right sacroiliac joint Annual physical exam Right hip pain Back pain Acute low back pain Vesicular rash Encounter to establish care Screening for diabetes mellitus (DM) Screening for hypothyroidism Screening for hypercholesterolemia COVID-19 Osteoporosis Hemochromatosis No known health problems Surgical History History of bladder suspension procedure History of esophagogastroduodenoscopy (EGD) H/O colonoscopy Family History Other Mental health disorder Social History Household Members Other:: partner Housing: House Alcohol intake: current Alcohol intake frequency: 0-2 drinks per day Alcohol type: beer Patient Tobacco Use Status: Former Tobacco user Cigarettes Per Day: 20 Years Smoked: 15 e-Cigarette/Vaping Use: Never Used Second Hand Smoke Exposure: No Advance Directives Date on File: 10/08/21 service: No Current occupational status: retired Cognitive needs: No Hearing needs: No Vision needs: Yes (Glasses) Review of Systems Const Denies fatigue, Denies fever(s), Denies night sweats, Denies poor appetite and Denies weight loss Eyes Details: glasses Reports requires corrective lenses ENT Reports Normal hearing present, Denies dental pain, Denies dysphagia, Denies hearing loss, Denies mouth pain, Denies odynophagia, Denies throat swelling, Denies tongue swelling and Reports other (Dentition adequate) Card Reports no additional complaints Resp Reports no additional complaints GI Details: Denies abdominal pain, Denies melena, Reports bloating, Denies hematochezia, Denies constipation, Denies GI cramping, Denies dysphagia, Denies excessive flatus, Denies early satiety, Denies heartburn, Denies diarrhea, Denies nausea, Denies odynophagia, Denies vomiting and Denies hematemesis Skin/Breast Denies pruritus, Denies lesions, Denies rash and Denies jaundice Neuro Reports Normal hearing present and Denies Abnormal speech present Endo Denies fatigue Aller/Immun Denies throat swelling and Denies tongue swelling Physical Exam Vital Signs: Last Vital Signs Pulse 64 05/06/25 11:58 BP 127/80 05/06/25 11:58 BMI result Body Mass Index 23.7 Const General: cooperative, no acute distress, well developed and well groomed Nutritional Appearance: average body habitus and well nourished Orientation/consciousness: oriented to person, oriented to place and oriented to time Limitations: No language barrier HEENT Head: Yes normocephalic and Yes atraumatic Eyes General: appearance normal, both eyes and all related structures Pupils: Equal, round and reactive pupils present Neck Neck: Yes normal visual inspection and Yes no lymphadenopathy Thyroid: Thyroid normal Resp Effort & Inspection: normal respiratory effort and able to speak in complete sentences Auscultation: clear to auscultation bilaterally Cardio Rate: regular rate Rhythm: regular rhythm Heart sounds: Normal, physiologic split S2 sound present Peripheral pulses: radial pulses present and posterior tibial pulses present GI Inspection: No distended and No Abdominal panniculus present Palpation (GI): Soft to palpation, nontender, no guarding, not rigid and No hepatosplenomegaly present Percussion: Yes normal to percussion Auscultation: normal bowel sounds Rectal Exam - Female: deferred Skin General skin exam: no rashes or lesions noted, turgor normal, skin not dry, no jaundice, No spider nevi and no striae Rashes: no rashes Nails: normal Neuro General: oriented to person, oriented to place and oriented to time Cranial nerves: Yes Equal, round and reactive pupils present and Yes Normal hearing present Speech: No Abnormal speech present Extrem General: Yes normal to inspection, No clubbing, No cyanosis and No edema Psych Appearance: grossly normal and well kempt Mental Status: mental status grossly normal Speech and movement: Normal speech and movement present Affect: normal affect Attitude: cooperative Thought process: Normal thought process present and not confabulating Thought content: Normal thought content present Insight: Fair insight present (Psych) Judgement: Fair judgement present (Psych) Assessment & Plan Assessment & Plan (1) Abdominal bloating: Code(s): R14.0 - Abdominal distension (gaseous) Category: Medical (2) Diarrhea: Code(s): R19.7 - Diarrhea, unspecified Category: Medical Plan We review the results. So far, the bentyl did not help her but the FODMAP and creon is working for her. She was doing the FODMAP diet but then just started adding foods back in . She was doing well until she had a kale sauce and became very bloated. She also stopped drinking beer as well. She has lost 8 lbs. We discuss that it could be the kale or even the garlic causing the problem. She was only taking 1 - 2 creon a day. I encourage her to take more, more frequently in a day. Had a nurse call her in stead of reacting just via the portal. She likes to speak with live people. She is encouraged with her progress. Her stooling has improved from ROV 8 weeks. Coding Level of Care Code Est Pt Level 3 (22879) Diagnoses Abdominal bloating R14.0 Diarrhea R19.7
== END 2025-05-06 13:00 | disposition home or self-care (01) ==
LOC: HO.HGI 11:56
PROVIDERS: PCP Physician Assistant; Visit Provider Nurse Practitioner
DX: R14.0 Abdominal distension (gaseous) (principal); R19.7 Diarrhea, unspecified
CPT/HCPCS: 99213

== ENCOUNTER → 2025-05-06 11:56 | Outpatient (BNVA) | payer MEDICARE, OTHER, SELFPAY | PROVIDERS: PCP Physician Assistant; Visit Provider Nurse Practitioner | DX: R14.0 Abdominal distension (gaseous) (principal); R19.7 Diarrhea, unspecified | CPT/HCPCS: 99212 ==

== ENCOUNTER 2025-06-10 09:53 | Outpatient (REF) | payer MEDICARE, OTHER, SELFPAY ==
--- NOTE | ~2025-06-10 | US_ITS ---
EXAMINATION: US ABDOMEN HISTORY: R14.0 - Abdominal distension (gaseous) TECHNIQUE: Real-time grayscale ultrasound imaging of the abdomen was performed and images were reviewed. COMPARISON: There are no prior studies available for comparison. FINDINGS: Liver: The right lobe of the liver measures 14.7 cm in size. The left lobe of the liver measures 9.5 cm in size. The liver demonstrates increased echotexture, consistent with steatosis. No focal mass or intrahepatic biliary ductal dilatation is identified. There is normal hepatopedal flow in the portal vein. Gallbladder and biliary tree: The gallbladder is unremarkable, without evidence of calculi, wall thickening, or pericholecystic fluid. There is no sonographic Sprague sign. The common bile duct is normal in caliber measuring 4 mm. Kidneys: The right kidney measures 10.6 cm in length. The left kidney measures 10.4 cm in length. The kidneys are unremarkable, without evidence of masses, hydronephrosis, or calculi. Pancreas: The pancreatic head, neck, and body are unremarkable. The pancreatic tail is obscured by bowel gas. Spleen: The spleen is normal in size and contour, measuring 8.3 cm in length. Abdominal aorta and inferior vena cava: The visualized portions of the abdominal aorta and inferior vena cava are normal in caliber. There is no free fluid in the abdomen. US/US abdomen complete IMPRESSION: Hepatic steatosis. Otherwise unremarkable abdominal ultrasound. Electronically signed by: Brodie Wilburn MD 06/10/2025 10:40 AM EDT
--- OUTSIDE RECORDS SUMMARY | 2025-06-10 11:08 | XMS_ITS | Encounter Summary ---
Author Organization [facility] Address [address] [place] [address] Phone Care Team Providers Care Director Of People Name Role Phone AramisBrodie Joseline ROD Unavailable [phone] Cassi Whitley CARDIOLOGY PHYSICIAN ASSISTANT Unavailable [phone] Ayah Sosa MD Unavailable [phone] Juan David Ramos MD Primary Care Provide r Yuan Winslow MD Unavailable Sarah Farley MD Unavailable Philip Mendez MD, PhD Unavailable Angy Amado-C Unavailable Michele Pal Primary Care Provider + Encounter Details Date Type Department Care Team (Late st Contact Info) Description 05/04/2021 Ancillary Orders [facility],Outside Imaging [address] [place] [address] System, Provider Not In, PhD Partners [address] [address] Social History Tobacco Use Types Packs/Day Years Used Date Smoking Tobacco: Former Smokeless Tobacco: Never Alcohol Use Standard Drinks/Week Comments Yes 0 (1 standard drink = 0.6 oz pur e alcohol) 1 or less per week Comments Unknown Sex and Gender Information Value Date Recorded Sex Assigned at Not on file Legal Sex Female 9:57 PM EDT Gender Identity Not on file Sexual Orientation Not on file documented as of this encounter Plan of Treatment Upcoming Encounters Date Type Department Care Team (Late st Contact Info) Description 06/21/2025 1:30 PM EDT Office Visit [facility] [address] [place] [address] Michele Pal PA [address] [place] [address] Sabrina Glover, PT [address] [place] [address] [email or web address] 08/08/2025 11:10 AM EST Appointment [facility] [address] [place] [address] Angy Amado PA-C [address] [place] [phone] 02/08/2026 1:00 PM EDT Appointment [facility] [address] [place] [address] Angy Amado PA-C [address] [place] [address] 02/08/2026 2:00 PM EDT Office Visit [facility] [address] [place] [address] Angy Amado PA-C [address] [place] [phone] documented as of this encounter Results * XR Lower Extremity Outside (No Interpretation) (04/30/2021 12:00 AM EDT) Narrative SYSTEMGENERATED, DOCUMENTATION - 05/04/2021 7:20 AM EDT This study is for PACS storage only and not for interpretation. us Provider Not In System PhD IMG OUTSIDE IMAGING W /OUT INTERPRETATION Final Result documented in this encounter Visit Diagnoses Not on filedocumented in this encounter Care Teams Director Of People Relationship Specialty Start Date End Date Juan David Ramos MD [address] [address] PCP - General Family Medicine 10/22/18 08/25/22 [place] [address] [place] [address] PCP - General 08/26/22 Brodie Self DO [address] [place] [phone] [email or web address] Historical LMR Provider 07/20/17 10/06/21 Cassi Whitley NP [address] [place] [id number] [email or web address] Historical LMR Provider 07/20/17 10/06/21 Ayah Sosa MD [address] [place] [address] Historical LMR Provider 07/20/17 2 Yuan Winslow MD [address] [address] [email or web address] Historical LMR Provider Hematology and Oncology 08/17/20 10/14/21 Sarah Farley MD [address] [place] [address] [email or web address] Primary Oncologist Hematology and Oncology 05/10/21 10/16/21 Philip Mendez MD, PhD [address] [address] [email or web address] Consulting Provider Hematology 11/28/21 06/19/22 Angy Amado PA-C [address] [place] [address] [email or web address] Physician [employer] Specialist Hematology 06/20/22 documented as of this encounter Additional Source Comments The information contained in this document represents components of the legal health record. It is not the complete legal health record.[facility]
--- OUTSIDE RECORDS SUMMARY | 2025-06-10 11:08 | XMS_ITS | Clinical Summary ---
Author Organization [facility] Address [address] [place] [address] Phone Care Team Providers Care Podiatric Physician Name Role Phone Angy Amado PA-C Unavailable Michele Pal Primary Care Provider + Allergies Active Allergy Reactions Criticality Noted Date Comments Azithromycin Fever 07/24/2022 Erythromycin 07/24/2022 Medications raloxifene (EVISTA) 60 mg tablet Take 1 tablet by mouth daily. Active Medication-Elroy e Text 1,200 mg daily. Calcium Active escitalopram oxalate (LEXAPRO) 20 MG tablet Take 20 mg by mouth daily. Active omega-3 fatty acids 1,000 mg Cap Take 1 capsule by mouth daily. with a meal Active Medication-Elroy e Text 40 mg daily. busprone , Si mg Active busPIRone (BUSPAR) 30 MG tablet 75 mg. 2 Active turmeric (CURCUMIN MISC) by Miscellaneous route. Active alendronate (FOSAMAX) 35 MG tablet Take 35 mg by mouth every 7 days. Take in the morning with a full glass of water, on an empty stomach, and do not take anything else by mouth or lie down for the next 30 min. Active estradioL (ESTRACE) 0.01 % (0.1 mg/gram) vaginal cream Place 2 g vaginally daily. Active baclofen (LIORESAL) 10 MG tablet Take 1 tablet by mouth 2 (two) times a day. 4 Active clobetasol (TEMOVATE) 0.05 % ointment See Instructions, 1 application Topically 2 times a week, # 30 Gm, 0 Refills, Maintenance, 06/06/21 14:36:00 EDT, Ointment, [id number], 1 application Topically 2 times a week, 160.1, cm, 06/02/21 15:02:00 EDT, Height, 64.6, kg, 12/20/20 13:37:... 1 Active ketoconazole (NIZORAL) 2 % shampoo APPLY TO SCALP TWICE PER WEEK, LEAVE ON 5 MINUTES THEN WASH OFF 4 Active traMADoL (ULTRAM) 50 mg tablet Take 1 tablet by mouth every morning. 4 Active Active Problems Patient Care Coordination No te Formatting of this note migh t be different from the original. Height 160.7cm no shoes 12/2023 Problem Noted Date Diagnosed Date Hereditary hemochromatosis 11/26/2018 Encounters Date Type Department Care Team Description 05/12/2025 11:45 AM EDT Office Visit [address] [address] Michele Pal PA Truehart, Jane, TAHIRA Strain of right shoulder, subsequent encounter (Primary Dx) 05/09/2025 3:00 PM EDT Office Visit [address] [address] Michele Pal PA Menard-Johnsto n, Erin, PT Strain of right shoulder, subsequent encounter (Primary Dx) 05/05/2025 11:00 AM EDT Office Visit [address] [address] Michele Pal PA Truehart, Jane, TAHIRA Strain of right shoulder, subsequent encounter (Primary Dx) 04/28/2025 11:15 AM EDT Office Visit [address] [address] Michele Pal PA Moos, Lisa, MUSEUM TOUR GUIDE Strain of right shoulder, subsequent encounter (Primary Dx) 04/25/2025 11:00 AM EDT Office Visit [address] [address] Michele Pal PA Truehart, Jane, MUSEUM TOUR GUIDE Strain of right shoulder, subsequent encounter (Primary Dx) 04/21/2025 11:15 AM EDT Office Visit [address] [address] Michele Pal PA MoosHelen, MUSEUM TOUR GUIDE Strain of right shoulder, subsequent encounter (Primary Dx) 04/18/2025 11:30 AM EDT Office Visit [address] [address] Michele Pal PA Menard-Johnsto n, Erin, PT Strain of right shoulder, subsequent encounter (Primary Dx) 04/11/2025 11:45 AM EDT Office Visit [address] [address] Michele Pal PA Truehart, Jane, MUSEUM TOUR GUIDE Strain of right shoulder, subsequent encounter (Primary Dx) 04/06/2025 10:45 AM EDT Office Visit [address] [address] Michele Pal PA Menard-Johnsto n, Erin, PT Strain of right shoulder, subsequent encounter (Primary Dx) 04/06/2025 Plan of Care Documentation [address] [address] 04/04/2025 Transcribe Orders [address] [address] Michele Pal PA Encounter for rehabilitation (Primary Dx) from Last 3 Months Immunizations Immunization Administration Dates Next Due COVID-19 (Pre-07/21) Pfizer Vaccine, Bivalent 12+ 07/31/2022 COVID-19 (Pre-07/21) Pfizer Vaccine, mRNA, PF 11/03/2020,10/13/2020,10/06/2020 COVID-19 (Pre-07/21) Pfizer Vaccine, mRNA, manuel-sucrose, PF 02/15/2022 INFLUENZA, SPLIT VIRUS, TRIVALENT PF 06/19/2017, 07/13/2015 INFLUENZA, SPLIT VIRUS, TRIV ALENT W/ PRESERVATIVE IM 06/19/2016,06/24/2014,06/19/2011 Influenza High-Dose Quadriva lent Preservative Free IM 07/24/2023 Influenza Quadrivalent Adjuv anted Preservative Free IM 08/27/2021,07/25/2020 Influenza Quadrivalent Preservative Free IM 05/31,07/08/2019 Influenza, whole 07/15/2019 Pneumococcal conjugate PCV20 01/02/2023 Td (adult),2 Lf Tetanus Toxo id, PF, Adsorbed 10/19/2020 Td, unspecified formulation 03/17/2009 Zoster recombinant 10/08/2021,07/12/2021 Social History Tobacco Use Types Packs/Day Years Used Date Smoking Tobacco: Former Smokeless Tobacco: Never Alcohol Use Standard Drinks/Week Comments Yes 0 (1 standard drink = 0.6 oz pur e alcohol) 1 or less per week Education Answer Date Recorded Are you interested in more education? Not on douglas e 01/24/2023 Are you concerned about learning? Not on file 01/24/2023 No 01/24/2023 No 01/24/2023 Digital Access Answer Date Recorded No 02/20/2023 No 02/20/2023 Reliable internet access at home? Not on file 02/20/2023 Device with a working camera? Not on file Comments Unknown Sex and Gender Information Value Date Recorded Sex Assigned at Not on file Legal Sex Female 9:57 PM EDT Gender Identity Not on file Sexual Orientation Not on file Last Filed Vital Signs Vital Sign Reading Time Taken Comments Blood Pressure 135/87 02/02/2025 10:53 AM EDT Pulse 68 02/02/2025 10:53 AM EDT Temperature 36.4 C (97.5 F) 02/02/2025 10:53 AM EDT Respiratory Rate 16 02/18/2024 1:20 PM EDT Oxygen Saturation 99% 02/02/2025 10: 53 AM EDT Inhaled Oxygen Concentration - - Weight 63.9 kg (140 lb 12.8 oz) 025 10:53 AM EDT Height 160.7 cm (5' 3.27 ) 02/02/2025 1 0:53 AM EDT Body Mass Index 24.73 02/02/2025 10:53 AM EDT Plan of Treatment Upcoming Encounters Date Type Department Care Team (Late st Contact Info) Description 06/21/2025 1:30 PM EDT Office Visit [facility] [address] [place] [address] Michele Pal PA [address] [place] [address] Sabrina Glover, PT [address] [place] [address] [email or web address] 08/08/2025 11:10 AM EST Appointment [facility] [address] [place] [address] Angy Amado PA-C [address] [place] [address] 02/08/2026 1:00 PM EDT Appointment [facility] [address] [place] [address] Angy Amado PA-C [address] [place] [phone] 02/08/2026 2:00 PM EDT Office Visit [facility] [address] [place] [address] Angy Amado PA-C [address] [place] [address] Health Maintenance Due Date Last Done Comments LIPID PANEL 1953 DEPRESSION SCREENING 1965 SMOKING Hx and SMOKELESS TOBACCO SCREENING 1966 HEPATITIS C SCREENING 12/24/1971 COLONOSCOPY 1998 FIT TEST 1998 FOBT 1998 SIGMOIDOSCOPY 1998 VIRTUAL COLONOSCOPY 1998 MAMMOGRAM 04/29/2016 04/29/2014 OSTEOPOROSIS SCREENING INITIAL (ONE-TIME) 2018 INFLUENZA VACCINE (#1) 2025 , 07/24/2023, 06/27/2022, Additional history exists COVID-19 VACCINE ( season) 2025 08/04/2024, 07/04/2023, 07/31/2022, Additional history exists COLOGUARD 05/24/2027 05/24/2024 COLORECTAL CANCER SCREENING 05/24/2027 Adult Td,Tdap Booster 10/19/2030 10/19/2020, 009 ZOSTER VACCINES Completed 10/08/2021, 07/12/2021 PNEUMOCOCCAL VACCINES (50+ years) Completed 09/10/2024, 01/02/2023 RSV VACCINE Completed 09/15/2024 HEPATITIS A VACCINES Aged Out No long er eligible based on patient's age to complete this topic HIB VACCINES Aged Out No longer eligi ble based on patient's age to complete this topic MENINGOCOCCAL VACCINES (ACWY) Aged Out No longer eligible based on patient's age to complete this topic MENINGOCOCCAL VACCINES (B) Aged Out N o longer eligible based on patient's age to complete this topic Medical Devices Not on file Insurance MEDICARE PART A & B [facility] Pia [facility] MEDICARE PART A & B [facility] MEDICARE SUPPLEMENT Pia [facility] MEDICARE PART A & B [employer] EXTENSION MEDICARE SUPPLEMENT MEDICARE PART A & B [employer] EXTENSION MEDICARE SUPPLEMENT MEDICARE PART A & B [facility] MEDICARE SUPPLEMENT [place] MEDICARE PART A & B [facility] EXTENSION MEDICARE SUPPLEMENT MEDICARE PART A & B [facility] EXTENSION MEDICARE SUPPLEMENT MEDICARE PART A & B [employer] MEDICARE SUPPLEMENT MEDICARE PART A & B [employer]ION MEDICARE SUPPLEMENT Care Teams Podiatric Physician Relationship Specialty Start Date End Date Michele Pal PA [address] [place] [address] PCP - General 08/26/22 Angy Amado PA-C [address] [place] [email or web address] Physician Assistant Strength Coach Hematology 06/20/22 Additional Source Comments The information contained in this document represents components of the legal health record. It is not the complete legal health record.[facility]
--- OUTSIDE RECORDS SUMMARY | 2025-06-10 11:08 | XMS_ITS | Encounter Summary ---
Author Organization [facility] Address [address] [place] [address] Phone Care Team Providers Care Legal Biller Name Role Phone Brodie Self DO Primary Care Provider Gerri Rivera DO Unavailable [phone] Brodie Self DO Unavailable [phone] Cassi Whitlye VASCULAR PHYSICIAN Unavailable [phone] Ayah Sosa MD Unavailable [phone] Juan David Ramos MD Primary Care Provide r Yuan Winslow MD Unavailable Sarah Farley MD Unavailable Philip Mendez MD, PhD Unavailable [phone] Angy Amado-C Unavailable Michele Pal Primary Care Provider + Encounter Details Date Type Department Care Team (Late st Contact Info) Description 09/15/2018 Procedure Pass [facility] Endoscopy Admitting Dept Virtual Department [address] [place] [address] Social History Tobacco Use Types Packs/Day Years Used Date Smoking Tobacco: Never Assessed Comments Unknown Sex and Gender Information Value Date Recorded Sex Assigned at Not on file Legal Sex Female 9:57 PM EDT Gender Identity Not on file Sexual Orientation Not on file documented as of this encounter Plan of Treatment Upcoming Encounters Date Type Department Care Team (Late st Contact Info) Description 06/21/2025 1:30 PM EDT Office Visit [facility] Services [address] [place] [address] Michele Pal PA [address] [place] [address] Sabrina Glover, PT 10 [place] [address] [email or web address] 08/08/2025 11:10 AM EST Appointment [facility] Laboratory [address] [place] [address] Angy Amado PA-C [address] [place] [address] 02/08/2026 1:00 PM EDT Appointment [facility] Laboratory [address] [place] [address] Angy Amado PA-C [address] [place] [address] 02/08/2026 2:00 PM EDT Office Visit [facility] at [address] [address] Angy Amado PA-C [address] [place] [address] documented as of this encounter Visit Diagnoses Not on filedocumented in this encounter Care Teams Legal Biller Relationship Specialty Start Date End Date Brodie Self DO [address] [place] [address] PCP - General 07/17/17 10/21/18 Juan David Ramos MD [address] [address] PCP - General Family Medicine 10/22/18 08/25/22 Michele Pal PA [address] [place] [address] PCP - General 08/26/22 Gerri Rivera DO [address] [place] [address] [email or web address] Historical LMR Provider 07/20/17 08/16/20 Brodie Self DO 22 [place] [address] [email or web address] Historical LMR Provider 07/20/17 10/06/21 Cassi Whitley VASCULAR PHYSICIAN [address] [place] [address] [email or web address] Historical LMR Provider 07/20/17 10/06/21 Ayah Sosa MD [address] [place] [id number] Historical LMR Provider 07/20/17 2 Yuan Winslow MD [address] [address] [email or web address] Historical LMR Provider Hematology and Oncology 08/17/20 10/14/21 Sarah Farley MD [address] [place] [address] [email or web address] Primary Oncologist Hematology and Oncology 05/10/21 10/16/21 Philip Mendez MD, PhD [address] [address] [email or web address] Consulting Provider Hematology 11/28/21 06/19/22 Angy Amado PA-C [address] [place] [address] [email or web address] Physician Manager Small Business Hematology 06/20/22 documented as of this encounter Additional Source Comments The information contained in this document represents components of the legal health record. It is not the complete legal health record.[facility]
--- OUTSIDE RECORDS SUMMARY | 2025-06-10 11:08 | XMS_ITS | Encounter Summary ---
Author Organization [facility] Address [address] [facility] [address] [place] [address] Phone Care Team Providers Care Farm Operations Manager Name Role Phone AramisBrodie Joseline ROD Unavailable [phone] Cassi Whitley PUBLIC SAFETY POLICE Unavailable [phone] Ayah Sosa MD Unavailable [phone] Juan David Ramos MD Primary Care Provide r Yuan Winslow MD Unavailable Sarah Farley MD Unavailable Philip Mendez MD, PhD Unavailable Angy Amado-C Unavailable [phone] Michele Pal Primary Care Provider + Encounter Details Date Type Department Care Team (Late st Contact Info) Description 08/21/2020 Procedure Pass [facility], [address] [address] Social History Tobacco Use Types Packs/Day Years [...] Description 06/21/2025 1:30 PM EDT Office Visit [facility] Services 12 [place] [address] Michele Pal PA [address] [place] [address] Sabrina Glover, PT [address] [place] [address] [email or web address] 08/08/2025 11:10 AM EST Appointment [facility] Laboratory [address] [place] [address] Angy Amado PA-C [address] [place] [address] 02/08/2026 1:00 PM EDT Appointment [facility] Laboratory [address] [place] [address] Angy Amado PA-C [address] [place] [address] 02/08/2026 2:00 PM EDT Office Visit [facility] at [address] [address] Angy Amado PA-C [address] [place] [email or web address] documented as of this encounter Visit Diagnoses Not on filedocumented in this encounter Care Teams Farm Operations Manager Relationship Specialty Start Date End Date Juan David Ramos MD [address] [address] PCP - General Family Medicine 10/22/18 08/25/22 Michele Pal PA [address] [place] [address], [place] [address] PCP - General 08/26/22 Brodie Self DO [address] [place] [address] [email or web address] Historical LMR Provider 07/20/17 10/06/21 Cassi Whitley NP [address] [place] [address] [email or web address] Historical LMR Provider 07/20/17 10/06/21 Ayah Sosa MD [address] [address] Historical LMR Provider 07/20/17 2 Yuan Winslow MD [address] [address] [email or web address] Historical LMR Provider Hematology and Oncology 08/17/20 10/14/21 Sarah Farley MD [address] [place] [address] [email or web address] Primary Oncologist Hematology and Oncology 05/10/21 10/16/21 Philip Mendez MD, PhD [address] [place] [address] [email or web address] Consulting Provider Hematology 11/28/21 06/19/22 Angy Amado PA-C 30 [place] [address] [email or web address] Physician Electrical Drafter Hematology 06/20/22 documented as of this encounter Additional Source Comments The information contained in this document represents components of the legal health record. It is not the complete legal health record.[facility]
--- OUTSIDE RECORDS SUMMARY | 2025-06-10 11:08 | XMS_ITS | Encounter Summary ---
Author Organization [facility] Address [address] [place] [address] Phone Care Team Providers Care Dialysis Technician Name Role Phone Gerri Rivera DO Unavailable [phone] Brodie Self DO Unavailable [phone] Cassi Whitley FACILITY MAINTENANCE MECHANIC Unavailable [phone] Ayah Sosa MD Unavailable [phone] Juan David Ramos MD Primary Care Provide r Yuan Winslow MD Unavailable Sarah Farley MD Unavailable Philip Mendez MD, PhD Unavailable Angy Amado-C Unavailable [phone] Michele Pal Primary Care Provider + Encounter Details Date Type Department Care Team (Late st Contact Info) Description 11/10/2018 Procedure Pass [facility] Endoscopy Admitting Dept Virtual Department [address] [place], [place] [phone] Social History Tobacco Use Types Packs/Day Years [...] Description 06/21/2025 1:30 PM EDT Office Visit [facility] Rehabilitation Services [address] [place] [address] Michele Pal PA [address] [place] [address] Sabrina Glover, PT 10 [place] [address] [email or web address] 08/08/2025 11:10 AM EST Appointment [facility] Laboratory [address] [place] [address] Angy Amado PA-C [address] [place] [address] 02/08/2026 1:00 PM EDT Appointment [facility] Laboratory [address] [place] [address] Angy Amado PA-C [address] [place] [email or web address] 02/08/2026 2:00 PM EDT Office Visit [facility] at [facility] [address] [place] [address] Angy Amado PA-C [address] [place] [address] documented as of this encounter Visit Diagnoses Not on filedocumented in this encounter Care Teams Dialysis Technician Relationship Specialty Start Date End Date Juan David Ramos MD [address] [address] PCP - General Family Medicine 10/22/18 08/25/22 Michele Pal PA [address] [place] [address] PCP - General 08/26/22 Gerri Rivera DO [address] [place] [address] [email or web address] Historical LMR Provider 07/20/17 08/16/20 Brodie Self DO 22 [place] [address] [email or web address] Historical LMR Provider 07/20/17 10/06/21 Cassi Whitley FACILITY MAINTENANCE MECHANIC [address] [place] [address] [email or web address] Historical LMR Provider 07/20/17 10/06/21 Ayah Sosa MD [address] [place] [address] Historical LMR Provider 07/20/17 2 Yuan Winslow MD [address] [address] [email or web address] Historical LMR Provider Hematology and Oncology 08/17/20 10/14/21 Sarah Farley MD [address] [place] [address] [email or web address] Primary Oncologist Hematology and Oncology 05/10/21 10/16/21 Philip Mendez MD, PhD [address] [place] [address], [place] [address] [email or web address] Consulting Provider Hematology 11/28/21 06/19/22 Angy Amado PA-C [address] [place] [address] [email or web address] Physician Atg Java Developer Hematology 06/20/22 documented as of this encounter Additional Source Comments The information contained in this document represents components of the legal health record. It is not the complete legal health record.[facility]
--- OUTSIDE RECORDS SUMMARY | 2025-06-10 11:08 | XMS_ITS | Encounter Summary ---
Author Organization [facility] Address [address] [place] [address] Phone Care Team Providers Care Machine Precision Engraver Name Role Phone Gerri Rivera DO Unavailable [phone] Brodie Self DO Unavailable [phone] Cassi Whitley DUST COLLECTOR ATTENDANT Unavailable [phone] Ayah Sosa MD Unavailable [phone] Juan David Ramos MD Primary Care Provide r Yuan Winslow MD Unavailable Sarah Farley MD Unavailable Philip Mendez MD, PhD Unavailable Angy Amado-C Unavailable [phone] Michele Pal Primary Care Provider + Encounter Details Date Type Department Care Team (Latest Contact Info) Description 05/17/2019 Transcribe Orders [facility] Laboratory 30 [place], [place] [id number] Gerri Rivera DO [address] [place] [address] [email or web address] Screening for unspecified condition (Primary Dx) Social History Tobacco Use Types Packs/Day Years [...] Description 06/21/2025 1:30 PM EDT Office Visit [facility] Rehabilitation Services 12 [place] [address] Michele Pal PA [address] [place] [address] Sabrina Glover, PT 10 [place] [address] [email or web address] 08/08/2025 11:10 AM EST Appointment [facility] Laboratory [address] [place] [address] Angy Amado PA-C [address] [place] [address] 02/08/2026 1:00 PM EDT Appointment [facility] Laboratory [address] [place] [address] Angy Amado PA-C [address] [place] [address] 02/08/2026 2:00 PM EDT Office Visit [facility] at [address] [address] Angy Amado PA-C [address] [place] [address] documented as of this encounter Visit Diagnoses Diagnosis Screening for unspecified condition- Primary documented in this encounter Care Teams Machine Precision Engraver Relationship Specialty Start Date End Date Juan David Ramos MD [address] [address] PCP - General Family Medicine 10/22/18 08/25/22 Michele Pal PA [address] [place] [address] PCP - General 08/26/22 Gerri Rivera DO [address] [place] [address] [email or web address] Historical LMR Provider 07/20/17 08/16/20 Brodie Self DO 22 [place] [address] [email or web address] Historical LMR Provider 07/20/17 10/06/21 Cassi Whitley DUST COLLECTOR ATTENDANT [address] [place] [address] [email or web address] Historical LMR Provider 07/20/17 10/06/21 Ayah Sosa MD [address] [place] [address] Historical LMR Provider 07/20/17 2 Yuan Winslow MD [address] [address] [email or web address] Historical LMR Provider Hematology and Oncology 08/17/20 10/14/21 Sarah Farley MD [address] [place] [address] [email or web address] Primary Oncologist Hematology and Oncology 05/10/21 10/16/21 Philip Mendez MD, PhD [address] [address] [email or web address] Consulting Provider Hematology 11/28/21 06/19/22 Angy Amado PA-C [address] [place] [address] [email or web address] Physician Supervisor Customer Records Division Hematology 06/20/22 documented as of this encounter Additional Source Comments The information contained in this document represents components of the legal health record. It is not the complete legal health record.[facility]
== END 2025-06-10 09:54 | disposition home or self-care (01) ==
LOC: HO.US 09:53
PROVIDERS: PCP Physician Assistant; Visit Provider Nurse Practitioner
DX: R14.0 Abdominal distension (gaseous) (principal)
CPT/HCPCS: 76700

== ENCOUNTER → 2025-06-10 09:56 | Outpatient (BNV) | payer MEDICARE, OTHER, SELFPAY | PROVIDERS: PCP Physician Assistant; Visit Provider Radiology Diagnostic Radiology | DX: K76.0 Fatty (change of) liver, not elsewhere classified (principal) | CPT/HCPCS: 76700 ==

== ENCOUNTER 2025-06-20 13:39 | Outpatient (AMB) | payer MEDICARE, OTHER, SELFPAY ==
--- NOTE | 2025-06-20 13:54 | MHC.OFFVIS ---
Intake Visit Reasons: Right hip pain Intake Note: Ema is a 69 year old female who presents with complaints of pain along the posterior aspect of her right hip. The patient states that she did have an injection given into her right SI joint in [place] in December of this year. The patient states that she got fairly good relief from the injection initially but the relief only lasted a few days. She denies any groin pain. She was considering undergoing right SI joint fusion surgery but because the injection did not give her lasting relief she is hesitant to undergo surgery. Allergies No Known Allergies (No Known Allergies*) Allergy (Verified 06/20/25 14:01) Medication List - Last Reconciled 06/20/25 by Irvin Zamora MD buspirone 60 mg PO BEDTIME calcium carbonate-vitamin D3 600 mg-12.5 mcg (500 unit) (Calcium with Vit D3) caps PO dicyclomine 10 mg PO QID escitalopram oxalate 10 mg (1/2 x 20 mg) PO DAILY 90 days estradiol 0.01%(0.1mg/gram) (Estrace) 1 g vaginal 2XW PRN fjsbxd-ptphdejp-nmkelok 24,000-76,000 -120,000 unit (Creon) 2 caps PO BID 30 days omega-3 fatty acids (Fish Oil Concentrate) 1,000 mg PO DAILY turmeric mg PO vitamin B complex 1 tab PO DAILY walker (Ultra-Light Rollator misc) As directed [facility] Medical History (Updated 04/04/25 @ 15:10 by Michele Pal PA-C) Right shoulder pain Colon cancer screening History of measles, mumps, rubella (MMR) vaccination unknown Bilateral hip pain Pain of right sacroiliac joint Annual physical exam Right hip pain Back pain Acute low back pain Vesicular rash Encounter to establish care Screening for diabetes mellitus (DM) Screening for hypothyroidism Screening for hypercholesterolemia COVID-19 Osteoporosis Hemochromatosis No known health problems Surgical History History of bladder suspension procedure History of esophagogastroduodenoscopy (EGD) H/O colonoscopy Family History Other Mental health disorder Social History Household Members Other:: partner Housing: House Alcohol intake: current Alcohol intake frequency: 0-2 drinks per day Alcohol type: beer Patient Tobacco Use Status: Former Tobacco user Cigarettes Per Day: 20 Years Smoked: 15 e-Cigarette/Vaping Use: Never Used Second Hand Smoke Exposure: No Advance Directives Date on File: 10/08/21 service: No Current occupational status: retired Cognitive needs: No Hearing needs: No Vision needs: Yes (Glasses) Physical Exam Extrem Other: Right hip examination shows almost full range of motion when compared to her left hip, minimal tenderness over bursa, tenderness over her right SI joint Results Reviewed Results Reviewed: MRI of the patient's right hip shows mild diffuse degenerative changes, a small labral tear, no acute bony abnormalities Assessment & Plan Assessment & Plan (1) Chronic SI joint pain: Code(s): M53.3 - Sacrococcygeal disorders, not elsewhere classified; G89.29 - Other chronic pain Category: Medical (2) Pain of right hip: Code(s): M25.551 - Pain in right hip Plan Ms. Pepper presents with pain along the posterior aspect of her right hip most likely due to sacroiliitis. Thus, I will have her evaluated in our pain management department. The patient may be a candidate for a another injection which could be both diagnostic and therapeutic. The patient will follow-up as instructed. Based on the mild degenerative changes on her right hip MRI do not feel that total hip replacement surgery is indicated at this time. Feel free to call me at any time should questions regarding her orthopedic management arise. I spent 20 minutes in reviewing the patient's records and imaging studies, seeing the patient and documenting in the medical record. Orders: Referrals Pain Management Referral G89.29 - Other chronic pain, M53.3 - Sacrococcygeal disorders, not elsewhere classified Coding Level of Care Code Est Pt Level 3 (62197) Complex EM visit Add On G2211 Diagnoses Chronic SI joint pain M53.3; G89.29 Pain of right hip M25.551
== END 2025-06-20 14:21 | disposition home or self-care (01) ==
LOC: HO.HOS 13:40
PROVIDERS: PCP Physician Assistant; Visit Provider Orthopaedic Surgery
DX: M53.3 Sacrococcygeal disorders, not elsewhere classified (principal); G89.29 Other chronic pain; M25.551 Pain in right hip
CPT/HCPCS: 99213; G2211

== ENCOUNTER → 2025-06-20 13:39 | Outpatient (BNVA) | payer MEDICARE, OTHER, SELFPAY | PROVIDERS: PCP Physician Assistant; Visit Provider Orthopaedic Surgery | DX: M53.3 Sacrococcygeal disorders, not elsewhere classified (principal); M25.551 Pain in right hip; G89.29 Other chronic pain | CPT/HCPCS: 99212 ==

== ENCOUNTER 2025-07-01 12:26 | Outpatient (AMB) | payer MEDICARE, OTHER, SELFPAY ==
--- NOTE | 2025-07-01 12:29 | MHC.OFFVIS ---
Vital Signs 07/01/25 12:35 Height 5 ft 3 in Weight 133 lb BMI 23.6 BP 134/60 Blood Pressure Location Rt radial Position Sitting Pulse 60 Pulse Source Pulse Oximeter Pulse Oximetry (%) 99 Oxygen Delivery Method Room Air Intake Visit Reasons: 8w Intake Note: Est pt for mgmt of IBS. CC; C.O. bloating and frequent irregular BMs. Pt reports recently starting new probiotic which she has some questions about. Allergies No Known Allergies (No Known Allergies*) Allergy (Verified 07/01/25 12:33) HPI HPI 8w: Details: Assessment & Plan (1) Abdominal bloating: Code(s): R14.0 - Abdominal distension (gaseous) Category: Medical (2) Diarrhea: Code(s): R19.7 - Diarrhea, unspecified Category: Medical Plan We review the results. So far, the bentyl did not help her but the FODMAP and creon is working for her. She was doing the FODMAP diet but then just started adding foods back in . She was doing well until she had a kale sauce and became very bloated. She also stopped drinking beer as well. She has lost 8 lbs. We discuss that it could be the kale or even the garlic causing the problem. She was only taking 1 - 2 creon a day. I encourage her to take more, more frequently in a day. Had a nurse call her in stead of reacting just via the portal. She likes to speak with live people. She is encouraged with her progress. Her stooling has improved from when we 1st started working together. ROV 8 weeks. TODAY'S VISIT [facility] Medical History Right shoulder pain Colon cancer screening History of measles, mumps, rubella (MMR) vaccination unknown Bilateral hip pain Pain of right sacroiliac joint Annual physical exam Right hip pain Back pain Acute low back pain Vesicular rash Encounter to establish care Screening for diabetes mellitus (DM) Screening for hypothyroidism Screening for hypercholesterolemia COVID-19 Osteoporosis Hemochromatosis No known health problems Surgical History History of bladder suspension procedure History of esophagogastroduodenoscopy (EGD) H/O colonoscopy Family History Other Mental health disorder Social History Household Members Other:: partner Housing: House Alcohol intake: current Alcohol intake frequency: 0-2 drinks per day Alcohol type: beer Patient Tobacco Use Status: Former Tobacco user Cigarettes Per Day: 20 Years Smoked: 15 e-Cigarette/Vaping Use: Never Used Second Hand Smoke Exposure: No Advance Directives Date on File: 10/08/21 service: No Current occupational status: retired Cognitive needs: No Hearing needs: No Vision needs: Yes (Glasses) Review of Systems Const Denies fatigue, Denies fever(s), Denies night sweats, Denies poor appetite and Denies weight loss Eyes Details: glasses Reports requires corrective lenses ENT Reports Normal hearing present, Denies dental pain, Denies dysphagia, Denies hearing loss, Denies mouth pain, Denies odynophagia, Denies throat swelling, Denies tongue swelling and Reports other (Dentition adequate) Card Reports no additional complaints Resp Reports no additional complaints GI Details: Denies abdominal pain, Denies melena, Reports bloating, Denies hematochezia, Reports constipation, Denies GI cramping, Denies dysphagia, Denies excessive flatus, Denies early satiety, Denies heartburn, Reports diarrhea, Denies nausea, Denies odynophagia, Denies vomiting and Denies hematemesis Skin/Breast Denies pruritus, Denies lesions, Denies rash and Denies jaundice Neuro Reports Normal hearing present and Denies Abnormal speech present Endo Denies fatigue Aller/Immun Denies throat swelling and Denies tongue swelling Physical Exam Vital Signs: Last Vital Signs Pulse 60 07/01/25 12:35 BP 134/60 07/01/25 12:35 Pulse Ox 99 07/01/25 12:35 Oxygen Delivery Method Room Air 07/01/25 12:35 BMI result Body Mass Index 23.6 Const General: cooperative, no acute distress, well developed and well groomed Nutritional Appearance: average body habitus and well nourished Orientation/consciousness: oriented to person, oriented to place and oriented to time Limitations: No language barrier HEENT Head: Yes normocephalic and Yes atraumatic Eyes General: appearance normal, both eyes and all related structures Pupils: Equal, round and reactive pupils present Neck Neck: Yes normal visual inspection and Yes no lymphadenopathy Thyroid: Thyroid normal Resp Effort & Inspection: normal respiratory effort and able to speak in complete sentences Auscultation: clear to auscultation bilaterally Cardio Rate: regular rate Rhythm: regular rhythm Heart sounds: Normal, physiologic split S2 sound present Peripheral pulses: radial pulses present and posterior tibial pulses present GI Inspection: Yes distended and No Abdominal panniculus present Palpation (GI): Soft to palpation, nontender, no guarding, not rigid and No hepatosplenomegaly present Percussion: Yes normal to percussion Auscultation: normal bowel sounds Rectal Exam - Female: deferred Skin General skin exam: no rashes or lesions noted, turgor normal, skin not dry, no jaundice, No spider nevi and no striae Rashes: no rashes Nails: normal Neuro General: oriented to person, oriented to place and oriented to time Cranial nerves: Yes Equal, round and reactive pupils present and Yes Normal hearing present Speech: No Abnormal speech present Extrem General: Yes normal to inspection, No clubbing, No cyanosis and No edema Psych Appearance: grossly normal and well kempt Mental Status: mental status grossly normal Speech and movement: Normal speech and movement present Affect: normal affect Attitude: cooperative Thought process: Normal thought process present and not confabulating Thought content: Normal thought content present Insight: Fair insight present (Psych) and Limited insight present (Psych) Judgement: Fair judgement present (Psych) and Limited judgement present (Psych) Assessment & Plan Assessment & Plan (1) Diarrhea: Code(s): R19.7 - Diarrhea, unspecified Category: Medical (2) Abdominal bloating: Code(s): R14.0 - Abdominal distension (gaseous) Category: Medical Plan - The patient is a 69-year-old female here for follow-up on exocrine pancreatic insufficiency.. - She initially noted adverse reactions, specifically bloating, upon increasing Creon f to 2 pills twice a day. She has done better by taking 1 in the morning 1 at noon and 1 in the evening. I encouraged her that this is fine and she can save an extra pill in case she has a night neck. I say this because she had a yogurt in the evening that seem to promote bloating. - A recent dietary incident involving yogurt and syrup without Creon resulted in discomfort and bloating. - Consistent dietary adjustments have enabled regular morning and afternoon meals, aligning with a favorable weight reduction. - Recent probiotic usage resulted in diarrhea and increased bloating, despite reduced dosages over the past five days. I have encouraged her to stop this as I think her body is seeing it as an invading microbe. - Findings from a previous ultrasound were concerning for fatty liver disease, which could be metabolic or could be related to her long time drinking of relatively strong micro bruit beers on a daily basis. - She decreased her beer intake substantially, as I did point out to her that the carbonation likely was not helpful for her bloating condition. - She suspects a familial link in exocrine pancreatic insufficiency due to her children's digestive problems. Overall she is happy with her progress, she is reporting some early satiety and I am uncertain if this is because there is an underlying disease or she simply was not eating well for a long time. We did discuss a potential gastric emptying study but she is not inclined to have it at this time. Return office visit in 2 months Coding Level of Care Code Est Pt Level 3 (66282) Diagnoses Diarrhea R19.7 Abdominal bloating R14.0
[2025-07-01 12:35] VITALS: BP 134/60; PULSE 60; O2SAT 99; BMI 23.6
--- OUTSIDE RECORDS SUMMARY | 2025-07-01 13:09 | XMS_ITS | Clinical Summary ---
Author Organization [facility] Address [address] [place] [address] Phone Care Team Providers Care Double Needle Operator Name Role Phone Angy Amado PA-C Unavailable [phone] Michele Pal Primary Care Provider + Allergies [...] Encounters Date Type Department Care Team Description 06/21/2025 1:30 PM EDT Office Visit [address] [address] Michele Pal PA Menard-Johnsto n, Erin, PT Strain of right shoulder, subsequent encounter (Primary Dx) 05/12/2025 11:45 AM EDT Office Visit [address] [address] Michele Pal PA Truehart, Jane, TAHIRA Strain of right shoulder, subsequent encounter (Primary Dx) 05/09/2025 3:00 PM EDT Office Visit [address] [address] Michele Pal PA Menard-Johnsto n, Erin, PT Strain of right shoulder, subsequent encounter (Primary Dx) 05/05/2025 11:00 AM EDT Office Visit [address] [address] Michele Pal PA Truehart, Jane, DEPARTMENT ASSISTANT Strain of right shoulder, subsequent encounter (Primary Dx) 04/28/2025 11:15 AM EDT Office Visit [address] [address] Michele Pal PA Moos, Lisa, DEPARTMENT ASSISTANT Strain of right shoulder, subsequent encounter (Primary Dx) 04/25/2025 11:00 AM EDT Office Visit [address] [address] Michele Pal PA Truehart, Jane, DEPARTMENT ASSISTANT Strain of right shoulder, subsequent encounter (Primary Dx) 04/21/2025 11:15 AM EDT Office Visit [address] [address] Michele Pal PA Moos, Lisa, DEPARTMENT ASSISTANT Strain of right shoulder, subsequent encounter (Primary Dx) 04/18/2025 11:30 AM EDT Office Visit [address] [address] Michele Pal PA Menard-Johnsto n, Erin, PT Strain of right shoulder, subsequent encounter (Primary Dx) 04/11/2025 11:45 AM EDT Office Visit [address] [address] Michele Pal PA Truehart, Jane, DEPARTMENT ASSISTANT Strain of right shoulder, subsequent encounter (Primary Dx) 04/06/2025 10:45 AM EDT Office Visit [address] [address] Michele Pal PA Menard-Johnsto n, Erin, PT Strain of right shoulder, subsequent encounter (Primary Dx) 04/06/2025 Plan of Care Documentation [address] [address] 04/04/2025 Transcribe Orders [address] [address] Michele Pal PA Encounter for rehabilitation (Primary Dx) from Last 3 Months Immunizations Immunization Administration Dates Next Due COVID-19 (Pre-07/21) Pfizer Vaccine, Bivalent 12+ 07/31/2022 COVID-19 (Pre-07/21) Pfizer Vaccine, mRNA, PF 11/03/2020,10/13/2020,10/06/2020 COVID-19 (Pre) Pfizer Vaccine, mRNA, manuel-sucrose, PF 02/15/2022 INFLUENZA, [...] Care Team (Late st Contact Info) Description 08/08/2025 11:10 AM EST Appointment [facility] [address] [place] [address] Angy Amado PA-C [address] [place] [phone] [email or web address] 02/08/2026 1:00 PM EDT Appointment [facility] [address] [place] [address] Angy Amado PA-C [address] [place] [phone] [email or web address] 02/08/2026 2:00 PM EDT Office Visit [facility] at [address] [address] Angy Amado PA-C [address] [place] [phone] Health Maintenance Due Date Last Done Comments LIPID PANEL 1953 DEPRESSION SCREENING 1965 SMOKING Hx and SMOKELESS TOBACCO SCREENING 1966 HEPATITIS C SCREENING 12/24/1971 COLONOSCOPY 1998 FIT TEST 1998 FOBT 1998 SIGMOIDOSCOPY 1998 VIRTUAL COLONOSCOPY 1998 MAMMOGRAM 04/29/2016 04/29/2014 OSTEOPOROSIS SCREENING INITIAL (ONE-TIME) 2018 INFLUENZA VACCINE (#1) 2025 , 07/24/2023, 06/27/2022, Additional history exists COVID-19 VACCINE (2023- season) 2025 08/04/2024, 07/04/2023, 07/31/2022, Additional history [...] file Insurance MEDICARE PART A & B [facility] EXTENSION MEDICARE SUPPLEMENT MEDICARE PART A & B [facility] MEDICARE SUPPLEMENT [place] MEDICARE PART A & B [facility]ION MEDICARE SUPPLEMENT MEDICARE PART A & B [facility] EXTENSION MEDICARE SUPPLEMENT MEDICARE PART A & B [employer] MEDICARE SUPPLEMENT MEDICARE PART A & B [employer] EXTENSION MEDICARE SUPPLEMENT [place] MEDICARE PART A & B [facility] MEDICARE SUPPLEMENT [place] MEDICARE PART A & B [employer] EXTENSION MEDICARE SUPPLEMENT Results [place] Address: [address] [address] MEDICARE PART A & B [employer] EXTENSION MEDICARE SUPPLEMENT Care Teams Double Needle Operator Relationship Specialty Start Date End Date Michele Pal PA [address] [place] [address] PCP - General 08/26/22 Angy Amado PA-C [address] [place] [phone] [email or web address] Physician Station Chief Hematology 06/20/22 Additional Source Comments The information contained in this document represents components of the legal health record. It is not the complete legal health record.[facility]
--- OUTSIDE RECORDS SUMMARY | 2025-07-01 13:09 | XMS_ITS | Encounter Summary ---
Author Organization [facility] Address [address] [place] [address] Phone Care Team Providers Care Inspector Casing Name Role Phone AramisBrodie Joseline ROD Unavailable [phone] Cassi Whitley SHIP FASTENER Unavailable [phone] Ayah Sosa MD Unavailable [phone] Juan David Ramos MD Primary Care Provide r Yuan Winslow MD Unavailable Sarah Farley MD Unavailable Philip Mendez MD, PhD Unavailable Angy Amado-C Unavailable Michele Pal Primary Care Provider + Encounter Details Date Type Department Care Team (Late st Contact Info) Description 05/04/2021 Ancillary Orders [facility],Outside Imaging [address] [place] [address] System, Provider Not In, PhD Partners [address] [address] Social History Tobacco Use Types Packs/Day Years [...] Info) Description 08/08/2025 11:10 AM EST Appointment [facility] [address] [place] [address] Angy Amado PA-C [address] [place] [address] 02/08/2026 1:00 PM EDT Appointment [facility] [address] [place] [address] Angy Amado PA-C [address] [place] [address] [email or web address] 02/08/2026 2:00 PM EDT Office Visit [facility] at [address] [address] Angy Amado PA-C [address] [place] [address] documented as of this encounter Results * [...] on filedocumented in this encounter Care Teams Inspector Casing Relationship Specialty Start Date End Date Juan David Ramos MD [address] [address] PCP - General Family Medicine 10/22/18 08/25/22 Michele Pal PA [address] [place] [address] PCP - General 08/26/22 Brodie Self DO [address] [place] [address] [email or web address] Historical LMR Provider 07/20/17 10/06/21 Cassi Whitley NP [address] [place] [address] [email or web address] Historical LMR Provider 07/20/17 10/06/21 Ayah Sosa MD [address] [place] [address] Historical LMR Provider 07/20/17 2 Yuan Winslow MD [address] [address] [email or web address] Historical LMR Provider Hematology and Oncology 08/17/20 10/14/21 Sarah Farley MD [address] [place] [address] [email or web address] Primary Oncologist Hematology and Oncology 05/10/21 10/16/21 Philip Mendez MD, PhD [address] [place] [address] [email or web address] Consulting Provider Hematology 11/28/21 06/19/22 Angy Amado PA-C [address] [place] [address] [email or web address] Physician Maintainability Engineer Hematology 06/20/22 documented as of this encounter Additional Source Comments The information contained in this document represents components of the legal health record. It is not the complete legal health record.[facility]
--- OUTSIDE RECORDS SUMMARY | 2025-07-01 13:09 | XMS_ITS | Encounter Summary ---
Author Organization [facility] Address [address] [place] [address] Phone Care Team Providers Care Bricklayer Apprentice Name Role Phone Gerri Rivera DO Unavailable [phone] Brodie Self DO Unavailable [phone] MAGISTRATE Unavailable [phone] Ayah Sosa MD Unavailable [phone] Juan David Ramos MD Primary Care Provide r Yuan Winslow MD Unavailable Sarah Farley MD Unavailable Philip Mendez MD, PhD Unavailable Angy Amado-C Unavailable [phone] Michele Pal Primary Care Provider + Encounter Details Date Type Department Care Team (Latest Contact Info) Description 05/17/2019 Transcribe Orders [facility] [address] [place], [place] [phone] Gerri Rivera DO [address] [place] [address] [email or web address] Screening for unspecified condition (Primary Dx) Social [...] Info) Description 08/08/2025 11:10 AM EST Appointment [facility] [address] [place] [address] Angy Amado PA-C [address] [place] [address] 02/08/2026 1:00 PM EDT Appointment [facility] [address] [place] [address] Angy Amado PA-C [address] [place] [email or web address] 02/08/2026 2:00 PM EDT Office Visit [facility] at [address] [address] Angy Amado PA-C [address] [place] [address] documented as of this encounter Visit Diagnoses Diagnosis Screening for unspecified condition- Primary documented in this encounter Care Teams Bricklayer Apprentice Relationship Specialty Start Date End Date Juan David Ramos MD [address] [address] PCP - General Family Medicine 10/22/18 08/25/22 Michele Pal PA [address] [place] [address] PCP - General 08/26/22 Gerri Rivera DO [address] [place] [address] [email or web address] Historical LMR Provider 07/20/17 08/16/20 Brodie Self DO [address] [place] [address] [email or web address] Historical LMR Provider 07/20/17 10/06/21 Cassi Whitley NP [address] [place] [address] [email or web address] Historical LMR Provider 07/20/17 10/06/21 Ayah Sosa MD [address] [place] [phone] Historical LMR Provider 07/20/17 2 Yuan Winslow MD [address] [address] [email or web address] Historical LMR Provider Hematology and Oncology 08/17/20 10/14/21 Sarah Farley MD [address] [place] [address] [email or web address] Primary Oncologist Hematology and Oncology 05/10/21 10/16/21 Philip Mendez MD, PhD [address] [place] [phone] [email or web address] Consulting Provider Hematology 11/28/21 06/19/22 Angy Amado PA-C [address] [place] [address] [email or web address] Physician Retail Support Manager Hematology 06/20/22 documented as of this encounter Additional Source Comments The information contained in this document represents components of the legal health record. It is not the complete legal health record.[facility]
--- OUTSIDE RECORDS SUMMARY | 2025-07-01 13:09 | XMS_ITS | Encounter Summary ---
Author Organization [facility] Address [address] [place] [address] Phone Care Team Providers Care Nurse'S Companion Name Role Phone Brodie Self DO Primary Care Provider [phone] Gerri Rivera DO Unavailable [phone] Brodie Self DO Unavailable [phone] Cassi Whitley SODA TESTER Unavailable [phone] Ayah Sosa MD Unavailable [phone] Juan David Ramos MD Primary Care Provide r Yuan Winslow MD Unavailable Sarah Farley MD Unavailable Philip Mendez MD, PhD Unavailable Angy Amado-C Unavailable Michele Pal Primary Care Provider + Encounter Details Date Type Department Care Team (Late st Contact Info) Description 09/15/2018 Procedure Pass [facility] Endoscopy Admitting Dept Virtual Department [address] [place] [address] Social History Tobacco Use Types [...] Info) Description 08/08/2025 11:10 AM EST Appointment [facility] Laboratory [address] [place] [address] Angy Amado PA-C [address] [place] [address] 02/08/2026 1:00 PM EDT Appointment [facility] Laboratory [address] [place] [address] Angy Amado PA-C [address] [place] [address] 02/08/2026 2:00 PM EDT Office Visit [facility] Center at [address] [address] Angy Amado PA-C [address] [place] [address] documented as of this encounter Visit Diagnoses Not on filedocumented in this encounter Care Teams Nurse'S Companion Relationship Specialty Start Date End Date Brodie Self DO [address] [place] [address] PCP - General 07/17/17 10/21/18 Juan David Ramos MD [address] [address] PCP - General Family Medicine 10/22/18 08/25/22 Michele Pal PA [address] [place] [address] PCP - General 08/26/22 Gerri Rivera DO [address] [place] [address] [email or web address] Historical LMR Provider 07/20/17 08/16/20 Brodie Self DO [address] [place] [email or web address] Historical LMR Provider 07/20/17 10/06/21 Cassi Whitley NP [address] [place] [address] [email or web address] Historical LMR Provider 07/20/17 10/06/21 Ayah Sosa MD [address] [place] [phone] Historical LMR Provider 07/20/17 2 Yuan Winslow MD [address] [address] [email or web address] Historical [email or web address] Provider Hematology and Oncology 08/17/20 10/14/21 Sarah Farley MD [address] [place] [address] [email or web address] Primary Oncologist Hematology and Oncology 05/10/21 10/16/21 Philip Mendez MD, PhD [address] [place] [address] [email or web address] Consulting Provider Hematology 11/28/21 06/19/22 Angy Amado PA-C [address] [place] [address] [email or web address] Physician Harness Maker Hematology 06/20/22 documented as of this encounter Additional Source Comments The information contained in this document represents components of the legal health record. It is not the complete legal health record.[facility]
--- OUTSIDE RECORDS SUMMARY | 2025-07-01 13:09 | XMS_ITS | Encounter Summary ---
Author Organization [facility] Address [address] [place] [address] Phone Care Team Providers Care Second Class Welder Name Role Phone AramisBrodie Joseline ROD Unavailable [phone] Cassi Whitley FOOD AND NUTRITION SERVICES ASSISTANT Unavailable [phone] Ayah Sosa MD Unavailable [phone] Juan David Ramso MD Primary Care Provide r Yuan Winslow MD Unavailable Sarah Farley MD Unavailable Philip Mendez MD, PhD Unavailable Angy Amado-C Unavailable [phone] Michele Pal Primary Care Provider + Encounter Details Date Type Department Care Team (Late st Contact Info) Description 08/21/2020 Procedure Pass [facility], [address] [address] Social History Tobacco Use Types Packs/Day Years [...] Info) Description 08/08/2025 11:10 AM EST Appointment [facility] [address] [place] [address] Angy Amado PA-C [address] [place] [address] 02/08/2026 1:00 PM EDT Appointment [facility] [address] [place] [address] Angy Amado PA-C [address] [place] [phone] 02/08/2026 2:00 PM EDT Office Visit [facility] at [address] [address] Angy Amado PA-C [address] [place] [phone] documented as of this encounter Visit Diagnoses Not on filedocumented in this encounter Care Teams Second Class Welder Relationship Specialty Start Date End Date Juan David Ramos MD [address] [address] PCP - General Family Medicine 10/22/18 08/25/22 [place] [address] [place] [address] PCP - General 08/26/22 Brodie Self DO [address] [place] [address] Historical LMR Provider 07/20/17 10/06/21 Cassi Whitley, FOOD AND NUTRITION SERVICES ASSISTANT [address] [place] [address] [email or web address] Historical LMR Provider 07/20/17 10/06/21 Ayah Sosa MD [address] [place] [address] Historical LMR Provider 07/20/17 2 Yuan Winslow MD [address] [address] [email or web address] Historical LMR Provider Hematology and Oncology 08/17/20 10/14/21 Sarah Farley MD [address] [place] [address] [email or web address] Primary Oncologist Hematology and Oncology 05/10/21 10/16/21 Philip Mendez MD, PhD [address] [place] [address] [email or web address] Consulting Provider Hematology 11/28/21 06/19/22 Angy Amado PA-C [address] [place] [address] [email or web address] Physician Dust Collector Attendant Hematology 06/20/22 documented as of this encounter Additional Source Comments The information contained in this document represents components of the legal health record. It is not the complete legal health record.[facility]
--- OUTSIDE RECORDS SUMMARY | 2025-07-01 13:09 | XMS_ITS | Encounter Summary ---
Author Organization [facility] Address [address] [place] [address] Phone Care Team Providers Care Rn Interventional Name Role Phone Gerri Rivera DO Unavailable [phone] Brodie Self DO Unavailable [phone] Cassi Whitley ENVIRONMENTAL CONSERVATION OFFICER Unavailable [phone] Ayah Sosa MD Unavailable [phone] Juan David Ramos MD Primary Care Provide r Yuan Winslow MD Unavailable Sarah Farley MD Unavailable Philip Mendez MD, PhD Unavailable Angy Amado-C Unavailable [phone] Michele Pal Primary Care Provider + Encounter Details Date Type Department Care Team (Late st Contact Info) Description 11/10/2018 Procedure Pass [facility] Admitting Dept Virtual Department [address] [place], [place] [id number] Social History Tobacco Use Types Packs/Day Years [...] Info) Description 08/08/2025 11:10 AM EST Appointment [facility] [address] [place] [address] Angy Amado PA-C [address] [place] [address] 02/08/2026 1:00 PM EDT Appointment [facility] [address] [place] [address] Angy Amado PA-C [address] [place] [phone] 02/08/2026 2:00 PM EDT Office Visit [facility] at [address] [address] Angy Amado PA-C [address] [place] [address] documented as of this encounter Visit Diagnoses Not on filedocumented in this encounter Care Teams Rn Interventional Relationship Specialty Start Date End Date Juan David Ramos MD [address] [address] PCP - General Family Medicine 10/22/18 08/25/22 Michele Pal PA [address] [place] [address] PCP - General 08/26/22 Gerri Rivera DO [address] [place] [address] [email or web address] Historical LMR Provider 07/20/17 08/16/20 Brodie Self DO [address] [place] [email or web address] Historical LMR Provider 07/20/17 10/06/21 Cassi Whitley, ENVIRONMENTAL CONSERVATION OFFICER [address] [place] [address] [email or web address] Historical LMR Provider 07/20/17 10/06/21 Ayah Sosa MD [address], [place] [address] Historical LMR Provider 07/20/17 2 [place] [address] [address] [email or web address] Historical LMR Provider Hematology and Oncology 08/17/20 10/14/21 Sarah Farley MD [address] [place] [phone] [email or web address] Primary Oncologist Hematology and Oncology 05/10/21 10/16/21 Philip Mendez MD, PhD [address] [place] [email or web address] Consulting Provider Hematology 11/28/21 06/19/22 Angy Amado PA-C [address] [place] [address] [email or web address] Physician V Block Saw Operator Hematology 06/20/22 documented as of this encounter Additional Source Comments The information contained in this document represents components of the legal health record. It is not the complete legal health record.[facility]
== END 2025-07-01 13:44 | disposition home or self-care (01) ==
LOC: HO.HGI 12:27
PROVIDERS: PCP Physician Assistant; Visit Provider Nurse Practitioner
DX: R19.7 Diarrhea, unspecified (principal); R14.0 Abdominal distension (gaseous)
CPT/HCPCS: 99213

== ENCOUNTER → 2025-07-01 12:26 | Outpatient (BNVA) | payer MEDICARE, OTHER, SELFPAY | PROVIDERS: PCP Physician Assistant; Visit Provider Nurse Practitioner | DX: R14.0 Abdominal distension (gaseous) (principal); R19.7 Diarrhea, unspecified | CPT/HCPCS: 99212 ==

== ENCOUNTER 2025-07-28 10:47 | Outpatient (AMB) | payer MEDICARE, OTHER, SELFPAY ==
[2025-07-28 10:49] VITALS: BP 179/92; PULSE 66; RESP 16; O2SAT 99; BMI 22.8
--- NOTE | 2025-07-28 10:49 | A.OFFVIS_ITS ---
Vital Signs 07/28/25 10:49 Height 5 ft 3 in Weight 129 lb BMI 22.8 BP 179/92 H Blood Pressure Location Rt brachial Position Sitting Respiration 16 Pulse 66 Pulse Source Pulse Oximeter Pulse Oximetry (%) 99 Oxygen Delivery Method Room Air Intake Visit Reasons: Sacrococcygeal disorders, not elsewhere classified Pickle Processor Required: No Accompanied by: Self / Same As Patient Allergies No Known Allergies (No Known Allergies*) Allergy (Verified 07/01/25 12:33) HPI Comments Details: Ema is very pleasant 69 years old female who presents in my office with complains on axial back pain. She reports that this pain started in 2020. She reports the pain does not radiate into bilateral lower extremities. Because of her pain she can not sleep normally can not do activities of daily living she is able to take care of herself but she can not function normally. 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 Weather changes and motions aggravate her pain. Cool application and oral medications make her pain slightly better. In terms of tissue damage he reports her pain as stabbing, sharp, cutting, cramping, pulling, stinging, sore, hurting, aching, exhausting, radiating, tight sensation. She had multiple images which are demonstrable in [facility]. She had physical therapy 2 years ago for the right hip pain and it aggravated her pain she tried 10s unit and 10s unit helped a lot her pain condition. She reported sacroiliac joint injection on the right with steroid. (Dr. Duncan) her past medical history significant for him a little shell tribe mitosis, pancreatic insufficiency and arthritis. No hypertension no problems with the lungs. Past surgical history significant for sling procedure, social history she stopped smoking cigarettes 18 years ago she denies drinking alcohol she takes Yarba mate 2 cups a day and she denies recreational drugs. COUNTS INCLUDE 234 BEDS AT [facility] Medical History Right shoulder pain Colon cancer screening History of measles, mumps, rubella (MMR) vaccination unknown Bilateral hip pain Pain of right sacroiliac joint Annual physical exam Right hip pain Back pain Acute low back pain Vesicular rash Encounter to establish care Screening for diabetes mellitus (DM) Screening for hypothyroidism Screening for hypercholesterolemia COVID-19 Osteoporosis Hemochromatosis No known health problems Surgical History History of bladder suspension procedure History of esophagogastroduodenoscopy (EGD) H/O colonoscopy Family History Other Mental health disorder Social History Household Members Other:: partner Housing: House Alcohol intake: current Alcohol intake frequency: 0-2 drinks per day Alcohol type: beer Patient Tobacco Use Status: Former Tobacco user Cigarettes Per Day: 20 Years Smoked: 15 e-Cigarette/Vaping Use: Never Used Second Hand Smoke Exposure: No Advance Directives Date on File: 10/08/21 service: No Current occupational status: retired Cognitive needs: No Hearing needs: No Vision needs: Yes (Glasses) Review of Systems Const All systems reviewed & are unremarkable except as noted in HPI and below ENT Reports Normal hearing present Neuro Reports Normal hearing present, Denies Abnormal speech present, Denies confusion and Denies Sensory deficit (Neuro) Psych Denies confusion Physical Exam Vital Signs: Last Vital Signs Pulse 66 07/28/25 10:49 Resp 16 07/28/25 10:49 BP 179/92 H 07/28/25 10:49 Pulse Ox 99 07/28/25 10:49 Oxygen Delivery Method Room Air 07/28/25 10:49 BMI result Body Mass Index 22.8 Const General: no acute distress; No confusion Orientation/consciousness: patient oriented x3 and No confusion Eyes General: appearance normal, both eyes and all related structures Pupils: Equal, round and reactive pupils present EOM: EOMs intact bilaterally Neck Neck: Yes full ROM Chest Chest palpation & inspection: normal inspection of the chest Resp Effort & Inspection: normal respiratory effort, able to speak in complete sentences, normal respiratory pattern, no audible wheezes and no cough Cardio Jugular venous distension: no JVD GI Inspection: Yes normal to inspection Back/Spine/Pelvis Other: Able to stand on bilateral tiptoes and bilateral heels without difficulty. Able to flex herself forward however flexing forward aggravate her pain. Valsalva maneuver is negative. Mark test is positive on the right, Gaenslen test is positive on the right, pelvic compression test is positive on the right. SLR is negative bilaterally. Neuro General: patient oriented x3, gait normal and No confusion Cranial nerves: Yes CN's II-XII intact bilaterally, Yes Equal, round and reactive pupils present, Yes Normal hearing present and Yes Ability to lino aterally elevate shoulders present Speech: No Abnormal speech present Gait exam (Neuro): Normal gait present Motor exam (neuro): 5/5 motor strength present throughout Sensory Exam: No Sensory deficit (Neuro) Extrem General: No pedal edema Psych Speech and movement: Normal speech and movement present Affect: normal affect Attitude: cooperative Thought process: Normal thought process present Thought content: Normal thought content present Insight: Good insight present (Psych) Judgement: Good judgement present (Psych) Results Reviewed Results Reviewed: MR right hip with and without Findings: No bone marrow edema or abnormal enhancement. Normal alignment without subluxation. No retroversion, over coverage, os acetabuli. Normal head neck angle. No fibrocystic lesion of the femoral neck. No dysplasia. Trace joint fluid. There is increased signal and irregularity in the labrum most prominent at the anterior aspect, also present on the prior study although more extensive on this examination. Partial-thickness femoral/acetabular chondromalacia. Increased signal in ligamentum teres. The capsule and ligaments are otherwise normal. Tear of gluteus medius and minimus tendons at their insertion upon greater trochanter. Adjacent edema and enhancement without a discrete fluid collection; on the prior study there was a trace amount of fluid. Otherwise unremarkable muscle, tendons and entheses. Normal vessels, nerves and soft tissues. No acute intrapelvic pathology. Colonic diverticulosis. Impression: Tear of the labrum, also present on the prior study, although more extensive. Trace joint effusion. Partial-thickness femoral/acetabular chondromalacia, degenerative. Increased signal in ligamentum teres may indicate partial tear, degenerative. Tears of gluteus medius and minimus tendons at their insertion upon the greater trochanter, also present on the prior study. There is edema and enhancement indicating inflammation without a discrete fluid collection to indicate trochanteric bursitis. Assessment & Plan Assessment & Plan (1) Sacroiliitis: Code(s): M46.1 - Sacroiliitis, not elsewhere classified Category: Medical (2) Sacroiliac joint dysfunction of right side: Code(s): M53.3 - Sacrococcygeal disorders, not elsewhere classified Category: Medical (3) Spondylosis of lumbar region without myelopathy or radiculopathy: Code(s): M47.816 - Spondylosis without myelopathy or radiculopathy, lumbar region Category: Medical (4) Chronic pain syndrome: Code(s): G89.4 - Chronic pain syndrome Category: Medical Plan This patient had an MRI of the right hip joint and it demonstrated labral tear. Her pain could be related to this condition however on physical exam she does exhibit signs of sacroiliitis. I offered to perform diagnostic sacroiliac joint injection. The patient had very poor experience last time she had therapeutic sacroiliac joint injection. She stated that it was ?worse pain I ever had in my life ?. I will schedule her for this procedure under sedation. Coding Level of Care Code New Pt Level 3 (76793) Diagnoses Sacroiliitis M46.1 Sacroiliac joint dysfunction of right side M53.3 Spondylosis of lumbar region without myelopathy or radiculopathy M47.816 Chronic pain syndrome G89.4
== END 2025-07-28 11:15 | disposition home or self-care (01) ==
LOC: HO.PMC 10:48
PROVIDERS: PCP Physician Assistant; Visit Provider Anesthesiology
DX: M46.1 Sacroiliitis, not elsewhere classified (principal); M53.3 Sacrococcygeal disorders, not elsewhere classified; M47.816 Spondylosis without myelopathy or radiculopathy, lumbar region; G89.4 Chronic pain syndrome
CPT/HCPCS: 99203

== ENCOUNTER → 2025-07-28 10:47 | Outpatient (BNVA) | payer MEDICARE, OTHER, SELFPAY | PROVIDERS: PCP Physician Assistant; Visit Provider Anesthesiology | DX: G89.4 Chronic pain syndrome (principal); M47.816 Spondylosis without myelopathy or radiculopathy, lumbar region; M53.3 Sacrococcygeal disorders, not elsewhere classified; M46.1 Sacroiliitis, not elsewhere classified | CPT/HCPCS: 99202 ==

== ENCOUNTER 2025-09-09 10:33 | Outpatient (AMB) | payer MEDICARE, OTHER, SELFPAY ==
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
[2025-09-09 10:44] VITALS: BP 122/72; BMI 22.5
== END 2025-09-09 11:21 | disposition home or self-care (01) ==
LOC: HO.HWS 10:34
PROVIDERS: PCP Physician Assistant; Visit Provider Advanced Practice Midwife
DX: Z01.419 Encounter for gynecological examination (general) (routine) without abnormal findings (principal); N95.1 Menopausal and female climacteric states; Z12.39 Encounter for other screening for malignant neoplasm of breast; N95.2 Postmenopausal atrophic vaginitis
CPT/HCPCS: G0101

== ENCOUNTER → 2025-09-09 10:33 | Outpatient (BNVA) | payer MEDICARE, OTHER, SELFPAY | PROVIDERS: PCP Physician Assistant; Visit Provider Advanced Practice Midwife | DX: Z01.419 Encounter for gynecological examination (general) (routine) without abnormal findings (principal); N95.1 Menopausal and female climacteric states; N95.2 Postmenopausal atrophic vaginitis; G89.29 Other chronic pain; M54.50 Low back pain, unspecified; F32.A Depression, unspecified; M81.0 Age-related osteoporosis without current pathological fracture | CPT/HCPCS: G0101 ==